=== PATIENT | male | born 1950 | race African-American/Black ===

== ENCOUNTER → 2016-11-17 | Outpatient (CLI) | payer MEDICARE, OTHER ==
[2016-11-17 11:25] VITALS: BP 105/68; PULSE 58; RESP 14; TEMP 98; BMI 25.0
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
== END | disposition home or self-care (01) ==
LOC: BARWHC3 11:08
PROVIDERS: ATTEND Surgery Plastic and Reconstructive Surgery
DX: Z48.815 Encounter for surgical aftercare following surgery on the digestive system (principal); E21.1 Secondary hyperparathyroidism, not elsewhere classified; E89.1 Postprocedural hypoinsulinemia; D50.8 Other iron deficiency anemias; E44.0 Moderate protein-calorie malnutrition; E55.9 Vitamin D deficiency, unspecified; K74.1 Hepatic sclerosis; N19 Unspecified kidney failure; K90.9 Intestinal malabsorption, unspecified; Z98.84 Bariatric surgery status
CPT/HCPCS: 99211

== ENCOUNTER → 2016-11-18 | Outpatient (CLI) | payer MEDICARE, OTHER ==
[2016-11-18 11:13] LABS: CH 28.7; CHCM 31.6; HCT 34.3 % (39.0-53.0); HDW 2.44; HGB 10.9 gm/dL (13.0-17.5); MCH 29.2 pg (25.0-35.0); MCHC 31.9 g/dL (31.0-37.0); MCV 91.4 fL (80.0-100.0); RBC 3.75 m/uL (4.30-5.90); RDW 14.5 % (11.5-15.5); WBC 4.2 k/uL (3.8-10.6)
[2016-11-18 11:15] LABS: Partial Thromboplastin Time 26.6 sec (22.0-30.0); Prothrombin Time 10.6 sec (9.0-12.0)
[2016-11-18 11:24] LABS: ALT 34 U/L (21-72); AST 27 U/L (17-59); Alkaline Phosphatase 114 U/L (38-126); Anion Gap 11 mmol/L; Blood Urea Nitrogen 29 mg/dL (9-20); Calcium 8.3 mg/dL (8.4-10.2); Carbon Dioxide 20 mmol/L (22-30); Chloride 113 mmol/L (98-107); Cholesterol 90 mg/dL (<200); Glucose 88 mg/dL (74-99); HDL Cholesterol 43 mg/dL (40-60); Iron 57 ug/dL (49-181); Magnesium 2.2 mg/dL (1.6-2.3); Non-African American GFR(MDRD) 29 (>60 ml/min/1.73 sqM); Phosphorous 4.9 mg/dL (2.5-4.5); Potassium 5.7 mmol/L (3.5-5.1); Sodium 144 mmol/L (137-145); Total Bilirubin 0.3 mg/dL (0.2-1.3); Total Protein 6.3 g/dL (6.3-8.2); Triglycerides 40 mg/dL (<150)
[2016-11-18 11:37] LABS: Prealbumin 18 mg/dL (18-36); Total Iron Binding Capacity 271 ug/dL (261-462)
[2016-11-18 12:33] LABS: Vitamin B12 496 pg/mL
[2016-11-18 14:09] LABS: Hemoglobin A1C 5.3 % (4.2-6.1)
[2016-11-23 14:09] LABS: Selenium 88 mcg/L (63-160)
== END | disposition home or self-care (01) ==
LOC: LABWHC1 10:41
PROVIDERS: ATTEND Surgery Plastic and Reconstructive Surgery
DX: E66.01 Morbid (severe) obesity due to excess calories (principal); E21.1 Secondary hyperparathyroidism, not elsewhere classified; D50.8 Other iron deficiency anemias; K90.89 Other intestinal malabsorption; E44.0 Moderate protein-calorie malnutrition; E55.9 Vitamin D deficiency, unspecified; K74.1 Hepatic sclerosis; N19 Unspecified kidney failure; K90.9 Intestinal malabsorption, unspecified
CPT/HCPCS: 36415; 80053; 80061; 82306; 82525; 82607; 82728; 82746; 83036; 83540; 83550; 83735; 83970; 84100; 84134; 84255; 84425; 84443; 84590; 84630; 85027; 85610; 85730

== ENCOUNTER → 2016-12-15 | Outpatient (CLI) | payer MEDICARE, OTHER ==
[2016-12-15 11:40] VITALS: BP 144/95; PULSE 75; RESP 20; TEMP 98.3; BMI 25.4
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
== END | disposition home or self-care (01) ==
LOC: BARWHC3 10:56
PROVIDERS: ATTEND Surgery Plastic and Reconstructive Surgery
DX: Z48.815 Encounter for surgical aftercare following surgery on the digestive system (principal); E66.01 Morbid (severe) obesity due to excess calories; Z68.41 Body mass index [BMI] 40.0-44.9, adult; Z98.84 Bariatric surgery status
CPT/HCPCS: 99211

== ENCOUNTER → 2016-12-20 | Outpatient (CLI) | payer MEDICARE, OTHER ==
--- NOTE | 2016-12-20 11:45 | US ---
EXAMINATION TYPE: US kidneys/renal and bladder DATE OF EXAM: 12/20/2016 10:22 AM COMPARISON: CT in PACS CLINICAL HISTORY: 66-year-old male N18.3 chronic kidney disease. Chronic Kidney Diease TECHNIQUE: Multiple sonographic images of the kidneys and bladder were obtained. FINDINGS: Right Kidney: 8.5 x 3.7 x 4.3 cm Left Kidney: 9.5 x 4.1 x 4.6 cm Right Kidney: Very difficult to evaluate due to overlying bowel gas, much of mid to lower pole is obs cured. No gross hydronephrosis. Left Kidney: No hydronephrosis. Bladder: Bladder wall thickening at 1.1 cm BilateraNoJets seen: No PRESSION: 1. No hydronephrosis seen. Much of the mid to lower pole of the right kidney is obscured and not eval uated. 2. Moderate circumferential bladder wall thickening. Correlate for cystitis or bladder wall hypertrop hy from chronic outlet obstruction.
== END | disposition home or self-care (01) ==
LOC: RADUSWWP 10:00
PROVIDERS: ATTEND Internal Medicine Nephrology
DX: N18.3 Chronic kidney disease, stage 3 (moderate) (principal)
CPT/HCPCS: 76770

== ENCOUNTER → 2017-02-02 | Outpatient (CLI) | payer MEDICARE, OTHER ==
[2017-02-02 14:27] VITALS: BP 138/83; PULSE 81; TEMP 97.8; BMI 25.6
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
== END | disposition home or self-care (01) ==
LOC: BARWHC3 11:03
PROVIDERS: ATTEND Surgery Plastic and Reconstructive Surgery
DX: Z48.815 Encounter for surgical aftercare following surgery on the digestive system (principal); M79.3 Panniculitis, unspecified; Z98.84 Bariatric surgery status; Z68.25 Body mass index [BMI] 25.0-25.9, adult
CPT/HCPCS: 99211

== ENCOUNTER → 2017-03-23 | Outpatient (CLI) | payer MEDICARE, OTHER ==
--- NOTE | 2017-03-23 10:37 | P.PN ---
Progress Note - Text To whom it may concern: Mr. Kevin Rankin is under my surgical care and has scheduled to undergo major surgery the week of May 01. He is under medical supervision in the interim. Regards, Valery Wills MD, FACS
[2017-03-23 10:39] VITALS: BP 149/91; PULSE 58; RESP 16; TEMP 98.4; BMI 25.5
== END | disposition home or self-care (01) ==
LOC: BARWHC3 10:20
PROVIDERS: ATTEND Surgery Plastic and Reconstructive Surgery
DX: Z48.815 Encounter for surgical aftercare following surgery on the digestive system (principal); Z98.84 Bariatric surgery status
CPT/HCPCS: 99211

== ENCOUNTER → 2017-04-20 | Outpatient (CLI) | payer MEDICARE, OTHER ==
[2017-04-20 11:57] LABS: CH 30.6; CHCM 31.3; HCT 39.1 % (39.0-53.0); HDW 2.32; HGB 12.4 gm/dL (13.0-17.5); MCH 31.2 pg (25.0-35.0); MCHC 31.7 g/dL (31.0-37.0); MCV 98.3 fL (80.0-100.0); Mean Platelet Volume 7.6; RBC 3.98 m/uL (4.30-5.90); RDW 13.6 % (11.5-15.5); WBC 4.3 k/uL (3.8-10.6)
[2017-04-20 12:05] LABS: Calcium 8.6 mg/dL (8.4-10.2); Potassium 5.1 mmol/L (3.5-5.1); Total Bilirubin 0.3 mg/dL (0.2-1.3); Total Protein 6.2 g/dL (6.3-8.2)
[2017-04-20 15:12] VITALS: BP 152/98; PULSE 56; RESP 15; TEMP 97.7; BMI 25.4
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
== END ==
LOC: BARWHC3 10:47
PROVIDERS: ATTEND Surgery Plastic and Reconstructive Surgery
DX: D50.9 Iron deficiency anemia, unspecified (principal); I13.10 Hypertensive heart and chronic kidney disease without heart failure, with stage 1 through stage 4 chronic kidney disease, or unspecified chronic kidney disease; I10 Essential (primary) hypertension; M17.0 Bilateral primary osteoarthritis of knee; N18.3 Chronic kidney disease, stage 3 (moderate); E66.01 Morbid (severe) obesity due to excess calories; Z68.25 Body mass index [BMI] 25.0-25.9, adult; Z87.39 Personal history of other diseases of the musculoskeletal system and connective tissue; Z98.84 Bariatric surgery status
CPT/HCPCS: 84134; 84425; 80053; 85027; 36415; G0463; 99211

== ENCOUNTER → 2017-06-14 | Outpatient (CLI) | payer MEDICARE, OTHER ==
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
== END | disposition home or self-care (01) ==
CPT/HCPCS: 99211

== ENCOUNTER → 2017-10-09 | Outpatient (CLI) | payer MEDICARE, OTHER ==
--- NOTE | 2017-10-09 08:48 | CT ---
EXAMINATION TYPE: CT chest wo con DATE OF EXAM: 10/09/2017 COMPARISON: 05/21/2017, 07/08/2016 HISTORY: Abnormal CT of Chest CT DLP: 491 mGycm. Automated Exposure Control for Dose Reduction was Utilized. TECHNIQUE: CT scan of the thorax is performed without IV contrast. FINDINGS: Exam limited by lack of contrast. LUNGS: The lungs are grossly clear, there is no concerning parenchymal mass or nodule identified. T here is no pleural effusion or pneumothorax seen. The tracheobronchial tree is patent. Linear areas of subsegmental consolidation noted bilaterally most typical scar or atelectasis. There is a 3 mm nod ule within the right middle lobe on axial image 34. Additional 3 mm nodule axial image 30. Additional nodule 3 mm left upper lobe axial image 27 and 2 mm nodule image 22 MEDIASTINUM: Lack of IV contrast is noted to limit evaluation for mediastinal and especially hilar ad enopathy. There are no definitive greater than 1 cm hilar or mediastinal lymph nodes. Mild cardiomega ly. There is mild aneurysmal dilation the aortic arch and descending aorta measuring 4.[address] dimension. OTHER: Degenerative and hypertrophic changes spine. Previous surgery involving the upper abdomen. IMPRESSION: 1. There are multiple less than 5 mm pulmonary nodules which are noncalcified and too small to charac terize. Some of the nodules are not present on the CT scan of the chest dated 07/08/2016. Recommend fo llow-up CT scan in 6 months. 2. Cardiomegaly with areas of subsegmental consolidation compatible scarring or atelectasis. 3. Mild aneurysmal dilation aortic arch measuring 4.[address] scan of 07/08/2016.
== END | disposition home or self-care (01) ==
LOC: RADCTMAIN 07:22
PROVIDERS: ATTEND Internal Medicine
DX: I51.7 Cardiomegaly (principal); I71.2 Thoracic aortic aneurysm, without rupture; R91.8 Other nonspecific abnormal finding of lung field
CPT/HCPCS: 71250

== ENCOUNTER → 2017-10-11 | Outpatient (CLI) | payer MEDICARE, OTHER ==
[2017-10-11 15:49] VITALS: BP 149/85; PULSE 82; TEMP 97.5; BMI 24.5
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
== END | disposition home or self-care (01) ==
LOC: BARWHC3 14:40
PROVIDERS: ATTEND Surgery Plastic and Reconstructive Surgery
DX: Z48.815 Encounter for surgical aftercare following surgery on the digestive system (principal); R63.4 Abnormal weight loss; D50.9 Iron deficiency anemia, unspecified; I13.10 Hypertensive heart and chronic kidney disease without heart failure, with stage 1 through stage 4 chronic kidney disease, or unspecified chronic kidney disease; N18.3 Chronic kidney disease, stage 3 (moderate); K40.20 Bilateral inguinal hernia, without obstruction or gangrene, not specified as recurrent; M17.0 Bilateral primary osteoarthritis of knee; K21.9 Gastro-esophageal reflux disease without esophagitis; G47.33 Obstructive sleep apnea (adult) (pediatric); Z87.891 Personal history of nicotine dependence; Z86.59 Personal history of other mental and behavioral disorders; Z79.891 Long term (current) use of opiate analgesic; Z79.899 Other long term (current) drug therapy; Z79.02 Long term (current) use of antithrombotics/antiplatelets; Z98.84 Bariatric surgery status; Z86.73 Personal history of transient ischemic attack (TIA), and cerebral infarction without residual deficits
CPT/HCPCS: 99211

== ENCOUNTER → 2017-10-13 | Outpatient (CLI) | payer MEDICARE, OTHER ==
--- NOTE | 2017-10-13 08:39 | US ---
EXAMINATION TYPE: US abdomen limited DATE OF EXAM: 10/13/2017 COMPARISON: NONE CLINICAL HISTORY: R10.11 RUQ PAIN. Abd pain, no nausea EXAM MEASUREMENTS: Liver Length: 14.6 cm Gallbladder Wall: 0.1 cm CBD: 0.6 cm Right Kidney: 8.0 x 4.2 x 4.0 cm Pancreas: not seen due to bowel gas Liver: wnl Gallbladder: 0.4cm echogenic foci that is non shadowing and non mobile on posterior wall, probable p olyp Evidence for sonographic Ryder's sign: no CBD: wnl Right Kidney: small in size IMPRESSION: 1. Probable 4 mm gallbladder polyp. Annual surveillance is recommended for polyps of this size. 2. No sonographic evidence of acute cholecystitis.
== END | disposition home or self-care (01) ==
LOC: RADUSWWP 07:10
PROVIDERS: ATTEND Surgery Plastic and Reconstructive Surgery
DX: R10.11 Right upper quadrant pain (principal)
CPT/HCPCS: 76705

== ENCOUNTER → 2017-10-18 | Outpatient (CLI) | payer MEDICARE, OTHER ==
[2017-10-18 16:09] LABS: Appearance,Urine Clear (Clear); Bilirubin,Urine Negative (Negative); Blood,Urine Negative (Negative); Color,Urine Yellow; Glucose,Urine (UA) Negative (Negative); Ketones,Urine Negative (Negative); Leukocyte Esterase,Urine Negative (Negative); Nitrite,Urine Negative (Negative); PH, Urine 5.5 (5.0-8.0); Protein,Urine Trace (Negative); Urobilinogen,Urine <2.0 mg/dL (<2.0)
[2017-10-18 16:27] LABS: Albumin 3.7 g/dL (3.5-5.0); Magnesium 2.2 mg/dL (1.6-2.3); Phosphorus 3.9 mg/dL (2.5-4.5); Potassium 5.5 mmol/L (3.5-5.1); Uric Acid 5.1 mg/dL (3.5-8.5)
[2017-10-18 16:51] LABS: Anisocytosis Slight; Basophils % (A) 0 %; Eosinophils # (A) 0.2 k/uL (0-0.7); Eosinophils % (A) 4 %; HCT 36.7 % (39.0-53.0); HGB 11.7 gm/dL (13.0-17.5); Lymphocytes # (A) 1.1 k/uL (1.0-4.8); Lymphocytes % (A) 23 %; MCH 27.8 pg (25.0-35.0); MCHC 31.9 g/dL (31.0-37.0); MCV 87.1 fL (80.0-100.0); Mean Platelet Volume 8.3; Monocytes # (A) 0.4 k/uL (0-1.0); Monocytes % (A) 8 %; Neutrophils # (A) 3.2 k/uL (1.3-7.7); Neutrophils % (A) 62 %; Platelet Count 149 k/uL (150-450); RBC 4.21 m/uL (4.30-5.90); RDW 16.3 % (11.5-15.5); WBC 5.1 k/uL (3.8-10.6)
[2017-10-19 01:34] LABS: Iron Saturation 41.5 (15.00-50.00)
[2017-10-19 02:23] LABS: Parathyroid Hormone Intact 135.8 pg/mL (14.0-72.0)
== END | disposition home or self-care (01) ==
LOC: LABWHC1 15:14
PROVIDERS: ATTEND Nurse Practitioner Family
DX: E55.9 Vitamin D deficiency, unspecified (principal); M10.9 Gout, unspecified; N39.0 Urinary tract infection, site not specified; E21.3 Hyperparathyroidism, unspecified; D63.1 Anemia in chronic kidney disease; N18.3 Chronic kidney disease, stage 3 (moderate)
CPT/HCPCS: 36415; 80048; 81003; 82040; 82306; 82728; 83540; 83550; 83735; 83970; 84100; 84550; 85025

== ENCOUNTER 2017-11-10 06:22 | Day surgery (SDC) | payer MEDICARE, OTHER ==
[2017-11-03 11:32] VITALS: BMI 24.7
[~2017-11-10 06:22] MED LIST: DEXAMETHASONE SOD PHOSPHATE 10 MG/ML 1 ML VIAL IV ONE; HEPARIN SODIUM,PORCINE 5,000 UNIT/ML 1 ML VIAL SQ ONE; MIDAZOLAM 2 MG/2 ML VIAL IV PRN; MORPHINE SULFATE 4 MG/ML SYRINGE IV PRN; ONDANSETRON 4 MG/2 ML VIAL IVP ONE; SCOPOLAMINE 1.5MG/72HR PATCH TRANSDERM ONE; ceFAZolin IN SWFI 2 GM/20 ML SYRINGE IVP ONE
[2017-11-10] MEDS ORDERED: ACETAMINOPHEN IV (For NPO) 1,000 MG in EMPTY BAG 1 BAG IVPB ONE (06:28)
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
[2017-11-10] MEDS: LACTATED RINGERS 1,000 ML IV SCH ×2 (07:29→07:40)
[2017-11-10] MEDS ORDERED: LIDOCAINE 1% 20 ML VIAL (10MG/ML) FOR IV START INTRADERMA ONE ×2 (07:30→07:31)
[2017-11-10] MEDS ORDERED: MIDAZOLAM 2 MG/2 ML VIAL ONE (07:44)
[2017-11-10] MEDS ORDERED: NEOSTIGMINE 1 MG/ML 10 ML VIAL ONE (07:44)
[2017-11-10] MEDS ORDERED: ePHEDrine SULFATE/0.9% NACL/PF 50 MG/5 ML SYRINGE IV ONE (07:44)
[2017-11-10] MEDS ORDERED: SUCCINYLCHOLINE CHLORIDE 100 MG/5 ML SYR IV ONE (07:44)
[2017-11-10] MEDS ORDERED: LIDOCAINE 1% INJ 10MG/ML (20 ML MDV) ONE (07:44)
[2017-11-10] MEDS ORDERED: PROPOFOL 10 MG/ML 20 ML VIAL IV ONE (07:44)
[2017-11-10] MEDS ORDERED: GLYCOPYRROLATE 0.2 MG/ML 2 ML VIAL ONE (07:44)
[2017-11-10] MEDS ORDERED: ROCURONIUM BROMIDE 10 MG/ML 10 ML VIAL IV ONE (07:44)
[2017-11-10] MEDS ORDERED: HYDROmorphone (PF) 1 MG/ML ONE (07:44)
[2017-11-10] MEDS ORDERED: fentaNYL (PF) 50 MCG/ML 2 ML AMP ONE (07:44)
[2017-11-10] MEDS ORDERED: BUPIVACAINE (PF) 0.25% 30 ML VIAL SQ ONE (08:23)
[2017-11-10] MEDS ORDERED: TAMSULOSIN 0.4 MG CAP.ER.24H PO STA (11:05)
[2017-11-10 11:07] VITALS: TEMP 97.6
--- NOTE | 2017-11-10 11:16 | P.PCN ---
Date of Procedure: 11/10/17 Preoperative Diagnosis: Bilateral inguinal hernia Postoperative Diagnosis: Same, Pantaloon hernia left incarcerated, direct and indirect hernia right incarcerated, bilateral incarcerated inguinal lipomas Procedure(s) Performed: Robotic assisted bilateral inguinal hernia repairs with mesh, removal of bilateral inguinal lipomas Implants: Ventralight ST 11.4 cm [place] LOT [id number], REF [id number] Anesthesia: GETA, local Surgeon: Valery Wills Lab Support Service Tech #1: Fabrizio Bauer Pathology: other (bilateral inguinal lipoma) Condition: stable Disposition: floor Operative Findings: Pantaloon hernia on the left with larger inguinal and spermatic cord lipoma also excised. Spermatic cord lipoma bilateral also excised. Obliterated inguinal floor along left groin.
[2017-11-10] MEDS ORDERED: HYDROmorphone 0.5 MG/0.5 ML SYRINGE IVP ONE (11:18)
[2017-11-10] MEDS ORDERED: hydrALAZINE HCL 20 MG/ML 1 ML VIAL IVP ONE (11:57)
[2017-11-10 13:00] VITALS: RESP 18
[2017-11-10] MEDS ORDERED: LABETALOL 5 MG/ML VIAL MDV IV ONE (13:29)
[2017-11-10] MEDS ORDERED: HYDROcodone/APAP 10-325MG 1 EACH TAB PO ONE (13:30)
[2017-11-10 13:46] VITALS: BP 159/90; PULSE 71
--- NOTE | 2017-11-26 21:32 | P.OP ---
Date of Procedure: 11/10/17 Description of Procedure: SURGEON: ALIDA CABRAL MD THERAPEUTIC PROGRAM WORKER: 1. DEXTER STOVALL PREOPERATIVE DIAGNOSES: 1. Bilateral inguinal hernia. 2. Hypertensive heart disease with cardiomyopathy. 3. History of cerebrovascular accident. 4. History of hepatitis. 5. Stage III renal disease due to hypertension. 6. Chronic anemia. 7. History of gastric bypass. 8. History of neuropathy. 9. Gastroesophageal reflux disease. 10. Chronic pain syndrome. POSTOPERATIVE DIAGNOSES: 1. Bilateral inguinal hernia. 2. Hypertensive heart disease with cardiomyopathy. 3. History of cerebrovascular accident. 4. History of hepatitis. 5. Stage III renal disease due to hypertension. 6. Chronic anemia. 7. History of gastric bypass. 8. History of neuropathy. 9. Gastroesophageal reflux disease. 10. Chronic pain syndrome. 11. Bilateral incarcerated inguinal lipomas. 12. Direct and indirect hernia right incarcerated 13. Pantaloon hernia left incarcerated OPERATION: 1. Robotic-assisted da Juliana Xi laparoscopic repair of bilateral incarcerated inguinal hernia with mesh 2. Robotic-assisted da Juliana Xi laparoscopic excision of incarcerated bilateral inguinal and spermatic cord lipoma. ANESTHESIA: General with local anesthetic ESTIMATED BLOOD LOSS: 5 mL. SPECIMENS REMOVED: other (bilateral inguinal lipoma) COMPLICATIONS: None. Implants: Ventralight ST 11.4 cm [place] LOT [id number], REF [id number] Condition: stable INDICATIONS: The patient is a 67-year-old gentleman who presents with history of left groin pain. Now presents for definitive surgical intervention. Laparoscopic versus open and robotic approaches were discussed. Benefits and risks including bleeding, infection, and injury to the vas deferens as well as sterility and chronic groin pain were reviewed. Placement of mesh was also described. Informed consent was obtained. DESCRIPTION: In the preoperative area, the patient was marked with indelible marker along the inguinal hernia. The patient was brought to the operating room and initially laid in supine position. The abdomen had been prepped and draped in standard sterile fashion. Ioban draping was also placed. Huerta catheter was placed. Prior to incision, a timeout protocol was confirmed with surgical team regarding patient's name including procedures to be performed and location along the bilateral groin. Initial positioning for the robotic assisted ports were selected whereby 20 cm superior to the target anatomy, 0 degree 5 mm laparoscopic trocar entry was performed at the left upper quadrant. The abdomen was insufflated to 15 mmHg which he had tolerated well. Diagnostic laparoscopy demonstrated severe intra- abdominal adhesions of the greater omentum to the abdominal wall involving the epigastrium including left lower quadrant and right lower quadrant. Additionally, 4 cm direct inguinal hernia along the right groin was found. Next, along the epigastrium, 8 mm robot trocar was placed. An 8-mm robotic trocar was placed under direct visualization at the right upper quadrant. The 5 mm port was exchanged for an 8 mm trocar. All trocars were positioned 8 to 10-cm apart from each other. The [employer] XI robot was primed, draped, prepared for docking along the left side of the patient. I then went to the [employer] Xi console. The seed analysis laboratory assistant was at bedside for exchange of the robot arms and equipment. Along the abdominal wall, extensive lysis of adhesions over 1 hour was performed using blunt dissection including vessel sealer. Previous mesh repair of the epigastrium was found and also similarly resected from adhesions. Adhesions were also identified along the left lower quadrant with adhesions also resected. At the right groin, a 4 cm direct inguinal hernia was identified lateral to the epigastric vessels. The hernia sac was evaginated whereby the peritoneum was scored using Endo scissors with cautery. Once completely reduced into the abdominal cavity, the peritoneal sac of the hernia was stripped and a lipoma of the right groin was reduced. The sac was resected and then passed off for further pathological analysis. The size of the hernia defect was 4 cm with intraoperative films obtained. Using a 2-0 Surgidac, the peritoneal defect of the right inguinal hernia site was closed using a pursestring suture of 2-0 Surgidac. The defect was found to be completely closed with complete reduction of the right inguinal hernia was confirmed. As an onlay, an 11.[address] mesh by [employer] was initially cut in half and entered into the abdominal cavity via the 8 mm trocar. The mesh was tacked to the pelvis using 2-0 VLOC x 9-inch length sutures. At the left groin, a 4 cm pantaloon hernia involving indirect and direct inguinal hernia was identified. The hernia sac was evaginated whereby the peritoneum was scored using Endo scissors with cautery. Using a 2-0 Surgidac, the peritoneal defect of the left inguinal hernia site was closed using a pursestring suture of 2-0 Surgidac. The defect was found to be completely closed with complete reduction of the left inguinal hernia was confirmed. As an onlay, an 11.[address] mesh by [employer] was initially cut in half and entered into the abdominal cavity via the 8 mm trocar. The mesh was tacked to the pelvis using 2-0 VLOC x 9-inch length suture The robot was undocked from the patient's bedside. I then rescrubbed into the case. The fascial defect was reapproximated using 0-Vicryl and a Remi Amarilis. Insufflation was released from the abdominal cavity and all instruments were removed from the abdominal cavity. The rest of incisions were reapproximated using 4-0 Monocryl in a running subcuticular fashion. Local anesthetic was placed along the incision including bilateral groin block. Incisions were cleansed using dilute hydrogen peroxide. Dermabond was applied to the skin. At the end of the procedure, the needle, sponge and instrument counts had been verified correct by the director medical surgical. The patient had tolerated the procedure well and was taken to the postanesthesia care unit in stable condition. FINDINGS: 1. Pantaloon hernia on the left with larger inguinal and spermatic cord lipoma also excised, Nyhus type III. 2. Spermatic cord lipoma bilateral also excised. 3. Obliterated inguinal floor along left groin, Nyhus type III Plan - Discharge Summary New Discharge Prescriptions: New Tamsulosin [Flomax] 0.4 mg PO DAILY #7 cap Continue Carvedilol [Coreg] 25 mg PO BID Gabapentin [Neurontin] 600 mg PO Q6HR HYDROcodone/APAP 10-325MG [[place] 10-325] 1 tab PO Q4HR PRN PRN Reason: Pain Multivitamin [Men's Multi-Vitamin] 1 each PO DAILY Calcium Carbonate [Calcium] 600 mg PO BID #60 tablet Vitamin A 8,000 unit PO DAILY #30 capsule Ascorbic Acid [Vitamin C] 1,000 mg PO DAILY Glucosamine/Chondr Lopez A Sod [[place] Bi-Flex Caplet] 1 each PO BID Zinc 1 tab PO DAILY DULoxetine HCL [Cymbalta] 60 mg PO QAM Ergocalciferol [Vitamin D2 (DRISDOL)] 50,000 unit PO WE Discontinued Tangent-3 Fatty Acids [Tangent-3] 1,000 mg PO BID Discharge Medication List Carvedilol [Coreg] 25 mg PO BID 10/23/14 [History] Gabapentin [Neurontin] 600 mg PO Q6HR 06/03/15 [History] HYDROcodone/APAP 10-325MG [[place] 10-325] 1 tab PO Q4HR PRN 09/28/15 [History] Calcium Carbonate [Calcium] 600 mg PO BID #60 tablet 10/14/15 [Rx] Multivitamin [Men's Multi-Vitamin] 1 each PO DAILY 10/14/15 [History] Vitamin A 8,000 unit PO DAILY #30 capsule 10/14/15 [Rx] Ascorbic Acid [Vitamin C] 1,000 mg PO DAILY 01/28/16 [History] Glucosamine/Chondr Lopez A Sod [Osteo Bi-Flex Caplet] 1 each PO BID 01/28/16 [ History] Zinc 1 tab PO DAILY 12/16/16 [History] DULoxetine HCL [Cymbalta] 60 mg PO QAM 06/14/17 [History] Ergocalciferol [Vitamin D2 (DRISDOL)] 50,000 unit PO WE 08/10/17 [History] Tamsulosin [Flomax] 0.4 mg PO DAILY #7 cap 11/10/17 [Rx] Follow up Appointment(s)/Referral(s): Alida Cabral MD [STAFF PHYSICIAN] - 11/14/17 5:00 pm ([facility] ) Patient Instructions/Handouts: *Surgery [facility] - (Anesthesia) Discharge Instructions Outpatient Surgery, Laparoscopic Herniorrhaphy (DC), Inguinal Hernia Repair (DC) Activity/Diet/Wound Care/Special Instructions: PLEASE TAKE PAIN MEDICATIONS PER YOUR PAIN SPECIALIST. No lifting over 4 pounds in 4 weeks. NO BIKE RIDING for 2 weeks. May shower. No bathtub soaks. PT WAS ST CATH 1430 IF UNABLE TO VOID 8 HR AND FEELS PRESSURE AND TAKING FLUIDS WELL NEED TO RETURN TO ER OR CALL Discharge Disposition: HOME SELF-CARE
== END 2017-11-10 14:44 | disposition home or self-care (01) ==
LOC: OR 06:22
PROVIDERS: ATTEND Surgery Plastic and Reconstructive Surgery
DX: K40.00 Bilateral inguinal hernia, with obstruction, without gangrene, not specified as recurrent (principal); D17.6 Benign lipomatous neoplasm of spermatic cord; I13.10 Hypertensive heart and chronic kidney disease without heart failure, with stage 1 through stage 4 chronic kidney disease, or unspecified chronic kidney disease; N18.3 Chronic kidney disease, stage 3 (moderate); I42.9 Cardiomyopathy, unspecified; Z86.73 Personal history of transient ischemic attack (TIA), and cerebral infarction without residual deficits; D64.9 Anemia, unspecified; Z98.84 Bariatric surgery status; G62.9 Polyneuropathy, unspecified; K21.9 Gastro-esophageal reflux disease without esophagitis; G89.4 Chronic pain syndrome; Z87.19 Personal history of other diseases of the digestive system; M19.90 Unspecified osteoarthritis, unspecified site; N42.9 Disorder of prostate, unspecified; G43.909 Migraine, unspecified, not intractable, without status migrainosus; Z80.0 Family history of malignant neoplasm of digestive organs; Z79.899 Other long term (current) drug therapy; Z87.891 Personal history of nicotine dependence
CPT/HCPCS: 88304; 88305; 49650; 55559; C1781; J2250; J2270; J0360; J1644; J1100; J2710; J2405; J2001; J3010; J1170 ×2; J0131; J0330; J2704; J0690

== ENCOUNTER → 2017-11-17 | Outpatient (CLI) | payer MEDICARE, OTHER ==
--- NOTE | 2017-11-17 12:15 | XR ---
EXAMINATION TYPE: XR foot complete LT DATE OF EXAM: 11/17/2017 COMPARISON: NONE HISTORY: Hallux valgus left foot TECHNIQUE: 3 views left foot FINDINGS: Hallux valgus deformity of the left first digit is present. Hammertoes are present. Calcane al plantar and Achilles tendon heel spurs are present. IMPRESSION: 1. Degenerative changes. No acute osseous abnormality is identified
== END | disposition home or self-care (01) ==
LOC: RADXRMAIN 11:17
PROVIDERS: ATTEND Surgery Plastic and Reconstructive Surgery
DX: M79.672 Pain in left foot (principal)

== ENCOUNTER → 2018-01-09 | Outpatient (CLI) | payer MEDICARE, OTHER ==
[2018-01-09 20:59] LABS: Appearance,Urine Clear (Clear); Basophils % (A) 0 %; Bilirubin,Urine Negative (Negative); Blood,Urine Negative (Negative); Color,Urine Yellow; Eosinophils # (A) 0.4 k/uL (0-0.7); Eosinophils % (A) 8 %; Glucose,Urine (UA) Negative (Negative); HCT 39.8 % (39.0-53.0); Ketones,Urine Negative (Negative); Leukocyte Esterase,Urine Negative (Negative); Lymphocytes # (A) 1.1 k/uL (1.0-4.8); Lymphocytes % (A) 22 %; MCH 28.9 pg (25.0-35.0); MCHC 32.6 g/dL (31.0-37.0); MCV 88.5 fL (80.0-100.0); Mean Platelet Volume 8.2; Monocytes # (A) 0.3 k/uL (0-1.0); Monocytes % (A) 6 %; Neutrophils # (A) 3.1 k/uL (1.3-7.7); Neutrophils % (A) 62 %; Nitrite,Urine Negative (Negative); PH, Urine 5.5 (5.0-8.0); Platelet Count 143 k/uL (150-450); Protein,Urine Trace (Negative); RDW 13.8 % (11.5-15.5); Specific Gravity,Urine 1.013 (1.001-1.035); Urobilinogen,Urine <2.0 mg/dL (<2.0)
[2018-01-09 21:26] LABS: Albumin 4.2 g/dL (3.5-5.0); Calcium 9.2 mg/dL (8.4-10.2); Phosphorus 4.7 mg/dL (2.5-4.5); Potassium 5.1 mmol/L (3.5-5.1); Uric Acid 6.1 mg/dL (3.5-8.5)
[2018-01-10 01:08] LABS: Vitamin D 25 Hydroxy 30.2 ng/mL (30.0-100.0)
[2018-01-10 01:18] LABS: Iron Saturation 16.84 (15.00-50.00); Parathyroid Hormone Intact 226.3 pg/mL (14.0-72.0)
== END | disposition home or self-care (01) ==
LOC: LABMAIN 20:25
PROVIDERS: ATTEND Internal Medicine Nephrology
DX: N18.3 Chronic kidney disease, stage 3 (moderate) (principal); D50.9 Iron deficiency anemia, unspecified; N25.81 Secondary hyperparathyroidism of renal origin; N39.0 Urinary tract infection, site not specified; M10.9 Gout, unspecified; E55.9 Vitamin D deficiency, unspecified
CPT/HCPCS: 36415; 80048; 81003; 82040; 82306; 82728; 83540; 83550; 83735; 83970; 84100; 84550; 85025

== ENCOUNTER 2018-02-15 13:10 | Emergency (ER) | payer MEDICARE, OTHER ==
[2018-02-15] MEDS ORDERED: cloNIDine HCL 0.2 MG TAB PO STA (13:26)
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
--- NOTE | 2018-02-15 14:08 | XR ---
EXAMINATION TYPE: XR knee 3V RT DATE OF EXAM: 02/15/2018 CLINICAL HISTORY: Fall with right knee pain TECHNIQUE: Three views of the right knee are obtained. COMPARISON: None. FINDINGS: There is no acute fracture/dislocation evident in right knee. There is extensive tricompar tmental arthrosis with overhanging large protuberant marginal osteophytes, tricompartmental joint spa ce narrowing, and tricompartmental subchondral sclerosis. A moderate suprapatellar joint effusion is identified. No fat fluid level is seen to suggest lipohemarthrosis. There is mild joint space narrowi ng and acetabular roof sclerosis of the right hip. IMPRESSION: 1. No acute fracture or dislocation in the right knee or femur. 2. Moderate suprapatellar joint effusion. 3. Extensive tricompartmental right knee arthrosis. Mild right femoral acetabular arthrosis.
[2018-02-15] MEDS ORDERED: MORPHINE SULFATE 4 MG/ML SYRINGE IM STA ×2 (14:36)
[2018-02-15 15:48] VITALS: BP 192/106; PULSE 64; RESP 20; TEMP 99.1
== END 2018-02-15 15:46 | disposition home or self-care (01) ==
LOC: EC 13:10
DX: S89.91XA Unspecified injury of right lower leg, initial encounter (principal); I12.9 Hypertensive chronic kidney disease with stage 1 through stage 4 chronic kidney disease, or unspecified chronic kidney disease; N18.9 Chronic kidney disease, unspecified; G62.9 Polyneuropathy, unspecified; D64.9 Anemia, unspecified; F32.9 Major depressive disorder, single episode, unspecified; F17.200 Nicotine dependence, unspecified, uncomplicated; Z86.73 Personal history of transient ischemic attack (TIA), and cerebral infarction without residual deficits; Z79.02 Long term (current) use of antithrombotics/antiplatelets; Z79.899 Other long term (current) drug therapy; V18.0XXA Pedal cycle driver injured in noncollision transport accident in nontraffic accident, initial encounter; Y92.009 Unspecified place in unspecified non-institutional (private) residence as the place of occurrence of the external cause
CPT/HCPCS: 99284; 96372; 73552; 73564; J2270

== ENCOUNTER → 2018-04-25 | Outpatient (CLI) | payer MEDICARE ==
[2018-04-25 16:56] LABS: Basophils % (A) 0 %; Eosinophils # (A) 0.3 k/uL (0-0.7); Eosinophils % (A) 3 %; HCT 40.5 % (39.0-53.0); HGB 13.1 gm/dL (13.0-17.5); Lymphocytes % (A) 11 %; MCH 29.4 pg (25.0-35.0); MCHC 32.2 g/dL (31.0-37.0); MCV 91.2 fL (80.0-100.0); Mean Platelet Volume 7.4; Monocytes # (A) 0.5 k/uL (0-1.0); Monocytes % (A) 6 %; Neutrophils # (A) 7.1 k/uL (1.3-7.7); Neutrophils % (A) 79 %; Platelet Count 206 k/uL (150-450); RBC 4.44 m/uL (4.30-5.90); RDW 15.2 % (11.5-15.5)
[2018-04-25 17:08] LABS: Calcium 8.4 mg/dL (8.4-10.2); Magnesium 2.2 mg/dL (1.6-2.3); Phosphorus 3.3 mg/dL (2.5-4.5); Uric Acid 4.3 mg/dL (3.5-8.5)
[2018-04-25 20:17] LABS: Appearance,Urine Cloudy (Clear); Bacteria,Urine Moderate /hpf; Bilirubin,Urine Negative (Negative); Blood,Urine Moderate (Negative); Color,Urine Yellow; Glucose,Urine (UA) Negative (Negative); Ketones,Urine Negative (Negative); Leukocyte Esterase,Urine Large (Negative); Mucus,Urine Rare /hpf; Nitrite,Urine Negative (Negative); PH, Urine 5.5 (5.0-8.0); Protein,Urine 1+ (Negative); RBC,Urine 45 /hpf (0-5); Specific Gravity,Urine 1.013 (1.001-1.035); Squamous Epithelial Cell,Urine <1 /hpf (0-4); Urobilinogen,Urine <2.0 mg/dL (<2.0); WBC,Urine >182 /hpf (0-5)
[2018-04-26 01:21] LABS: Iron Saturation 17.52 (15.00-50.00)
[2018-04-26 01:29] LABS: Vitamin D 25 Hydroxy 34.8 ng/mL (30.0-100.0)
== END | disposition home or self-care (01) ==
LOC: LABWHC1 16:07
PROVIDERS: ATTEND Internal Medicine Nephrology
DX: N39.0 Urinary tract infection, site not specified (principal); D50.9 Iron deficiency anemia, unspecified; E55.9 Vitamin D deficiency, unspecified; N18.3 Chronic kidney disease, stage 3 (moderate); M10.9 Gout, unspecified
CPT/HCPCS: 36415; 80048; 81001; 82306; 82728; 83540; 83550; 83735; 83970; 84100; 84550; 85025

== ENCOUNTER 2018-05-04 18:41 | Emergency (ER) | payer MEDICARE, OTHER ==
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
[2018-05-04 21:23] LABS: Basophils % (A) 0 %; Eosinophils # (A) 0.3 k/uL (0-0.7); Eosinophils % (A) 4 %; HCT 38.9 % (39.0-53.0); HGB 12.2 gm/dL (13.0-17.5); Lymphocytes % (A) 15 %; MCH 28.3 pg (25.0-35.0); MCHC 31.5 g/dL (31.0-37.0); Monocytes # (A) 0.3 k/uL (0-1.0); Monocytes % (A) 5 %; Neutrophils # (A) 4.6 k/uL (1.3-7.7); Neutrophils % (A) 73 %; Platelet Count 233 k/uL (150-450); RBC 4.32 m/uL (4.30-5.90); RDW 14.8 % (11.5-15.5); WBC 6.3 k/uL (3.8-10.6)
[2018-05-04 21:29] LABS: Appearance,Urine Clear (Clear); Bilirubin,Urine Negative (Negative); Blood,Urine Negative (Negative); Color,Urine Light Yellow; Glucose,Urine (UA) Negative (Negative); Ketones,Urine Negative (Negative); Leukocyte Esterase,Urine Negative (Negative); Nitrite,Urine Negative (Negative); Protein,Urine Negative (Negative); Specific Gravity,Urine 1.007 (1.001-1.035); Urobilinogen,Urine <2.0 mg/dL (<2.0)
[2018-05-04 21:45] LABS: Albumin 3.6 g/dL (3.5-5.0); Calcium 8.5 mg/dL (8.4-10.2); Potassium 5.5 mmol/L (3.5-5.1); Total Bilirubin 0.2 mg/dL (0.2-1.3); Total Protein 6.4 g/dL (6.3-8.2)
--- NOTE | 2018-05-04 21:56 | US ---
EXAMINATION TYPE: US scrotum with doppler. Grayscale and color Doppler Duplex imaging performed of michael blunt scrotum. DATE OF EXAM: 05/04/2018 COMPARISON: NONE CLINICAL HISTORY: Pain. left testicle discomfort EXAM MEASUREMENTS: TESTICLES: Right Testicle: 3.9 x 2.1 x 3.0 cm Left Testicle: 3.4 x 2.7 x 2.8 cm EPIDIDYMIS HEAD: Right Epididymis: 1.3 x 0.7 cm Left Epididymis: 1.0 x 0.7 cm Doppler performed to assess for testicular vascularity; good bilateral color flow and waveforms are s een. There is no evidence of testicular torsion. Presence of hydroceles: fluid surrounding both testicle, left greater than right Presence of varicoceles: none appreciated left testicle has increased vascularity as compared to right, there is also increased flow surroundin g the testicle, this probably represents the epididymis, consistent with orchitis and epididymitis. IMPRESSION: There is hyperemia of the left testicle that could relate to orchitis. No testicular tors ion or mass. Bilateral hydroceles. Left epididymis hyperemia consistent with epididymitis.
[2018-05-04] MEDS ORDERED: LEVOFLOXACIN 500 MG TAB PO STA (23:13)
[2018-05-04 23:49] VITALS: BP 170/90; PULSE 67; RESP 17; TEMP 98.6
[2018-05-05 14:35] LABS: C. trachomatis,PCR Negative (Neg,Equiv); Chlamydia trachomatis Source Urine; N. gonorrhoeae,PCR Negative (Neg,Equiv); Neisseria Source Urine
== END 2018-05-04 23:50 | disposition home or self-care (01) ==
LOC: EC 18:41
DX: N45.3 Epididymo-orchitis (principal); M19.90 Unspecified osteoarthritis, unspecified site; G62.9 Polyneuropathy, unspecified; F32.9 Major depressive disorder, single episode, unspecified; I12.9 Hypertensive chronic kidney disease with stage 1 through stage 4 chronic kidney disease, or unspecified chronic kidney disease; N18.9 Chronic kidney disease, unspecified; F17.200 Nicotine dependence, unspecified, uncomplicated; Z98.890 Other specified postprocedural states; Z86.73 Personal history of transient ischemic attack (TIA), and cerebral infarction without residual deficits; Z79.899 Other long term (current) drug therapy
CPT/HCPCS: 36415; 76870; 80053; 81003; 85025; 87086; 87491; 87591; 93975; 99284

== ENCOUNTER 2018-08-17 08:07 | Day surgery (SDC) | payer MEDICARE ==
[2018-08-16 13:15] VITALS: BMI 23.5
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
[~2018-08-17 08:07] MED LIST changes: -DEXAMETHASONE SOD PHOSPHATE 10 MG/ML 1 ML VIAL IV ONE; -HEPARIN SODIUM,PORCINE 5,000 UNIT/ML 1 ML VIAL SQ ONE; +LACTATED RINGERS 1,000 ML IV SCH; +LIDOCAINE 1% 20 ML VIAL (10MG/ML) FOR IV START INTRADERMA PRN; -MIDAZOLAM 2 MG/2 ML VIAL IV PRN; -MORPHINE SULFATE 4 MG/ML SYRINGE IV PRN; -ONDANSETRON 4 MG/2 ML VIAL IVP ONE; -SCOPOLAMINE 1.5MG/72HR PATCH TRANSDERM ONE; -ceFAZolin IN SWFI 2 GM/20 ML SYRINGE IVP ONE
[2018-08-17 08:49] VITALS: RESP 18; TEMP 97.6
[2018-08-17] MEDS ORDERED: LACTATED RINGERS 1,000 ML IV ONE (08:50)
[2018-08-17] MEDS ORDERED: PROPOFOL 10 MG/ML 20 ML VIAL IV ONE (09:04)
[2018-08-17] MEDS ORDERED: LIDOCAINE 1% INJ 10MG/ML (20 ML MDV) ONE (09:04)
--- NOTE | 2018-08-17 09:38 | P.PCN ---
Date of Procedure: 08/17/18 Description of Procedure: PREOPERATIVE DIAGNOSIS: Dysphagia. Epigastric abdominal pain Chronic tobacco abuse s/p Dorian-en-y gastric bypass POSTOPERATIVE DIAGNOSIS: Dysphagia. Epigastric abdominal pain Chronic tobacco abuse s/p Dorian-en-y gastric bypass Gastritis Gastrojejunal stricture with chronic ulcer without perforation Erosive esophagitis OPERATION: Esophagogastrojejunoscopy with balloon dilatation from 15 to 20 mm. Esophagogastrojejunoscopy with cold biopsy forceps SURGEON: Valery Wills MD ANESTHESIA: MAC. INDICATIONS: The patient is a 68-year-old male who presents with a history of dysphagia, gastric bypass including epigastric abdominal pain. Benefits and risks of the procedure were described. Informed consent was obtained. DESCRIPTION: The patient was brought into the endoscopy suite and laid in the left lateral decubitus position. After a timeout was confirmed, the procedure was initiated. An Olympus gastroscope was passed along the posterior oropharynx down to the distal esophagus where the squamocolumnar junction was unremarkable. The gastric pouch was entered. A gastrojejunal stricture of 15 mm was found as the adult gastroscope was 9.5 mm in size. A [employer] balloon dilator was placed through the scope. Final insufflation up to 20 mm was performed with a total of 2 minutes. The scope was advanced up to 60 cm from the incisors into the Dorian limb. The mucosa of the gastrojejunal anastomosis was intact. Inflammation of the gastrojejunal anastomosis was encountered. Cold biopsy forceps were taken of the gastric pouch. No full- thickness injury was encountered. The GI tract was desufflated. The patient tolerated the procedure well. FINDINGS: Stricture of approximately 15 mm encountered. LA grade B erosive esophagitis Successful balloon dilatation to 20 mm. Inflammation of the gastrojejunal anastomosis was encountered. Cold biopsy forceps were taken of the gastric pouch. RECOMMENDATIONS: Recommend 4 week treatment Zantac. Tobacco cessation and advised Plan - Discharge Summary New Discharge Prescriptions: New Ranitidine HCl [Zantac] 150 mg PO BID #60 tab No Action RX: Carvedilol [Coreg] 25 mg PO BID RX: Gabapentin [Neurontin] 600 mg PO Q6HR RX: HYDROcodone/APAP 10-325MG [[place] 10-325] 1 tab PO BID RX: Multivitamin [Men's Multi-Vitamin] 1 each PO DAILY RX: Calcium Carbonate [Calcium] 600 mg PO BID #60 tablet RX: Vitamin A 8,000 unit PO DAILY #30 capsule RX: Glucosamine/Chondr Lopez A Sod [Osteo Bi-Flex Caplet] 1 each PO BID RX: Zinc 1 tab PO DAILY RX: DULoxetine HCL [Cymbalta] 60 mg PO QAM RX: Ergocalciferol [Vitamin D2 (DRISDOL)] 50,000 unit PO WE RX: Allopurinol [Zyloprim] 100 mg PO DAILY RX: Ginseng 100 mg PO DAILY Ascorbic Acid [Vitamin C] 1,000 mg PO DAILY Thiamine [Vitamin B-1] 50 mg PO DAILY Cyanocobalamin (Vitamin B-12) [Vitamin B12] 2,500 mcg PO DAILY Discharge Medication List RX: Carvedilol [Coreg] 25 mg PO BID 10/23/14 [History] RX: Gabapentin [Neurontin] 600 mg PO Q6HR 06/03/15 [History] RX: HYDROcodone/APAP 10-325MG [[place] 10-325] 1 tab PO BID 09/28/15 [History] RX: Calcium Carbonate [Calcium] 600 mg PO BID #60 tablet 10/14/15 [Rx] RX: Multivitamin [Men's Multi-Vitamin] 1 each PO DAILY 10/14/15 [History] RX: Vitamin A 8,000 unit PO DAILY #30 capsule 10/14/15 [Rx] RX: Glucosamine/Chondr Lopez A Sod [Osteo Bi-Flex Caplet] 1 each PO BID 01/28/16 [ History] RX: Zinc 1 tab PO DAILY 12/16/16 [History] RX: DULoxetine HCL [Cymbalta] 60 mg PO QAM 06/14/17 [History] RX: Ergocalciferol [Vitamin D2 (DRISDOL)] 50,000 unit PO WE 08/10/17 [History] Ascorbic Acid [Vitamin C] 1,000 mg PO DAILY 06/06/18 [History] Cyanocobalamin (Vitamin B-12) [Vitamin B12] 2,500 mcg PO DAILY 06/06/18 [History ] RX: Allopurinol [Zyloprim] 100 mg PO DAILY 06/06/18 [History] RX: Ginseng 100 mg PO DAILY 06/06/18 [History] Thiamine [Vitamin B-1] 50 mg PO DAILY 06/06/18 [History] Ranitidine HCl [Zantac] 150 mg PO BID #60 tab 08/17/18 [Rx] Follow up Appointment(s)/Referral(s): [facility] [[facility]-STAFF] - 09/05/18 Patient Instructions/Handouts: Esophageal Dilation (IP) Activity/Diet/Wound Care/Special Instructions: May have soft food diet today Discharge Disposition: HOME SELF-CARE
[2018-08-17 09:43] VITALS: BP 174/95; PULSE 54
== END 2018-08-17 10:07 | disposition home or self-care (01) ==
LOC: ORWHC2ENDO 08:07
PROVIDERS: ATTEND Surgery Plastic and Reconstructive Surgery
DX: K29.50 Unspecified chronic gastritis without bleeding (principal); K31.89 Other diseases of stomach and duodenum; K22.10 Ulcer of esophagus without bleeding; K21.0 Gastro-esophageal reflux disease with esophagitis; Z98.84 Bariatric surgery status; Z98.0 Intestinal bypass and anastomosis status; I10 Essential (primary) hypertension; K76.9 Liver disease, unspecified; M19.90 Unspecified osteoarthritis, unspecified site; N42.9 Disorder of prostate, unspecified; N28.9 Disorder of kidney and ureter, unspecified; G43.909 Migraine, unspecified, not intractable, without status migrainosus; G62.9 Polyneuropathy, unspecified; D64.9 Anemia, unspecified; F32.9 Major depressive disorder, single episode, unspecified; F17.200 Nicotine dependence, unspecified, uncomplicated; Z80.0 Family history of malignant neoplasm of digestive organs; Z79.891 Long term (current) use of opiate analgesic; Z79.899 Other long term (current) drug therapy; Z96.652 Presence of left artificial knee joint; Z86.73 Personal history of transient ischemic attack (TIA), and cerebral infarction without residual deficits
CPT/HCPCS: 88305; 43239; 43245; J2001; J2704

== ENCOUNTER 2018-10-01 10:33 | Emergency (ER) | payer MEDICARE, OTHER ==
--- NOTE | 2018-10-01 11:05 | XR ---
EXAMINATION TYPE: XR chest 2V DATE OF EXAM: 10/01/2018 COMPARISON: 05/21/2015, CT chest 10/09/2017 INDICATION: Pain cough congestion for 2 days TECHNIQUE: Frontal and lateral views of the chest are obtained. FINDINGS: The heart size is normal. The pulmonary vasculature is normal. The lungs are clear. There appears to be some tortuosity of the aorta. There is some fullness of the right suprahilar region. This appears to be related to vascular structures on the CT examination Ryan mosley 2018. IMPRESSION: 1. No acute pulmonary process.
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
[2018-10-01 12:16] LABS: Appearance,Urine Clear (Clear); Basophils % (A) 0 %; Bilirubin,Urine Negative (Negative); Blood,Urine Negative (Negative); Color,Urine Yellow; Eosinophils # (A) 0.2 k/uL (0-0.7); Eosinophils % (A) 3 %; Glucose,Urine (UA) Negative (Negative); HCT 38.3 % (39.0-53.0); HGB 12.7 gm/dL (13.0-17.5); Ketones,Urine Negative (Negative); Leukocyte Esterase,Urine Negative (Negative); Lymphocytes # (A) 0.5 k/uL (1.0-4.8); Lymphocytes % (A) 10 %; MCH 31.8 pg (25.0-35.0); MCHC 33.2 g/dL (31.0-37.0); MCV 95.6 fL (80.0-100.0); Mean Platelet Volume 7.9; Monocytes # (A) 0.5 k/uL (0-1.0); Monocytes % (A) 10 %; Neutrophils # (A) 3.5 k/uL (1.3-7.7); Neutrophils % (A) 74 %; Nitrite,Urine Negative (Negative); PH, Urine 5.5 (5.0-8.0); Platelet Count 112 k/uL (150-450); Protein,Urine Trace (Negative); RDW 14.4 % (11.5-15.5); Urobilinogen,Urine <2.0 mg/dL (<2.0); WBC 4.8 k/uL (3.8-10.6)
[2018-10-01 12:33] LABS: Albumin 3.4 g/dL (3.5-5.0); Calcium 8.9 mg/dL (8.4-10.2); Potassium 5.2 mmol/L (3.5-5.1); Total Bilirubin 0.6 mg/dL (0.2-1.3); Total Protein 6.1 g/dL (6.3-8.2)
[2018-10-01 13:49] VITALS: BP 167/105; PULSE 64; RESP 18; TEMP 98.6
== END 2018-10-01 13:49 | disposition home or self-care (01) ==
LOC: EC 10:33
DX: J06.9 Acute upper respiratory infection, unspecified (principal); I10 Essential (primary) hypertension; M19.90 Unspecified osteoarthritis, unspecified site; G62.9 Polyneuropathy, unspecified; F32.9 Major depressive disorder, single episode, unspecified; F17.200 Nicotine dependence, unspecified, uncomplicated; Z86.73 Personal history of transient ischemic attack (TIA), and cerebral infarction without residual deficits; Z96.652 Presence of left artificial knee joint; Z79.891 Long term (current) use of opiate analgesic; Z79.899 Other long term (current) drug therapy
CPT/HCPCS: 36415; 71046; 80053; 81003; 85025; 87040; 87502; 99283

== ENCOUNTER 2018-12-12 18:03 | Emergency (ER) | payer MEDICARE, OTHER ==
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
--- NOTE | 2018-12-12 19:33 | XR ---
EXAMINATION TYPE: XR chest 2V DATE OF EXAM: 12/12/2018 COMPARISON: 10/01/2018 HISTORY: Cough and congestion TECHNIQUE: Frontal and lateral views of the chest are obtained. FINDINGS: There is no heart failure. Heart size is normal. There is a 2 cm area of airspace consolidation in the right middle lobe. There is increased density i n the medial right upper lobe unchanged compared to last exam. This could relate to tortuous great ve ssels. The left lung is clear. There is no heart failure. Heart is slightly enlarged. Thoracic aorta is atheromatous. IMPRESSION: Right upper lobe paramediastinal density unchanged and probably relates to tortuous or a neurysmal great vessels. This is also present on old chest x-ray of 05/21/2015 and appears not signifi cantly different. There is new right middle lobe airspace pneumonia compared to last exam.
[2018-12-12 19:42] LABS: Basophils % (A) 0 %; Eosinophils # (A) 0.1 k/uL (0-0.7); Eosinophils % (A) 1 %; HCT 33.4 % (39.0-53.0); HGB 10.4 gm/dL (13.0-17.5); Lymphocytes # (A) 0.8 k/uL (1.0-4.8); Lymphocytes % (A) 6 %; MCH 29.8 pg (25.0-35.0); MCHC 31.2 g/dL (31.0-37.0); MCV 95.3 fL (80.0-100.0); Mean Platelet Volume 7.9; Monocytes # (A) 0.7 k/uL (0-1.0); Monocytes % (A) 5 %; Neutrophils # (A) 11.5 k/uL (1.3-7.7); Neutrophils % (A) 87 %; Platelet Count 135 k/uL (150-450); RDW 13.5 % (11.5-15.5); WBC 13.3 k/uL (3.8-10.6)
[2018-12-12 19:55] LABS: Alcohol <10 mg/dL; Anion Gap 4 mmol/L; Blood Urea Nitrogen 31 mg/dL (9-20); Calcium 8.3 mg/dL (8.4-10.2); Carbon Dioxide 26 mmol/L (22-30); Chloride 107 mmol/L (98-107); Glucose 68 mg/dL (74-99); Potassium 4.4 mmol/L (3.5-5.1); Sodium 137 mmol/L (137-145)
[2018-12-12] MEDS ORDERED: AZITHROMYCIN 500 MG TAB PO STA (20:19)
[2018-12-12 21:03] VITALS: BP 138/83; PULSE 73; RESP 18; TEMP 98
== END 2018-12-12 21:27 | disposition home or self-care (01) ==
LOC: EC 18:03
DX: J18.9 Pneumonia, unspecified organism (principal); I10 Essential (primary) hypertension; M19.90 Unspecified osteoarthritis, unspecified site; G62.9 Polyneuropathy, unspecified; F32.9 Major depressive disorder, single episode, unspecified; F17.200 Nicotine dependence, unspecified, uncomplicated; Z86.73 Personal history of transient ischemic attack (TIA), and cerebral infarction without residual deficits; Z79.891 Long term (current) use of opiate analgesic; Z79.899 Other long term (current) drug therapy; Z96.652 Presence of left artificial knee joint
CPT/HCPCS: 36415; 80048; 85025; 71046; 99283; G0480; 80320

== ENCOUNTER 2018-12-19 11:25 | Emergency (ER) | payer MEDICARE, OTHER ==
[2018-12-19 11:33] VITALS: PULSE 65
--- NOTE | 2018-12-19 12:13 | XR ---
EXAMINATION TYPE: XR chest 2V DATE OF EXAM: 12/19/2018 COMPARISON: 12/12/2018 HISTORY: Shortness of breath TECHNIQUE: Frontal and lateral views of the chest are obtained. FINDINGS: Scattered senescent parenchymal changes noted. Hyperinflation compatible with COPD. Persistent but improving right middle lobe infiltrate. Continued follow-up until resolution is advise d. Heart size is stable. Mediastinal structures are stable and grossly unremarkable. No evidence for hilar prominence. Degenerative changes dorsal spine. IMPRESSION: 1. Persistent but improving right middle lobe infiltrate. Continued follow-up until resolution is adv ised.
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
[2018-12-19 12:55] VITALS: BP 134/95; RESP 20; TEMP 98.1
== END 2018-12-19 12:50 | disposition home or self-care (01) ==
LOC: EC 11:25
DX: J18.9 Pneumonia, unspecified organism (principal); K21.9 Gastro-esophageal reflux disease without esophagitis; I10 Essential (primary) hypertension; G62.9 Polyneuropathy, unspecified; F32.9 Major depressive disorder, single episode, unspecified; F17.200 Nicotine dependence, unspecified, uncomplicated; M19.90 Unspecified osteoarthritis, unspecified site; Z79.899 Other long term (current) drug therapy; Z96.652 Presence of left artificial knee joint; Z98.84 Bariatric surgery status; Z86.73 Personal history of transient ischemic attack (TIA), and cerebral infarction without residual deficits
CPT/HCPCS: 71046; 99283

== ENCOUNTER → 2019-01-11 | Outpatient (CLI) | payer MEDICARE, OTHER ==
--- NOTE | 2019-01-11 08:47 | CT ---
EXAMINATION TYPE: CT chest wo con DATE OF EXAM: 01/11/2019 COMPARISON: 10/09/2017 HISTORY: Thoracic aortic aneurysm without rupture CT DLP: 328 mGycm. Automated Exposure Control for Dose Reduction was Utilized. TECHNIQUE: CT scan of the thorax is performed without IV contrast. FINDINGS: LUNGS: There is a new 2.2 x 2.6 cm left basilar pulmonary nodule The best seen on series 5 image 40 b ut also seen on axial series 4 image 48. The previously seen 2 to 3 mm pulmonary nodules have resolved in the interim and may have been inflam matory or infectious. There is increasing right middle lobe confluence from an increasing groundglass opacity and linear pl eural parenchymal scarring. There is no pleural effusion or pneumothorax seen. The tracheobronchial tree is patent. MEDIASTINUM: Lack of IV contrast is noted to limit evaluation for mediastinal and especially hilar ad enopathy. There are no definitive greater than 1 cm hilar or mediastinal lymph nodes. Again there i s mild aneurysmal the aortic arch posteriorly as it measures up to 4.4 cm such as on coronal image 61 . The ascending thoracic aorta is also mildly aneurysmal measuring 4.3 cm such as on series 5 image 3 6. Descending thoracic aorta is tortuous but within normal limits in size. No pericardial effusion is seen. Heart is mildly enlarged. OTHER: Postsurgical changes seen at the gastroesophageal junction. Images of the upper abdomen are li mited without contrast. IMPRESSION: 1. The previously seen multiple 2 to 3 mm pulmonary nodules have resolved in the interim, however the re is a new suspicious left basilar pulmonary nodule measuring up to 2.6 cm for which PET CT is recom mended. 2. Increasing interstitial opacity in the right middle lobe with areas of scarring and other groundgl ass areas. Consider atypical pneumonitis or inflammatory etiology. 3. Redemonstration of stable mild aneurysmal dilatation of the ascending thoracic aorta and posterior aortic arch.
== END | disposition home or self-care (01) ==
LOC: RADCTMAIN 07:10
PROVIDERS: ATTEND Internal Medicine
DX: J84.10 Pulmonary fibrosis, unspecified (principal); R91.1 Solitary pulmonary nodule; I71.2 Thoracic aortic aneurysm, without rupture
CPT/HCPCS: 71250

== ENCOUNTER → 2019-01-21 | Outpatient (CLI) | payer MEDICARE, OTHER ==
[2019-01-21 13:14] LABS: Basophils % (A) 0 %; Eosinophils # (A) 0.3 k/uL (0-0.7); Eosinophils % (A) 7 %; HCT 34.6 % (39.0-53.0); Lymphocytes # (A) 0.9 k/uL (1.0-4.8); Lymphocytes % (A) 19 %; MCH 30.3 pg (25.0-35.0); MCHC 31.8 g/dL (31.0-37.0); MCV 95.4 fL (80.0-100.0); Mean Platelet Volume 8.5; Monocytes # (A) 0.3 k/uL (0-1.0); Monocytes % (A) 6 %; Neutrophils # (A) 3.1 k/uL (1.3-7.7); Neutrophils % (A) 66 %; Platelet Count 131 k/uL (150-450); RBC 3.62 m/uL (4.30-5.90); RDW 14.3 % (11.5-15.5); WBC 4.7 k/uL (3.8-10.6)
[2019-01-21 19:33] LABS: Iron Saturation 28.24 (15.00-50.00)
[2019-01-21 19:39] LABS: Anion Gap 4.2 mmol/L (4.00-12.00); Calcium 8.6 mg/dL (8.7-10.3); Carbon Dioxide 20.8 mmol/L (21.6-31.8); Magnesium 2.1 mg/dL (1.5-2.4); Phosphorus 4.8 mg/dL (2.4-5.1); Potassium 5.4 mmol/L (3.5-5.5); Uric Acid 4.5 mg/dL (3.7-8.7)
[2019-01-21 19:42] LABS: Vitamin D 25 Hydroxy 38.2 ng/mL (30.0-100.0)
[2019-01-21 22:29] LABS: Parathyroid Hormone Intact 172.9 pg/mL (14.0-72.0)
== END | disposition home or self-care (01) ==
LOC: LABWHC1 11:45
PROVIDERS: ATTEND Internal Medicine Nephrology
DX: D50.9 Iron deficiency anemia, unspecified (principal); E55.9 Vitamin D deficiency, unspecified; N18.3 Chronic kidney disease, stage 3 (moderate); N25.81 Secondary hyperparathyroidism of renal origin; M10.9 Gout, unspecified; N39.0 Urinary tract infection, site not specified
CPT/HCPCS: 36415; 80048; 82306; 82728; 83540; 83550; 83735; 83970; 84100; 84550; 85025

== ENCOUNTER → 2019-02-18 | Outpatient (CLI) | payer MEDICARE, OTHER ==
--- NOTE | 2019-02-18 08:47 | US ---
EXAMINATION TYPE: US kidneys/renal and bladder DATE OF EXAM: 02/18/2019 COMPARISON: US, CT CLINICAL HISTORY: N18.3 Chronic kidney disease, stage 3 (moderate). EXAM MEASUREMENTS: Right Kidney: 8.5 x 4.8 x 4.0 cm Left Kidney: 7.1 x 5.5 x 4.1 cm Post Void Residual Volume: 16.9 mL US exam is technically limited due to bowel gas and rib interference Right Kidney: No hydronephrosis or masses seen; small for size Left Kidney: No hydronephrosis or masses seen, small for size Bladder: Incompletely distended and therefore limited in assessment Bilateral Jets seen: not seen Normal Post Void Residual: yes IMPRESSION: Somewhat diminutive kidneys bilaterally with preservation of renal cortex and no evidence of hydronep hrosis or nephrolithiasis
== END | disposition home or self-care (01) ==
LOC: RADUSWWP 07:25
PROVIDERS: ATTEND Internal Medicine Nephrology
DX: N18.3 Chronic kidney disease, stage 3 (moderate) (principal)
CPT/HCPCS: 76770

== ENCOUNTER → 2019-02-23 | Outpatient (CLI) | payer MEDICARE, OTHER ==
--- NOTE | 2019-02-26 15:44 | PE ---
Nuclear medicine PET/CT HISTORY: Solitary pulmonary nodule, initial Patient received 8.8 mCi F-18 intravenously in delayed scanning was performed from the skull base to the mid thighs. Localization and attenuation correction CT scan was performed. Correlation CT chest 01/11/2019 Neck and chest: There is no cervical, supraclavicular, mediastinal, axillary, or hilar adenopathy. Th e heart is markedly enlarged. Ascending aorta is 4.4 cm, proximal descending aorta 4.3 cm, aneurysmal . Pulmonary artery is also dilated, correlate for pulmonary artery hypertension. There are coronary a rtery calcifications. The soft tissue density present at the posterior left heart seen on CT shows so me possible associated hypermetabolic uptake, SUV 3.9 this may be somewhat difficult to differentiate as it is immediately adjacent to the hypermetabolic heart activity. There is no pleural or pericardi al effusion. There are areas of scarring within the lungs. ABDOMEN: Surgical clips present in the gastroesophageal junction level. No retroperitoneal adenopathy . No evident lung mass. No suspicious hypermetabolic uptake. Osseous structures: Postop changes are noted to the left hemipelvis. Degenerative disc change present at the lower lumbar spine with bilateral spondylolysis at L5. No suspicious hypermetabolic uptake. IMPRESSION: Abnormal soft tissue density at the left lung base shows possible hypermetabolic uptake. Aortic aneurysm. Correlate for pulmonary artery hypertension. Postop changes. Follow-up recommended.
== END | disposition home or self-care (01) ==
LOC: RADPETMAIN 11:55
PROVIDERS: ATTEND Internal Medicine
DX: J98.4 Other disorders of lung (principal); I71.2 Thoracic aortic aneurysm, without rupture; Z98.890 Other specified postprocedural states
CPT/HCPCS: 78815; A9552

== ENCOUNTER 2019-03-27 09:15 | Day surgery (SDC) | payer MEDICARE, OTHER ==
[2019-03-26 13:49] VITALS: BMI 22.4
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
[2019-03-27 10:17] VITALS: RESP 16; TEMP 97.5
[2019-03-27] MEDS ORDERED: LACTATED RINGERS 1,000 ML IV ONE (10:23)
[2019-03-27] MEDS ORDERED: PROPOFOL 10 MG/ML 20 ML VIAL IV ONE (11:41)
[2019-03-27] MEDS ORDERED: LIDOCAINE 1% INJ 10MG/ML (20 ML MDV) ONE (11:41)
--- NOTE | 2019-03-27 12:00 | P.PCN ---
Date of Procedure: 03/27/19 Description of Procedure: PREOPERATIVE DIAGNOSES: 1. Epigastric abdominal pain. 2. Nausea and vomiting. 3. History of gastric bypass. 4. History of gastric ulcers. 5. Iron deficiency anemia POSTOPERATIVE DIAGNOSES: 1. Epigastric abdominal pain. 2. Nausea and vomiting. 3. History of gastric bypass. 4. History of gastric ulcers. 5. Iron deficiency anemia PROCEDURE PERFORMED: Esophagogastrojejunoscopy. SURGEON: Valery Wills MD ANESTHESIA: MAC. INDICATIONS: The patient is a 68-year-old male with prior history of Dorian-en-Y gastric bypass. He reports history of gastrointestinal bleed and anemia. With his history of Dorian-en-Y gastric bypass, upper endoscopy was offered for further evaluation and management. DESCRIPTION: Patient was brought to the endoscopy suite and laid in the left lateral decubitus position. After adequate IV sedation, a bite block was placed. An Olympus gastroscope was passed along the posterior oropharynx down to the distal esophagus where the squamocolumnar junction was found at approximately 40 cm from the incisors. The scope was advanced 60 cm from the incisors. No evidence of foreign body was found. No evidence of active gastrojejunal ulcerations were encountered. The GI tract was desufflated. The patient tolerated the procedure well. FINDINGS: 1. No acute gastrojejunal ulceration. 2. No foreign body found along the anastomosis. PLAN: 1. Recommend upper endoscopy as needed. Plan - Discharge Summary Discharge Rx Participant: Yes New Discharge Prescriptions: No Action Carvedilol [Coreg] 25 mg PO BID Calcium Carbonate [Calcium] 600 mg PO BID #60 tablet Vitamin A 8,000 unit PO DAILY #30 capsule Glucosamine/Chondr Lopez A Sod [Osteo Bi-Flex Caplet] 1 each PO BID Zinc 50 mg PO DAILY DULoxetine HCL [Cymbalta] 60 mg PO QAM Allopurinol [Zyloprim] 100 mg PO DAILY Ginseng 100 mg PO DAILY Ascorbic Acid [Vitamin C] 1,000 mg PO DAILY Thiamine [Vitamin B-1] 50 mg PO DAILY Cyanocobalamin (Vitamin B-12) [Vitamin B12] 2,500 mcg PO DAILY Gabapentin [Neurontin] 300 mg PO TID Magnesium Oxide 400 mg PO BID Ergocalciferol [Vitamin D2] 50,000 unit PO Q14D Discharge Medication List Carvedilol [Coreg] 25 mg PO BID 10/23/14 [History] Calcium Carbonate [Calcium] 600 mg PO BID #60 tablet 10/14/15 [Rx] Vitamin A 8,000 unit PO DAILY #30 capsule 10/14/15 [Rx] Glucosamine/Chondr Lopez A Sod [Osteo Bi-Flex Caplet] 1 each PO BID 01/28/16 [History] Zinc 50 mg PO DAILY 12/16/16 [History] DULoxetine HCL [Cymbalta] 60 mg PO QAM 06/14/17 [History] Allopurinol [Zyloprim] 100 mg PO DAILY 06/06/18 [History] Ascorbic Acid [Vitamin C] 1,000 mg PO DAILY 06/06/18 [History] Cyanocobalamin (Vitamin B-12) [Vitamin B12] 2,500 mcg PO DAILY 06/06/18 [History] Ginseng 100 mg PO DAILY 06/06/18 [History] Thiamine [Vitamin B-1] 50 mg PO DAILY 06/06/18 [History] Gabapentin [Neurontin] 300 mg PO TID 12/19/18 [History] Magnesium Oxide 400 mg PO BID 12/19/18 [History] Ergocalciferol [Vitamin D2] 50,000 unit PO Q14D 03/26/19 [History] Follow up Appointment(s)/Referral(s): Valery Wills MD [STAFF PHYSICIAN] - 04/16/19 Patient Instructions/Handouts: Upper Endoscopy (DC) Discharge Disposition: HOME SELF-CARE
[2019-03-27 12:16] VITALS: BP 156/93; PULSE 57
[2019-03-27 12:46] LABS: Basophils % (A) 0 %; Eosinophils # (A) 0.2 k/uL (0-0.7); Eosinophils % (A) 4 %; HCT 36.8 % (39.0-53.0); HGB 11.2 gm/dL (13.0-17.5); Lymphocytes # (A) 0.9 k/uL (1.0-4.8); Lymphocytes % (A) 17 %; MCH 28.6 pg (25.0-35.0); MCHC 30.6 g/dL (31.0-37.0); MCV 93.6 fL (80.0-100.0); Mean Platelet Volume 7.9; Monocytes # (A) 0.3 k/uL (0-1.0); Monocytes % (A) 5 %; Neutrophils # (A) 3.5 k/uL (1.3-7.7); Neutrophils % (A) 71 %; Platelet Count 168 k/uL (150-450); RBC 3.93 m/uL (4.30-5.90); RDW 14.6 % (11.5-15.5)
[2019-03-27 20:00] LABS: Iron Saturation 17.84 (15.00-50.00)
== END 2019-03-27 12:42 | disposition home or self-care (01) ==
LOC: ORWHC2ENDO 09:15
PROVIDERS: ATTEND Surgery Plastic and Reconstructive Surgery
DX: R10.13 Epigastric pain (principal); R11.2 Nausea with vomiting, unspecified; D50.9 Iron deficiency anemia, unspecified; Z98.84 Bariatric surgery status; Z87.11 Personal history of peptic ulcer disease; K21.9 Gastro-esophageal reflux disease without esophagitis; Z80.0 Family history of malignant neoplasm of digestive organs; I10 Essential (primary) hypertension; G40.909 Epilepsy, unspecified, not intractable, without status epilepticus; M19.90 Unspecified osteoarthritis, unspecified site; G43.909 Migraine, unspecified, not intractable, without status migrainosus; F32.9 Major depressive disorder, single episode, unspecified; G62.9 Polyneuropathy, unspecified; G47.33 Obstructive sleep apnea (adult) (pediatric); Z99.89 Dependence on other enabling machines and devices; Z86.73 Personal history of transient ischemic attack (TIA), and cerebral infarction without residual deficits; F17.210 Nicotine dependence, cigarettes, uncomplicated; Z79.899 Other long term (current) drug therapy; Z96.652 Presence of left artificial knee joint; Z97.2 Presence of dental prosthetic device (complete) (partial)
CPT/HCPCS: 43235; 82728; 83540; 83550; 85025; J2001; J2704

== ENCOUNTER 2019-04-24 16:37 | Inpatient (IN) | payer MEDICARE, OTHER ==
[2019-04-24] MEDS ORDERED: NITROGLYCERIN OINT 1 INCH/GM PACKET TOPICAL STA (17:00)
[2019-04-24 17:18] LABS: Basophils % (A) 0 %; Eosinophils # (A) 0.2 k/uL (0-0.7); Eosinophils % (A) 3 %; HCT 40.3 % (39.0-53.0); HGB 13.1 gm/dL (13.0-17.5); Lymphocytes # (A) 1.1 k/uL (1.0-4.8); Lymphocytes % (A) 15 %; MCH 29.1 pg (25.0-35.0); MCHC 32.4 g/dL (31.0-37.0); MCV 89.7 fL (80.0-100.0); Mean Platelet Volume 8.2; Monocytes # (A) 0.5 k/uL (0-1.0); Monocytes % (A) 7 %; Neutrophils # (A) 5.7 k/uL (1.3-7.7); Neutrophils % (A) 74 %; Platelet Count 197 k/uL (150-450); RDW 15.5 % (11.5-15.5); WBC 7.8 k/uL (3.8-10.6)
[2019-04-24 17:21] LABS: Prothrombin Time 10.9 sec (9.0-12.0)
[2019-04-24] MEDS ORDERED: ACETAMINOPHEN TAB 500 MG TAB PO STA (17:22)
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
[2019-04-24 17:32] LABS: Bilirubin,Unconjugated 0.5 mg/dL (0.0-1.1); Potassium 5.1 mmol/L (3.5-5.1); Total Bilirubin 0.5 mg/dL (0.2-1.3); Total Protein 6.9 g/dL (6.3-8.2)
--- NOTE | 2019-04-24 17:54 | XR ---
EXAMINATION TYPE: XR chest 2V DATE OF EXAM: 04/24/2019 COMPARISON: Prior chest x-ray 12/19/2018 HISTORY: Cough, congestion and fever TECHNIQUE: Frontal and lateral views of the chest are obtained. FINDINGS: There is no focal air space opacity, pleural effusion, or pneumothorax seen. The cardiac silhouette size is stable and enlarged The osseous structures are intact. The aorta is dense and tort uous, and aneurysmal. Prominent lung volumes suggest underlying COPD. IMPRESSION: No acute cardiopulmonary process. Cardiomegaly. Aortic aneurysm.
[2019-04-24] MEDS ORDERED: cloNIDine HCL 0.1 MG TAB PO STA (18:41)
--- NOTE | 2019-04-24 19:19 | CT ---
EXAMINATION TYPE: CT brain wo con DATE OF EXAM: 04/24/2019 COMPARISON: Prior CT brain dated 07/08/2016 HISTORY: weakness, chills CT DLP: 1182.2 mGycm Automated exposure control for dose reduction was used. Helical acquisition through the brain FINDINGS: Periventricular white matter shows patchy low attenuation as on prior exam. There is no evident hemor rhage or hydrocephalus. Calvarium is intact. Orbits show stable appearance. There is postop change to the inferior right orbital wall as on prior. Inflammatory change present within the maxillary sinuse s, there may be underlying polyp disease. IMPRESSION: NO ACUTE ABNORMALITY.
--- NOTE | 2019-04-24 19:44 | CT ---
EXAMINATION TYPE: CT ChestAbdPelvis wo con DATE OF EXAM: 04/24/2019 COMPARISON: Nuclear medicine PET/CT 02/23/2019 HISTORY: weakness, chills, hx of pneumonia CT DLP: 604.9 mGycm. Automated Exposure Control for Dose Reduction was Utilized. TECHNIQUE: CT scan of the thorax, abdomen and pelvis is performed without IV contrast. FINDINGS: Lack of intravenous contrast compromises the exam. LUNGS: The lungs show subpleural nodularity in the left which has progressed in the interval. There is no pleural effusion or pneumothorax seen. The tracheobronchial tree is patent. Some basilar scar ring or possibly atelectasis noted MEDIASTINUM: There are no greater than 1 cm hilar or mediastinal lymph nodes. No pericardial effusi on is seen. The heart is enlarged. Pulmonary artery is prominent. OTHER: Aortic aneurysm is present, proximal descending aorta measures 4.7 cm, ascending aorta 4.7 cm. LIVER/GB: No significant abnormality is appreciated. PANCREAS: No significant abnormality is seen. SPLEEN: No significant abnormality is seen. ADRENALS: No significant abnormality is seen. KIDNEYS: No significant abnormality is seen. BOWEL: There are some small bowel loops with wall thickening, consider enteritis. Postop changes are noted to the gastroesophageal junction level as on prior exam. There may be small hiatal hernia or di lated distal esophagus. GENITAL ORGANS: No gross abnormality seen. LYMPH NODES: No greater than 1cm abdominal or pelvic lymph nodes are appreciated. OSSEOUS STRUCTURES: Postop changes are noted to the left hip and pelvis. Bilateral spondylolysis at L 5, there are degenerative disc changes in the visualized spine OTHER: No significant additional abnormality is seen. IMPRESSION: Interval progression of pleural nodules may be due to metastatic disease. Aortic aneurysm . Cardiomegaly. Noncontrast exam. Postop changes. Correlate for possible enteritis.
[2019-04-24 21:29] LABS: Appearance,Urine Clear (Clear); Bilirubin,Urine Negative (Negative); Blood,Urine Negative (Negative); Color,Urine Yellow; Glucose,Urine (UA) Negative (Negative); Ketones,Urine Negative (Negative); Leukocyte Esterase,Urine Negative (Negative); Mucus,Urine Rare /hpf; Nitrite,Urine Negative (Negative); PH, Urine 5.5 (5.0-8.0); Protein,Urine 1+ (Negative); RBC,Urine 1 /hpf (0-5); Specific Gravity,Urine 1.015 (1.001-1.035); Urobilinogen,Urine <2.0 mg/dL (<2.0)
[2019-04-24 21:48] LABS: Amphetamine Screen,Urine Not Detected (NotDetected); Barbiturate Screen,Urine Not Detected (NotDetected); Benzodiazepines Screen,Urine Not Detected (NotDetected); Cocaine Screen,Urine Not Detected (NotDetected); Methadone Screen, Urine Not Detected (NotDetected); Opiate Screen,Urine Detected (NotDetected); Oxycodone Screen, Urine Not Detected (NotDetected); Phencyclidine Screen,Urine Not Detected (NotDetected); Tricyclic Antidepressant,Urine Not Detected (NotDetected); Urn Cannabinoid Scrn Not Detected (NotDetected)
[2019-04-24] MEDS ORDERED: NALOXONE 0.4 MG/ML 1 ML VIAL IV PRN (21:57)
[2019-04-24] MEDS ORDERED: ACETAMINOPHEN TAB 325 MG TAB PO PRN (21:57)
[2019-04-25] MEDS: GABAPENTIN 300 MG CAP PO SCH ×4 (00:51→20:46)
[2019-04-25] MEDS ORDERED: cloNIDine HCL 0.1 MG TAB PO PRN (01:04)
[2019-04-25] MEDS: HYDROcodone/APAP 10-325MG 1 EACH TAB PO SCH ×3 (05:53→20:46)
[2019-04-25 06:14] LABS: Basophils % (A) 0 %; Eosinophils # (A) 0.2 k/uL (0-0.7); Eosinophils % (A) 3 %; HCT 37.2 % (39.0-53.0); HGB 11.8 gm/dL (13.0-17.5); Lymphocytes # (A) 0.8 k/uL (1.0-4.8); Lymphocytes % (A) 13 %; MCHC 31.6 g/dL (31.0-37.0); MCV 91.8 fL (80.0-100.0); Mean Platelet Volume 7.8; Monocytes # (A) 0.4 k/uL (0-1.0); Monocytes % (A) 7 %; Neutrophils # (A) 4.4 k/uL (1.3-7.7); Neutrophils % (A) 74 %; Platelet Count 147 k/uL (150-450); RBC 4.05 m/uL (4.30-5.90); RDW 14.2 % (11.5-15.5); WBC 5.9 k/uL (3.8-10.6)
[2019-04-25 07:37] LABS: Calcium 8.2 mg/dL (8.4-10.2); Potassium 4.7 mmol/L (3.5-5.1)
[2019-04-25] MEDS ORDERED: NON-FORMULARY DRUG (Glucosamine/Chondr Su A Sod [Osteo Bi-Flex Caplet] 1 TAB) PO SCH (09:00)
[2019-04-25] MEDS ORDERED: CALCITRIOL 0.25 MCG CAP PO SCH (09:00)
[2019-04-25] MEDS ORDERED: GINSENG 100 MG PO SCH (09:00)
[2019-04-25] MEDS: ALLOPURINOL 100 MG TAB PO SCH (09:34)
[2019-04-25] MEDS: CARVEDILOL 12.5 MG TAB PO SCH ×2 (09:35→17:27)
[2019-04-25] MEDS: ASCORBIC ACID 500 MG TAB PO SCH (09:35)
[2019-04-25] MEDS: MAGNESIUM OXIDE 400 MG TAB PO SCH ×2 (09:35→20:47)
[2019-04-25] MEDS: DULoxetine HCL 60 MG CAPSULE.DR PO SCH (09:35)
--- NOTE | 2019-04-25 10:40 | CONS ---
CONSULTATION CHIEF COMPLAINT: Chest pain. Kevin is a 68-year-old gentleman with history of hypertension and chronic pain who presented to hospital complaining of cough, chills, some dizziness and he also complained of some chest tightness. Due to this, he was admitted to hospital and Cardiology has been consulted. The chest discomfort is precordial, mild intensity, nonradiating, without clear-cut relieving or exacerbating factors. When I first arrived on the floor he wanted to be fed and other than that his chest pain has resolved. EKG shows sinus rhythm with left bundle branch block. LABS: Show a hemoglobin of 11.8, potassium is 4.7, BUN and creatinine are elevated at 27 and 2.3. He has had elevated creatinine on previous admissions, too. His troponin was 0.03, 0.03 and 0.02 without definite pattern to it. Patient did not have any recent echo or stress test or anything like that. PAST MEDICAL HISTORY: Significant for hypertension and chronic pain. MEDICATIONS: Include Rocaltrol, Coreg, Catapres, Cymbalta, Neurontin, Waldo, vitamin B1. Allergies are as charted. FAMILY HISTORY: Negative for premature coronary artery disease. SOCIAL HISTORY: Denies current smoking, EtOH abuse, or drug abuse. REVIEW OF SYSTEMS: A 09/12 review of systems has been performed and pertinent are as documented. PHYSICAL EXAM: Patient is comfortable at rest. Afebrile. Heart rate is 77, blood pressure varies between 148 to 193/117, O2 sat is 94% on room air. There is no jugular venous distention. Carotid upstroke is diminished. There is no bruit. Chest exam reveals good air entry bilaterally. Heart exam reveals first and second heart sounds. Abdomen is soft. Exam of extremities did not reveal edema. Peripheral pulses are felt. LABS: As described above. EKG shows left bundle branch block. ASSESSMENT: 1. Precordial chest pain. 2. Chronic renal failure. 3. Fever, chills. PLAN: His chest discomfort is atypical, probably noncardiac. Rest of his issues are going to be addressed by the primary care physician. We can consider an outpatient stress test on him. I will obtain a 2D echo on this admission. MMODL / IJN: [id number] /
[2019-04-25] MEDS ORDERED: hydrALAZINE HCL 20 MG/ML 1 ML VIAL IVP PRN (12:07)
[2019-04-25] MEDS: ZINC SULFATE 220 MG CAP PO SCH (12:42)
[2019-04-25] MEDS: THIAMINE 100 MG TAB PO SCH (12:43)
[2019-04-25] MEDS: amLODIPine 5 MG TAB PO SCH (12:43)
[2019-04-25] MEDS: VITAMIN A 10,000 UNIT CAPSULE PO SCH (12:43)
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
[2019-04-26] MEDS: HYDROcodone/APAP 10-325MG 1 EACH TAB PO SCH ×4 (01:22→20:58)
[2019-04-26] MEDS: CARVEDILOL 12.5 MG TAB PO SCH ×2 (06:48→15:58)
[2019-04-26] MEDS: ENOXAPARIN 40 MG/0.4 ML SYRINGE SQ SCH (08:02)
[2019-04-26] MEDS: THIAMINE 100 MG TAB PO SCH (08:03)
[2019-04-26] MEDS: amLODIPine 5 MG TAB PO SCH (08:03)
[2019-04-26] MEDS: GABAPENTIN 300 MG CAP PO SCH ×3 (08:03→20:57)
[2019-04-26] MEDS: ALLOPURINOL 100 MG TAB PO SCH (08:03)
[2019-04-26] MEDS: ASCORBIC ACID 500 MG TAB PO SCH (08:03)
[2019-04-26] MEDS: DULoxetine HCL 60 MG CAPSULE.DR PO SCH (08:03)
[2019-04-26] MEDS: FAMOTIDINE 20 MG TAB PO SCH (08:03)
[2019-04-26] MEDS: ZINC SULFATE 220 MG CAP PO SCH (08:03)
[2019-04-26] MEDS: MAGNESIUM OXIDE 400 MG TAB PO SCH ×2 (08:03→20:57)
[2019-04-26] MEDS: VITAMIN A 10,000 UNIT CAPSULE PO SCH (08:04)
--- NOTE | 2019-04-26 10:39 | ECHOF ---
Referral Reason:chest pain MEASUREMENTS -------- HEIGHT: 185.4 cm WEIGHT: 80.7 kg BP: 157/98 IVSd: 1.7 cm (0.6 - 1.1) LVIDd: 4.0 cm (3.9 - 5.3) LVPWd: 2.3 cm (0.6 - 1.1) IVSs: 2.1 cm LVIDs: 3.5 cm LVPWs: 2.2 cm LAESV Index (A-L): 24.86 ml/m Ao Diam: 3.9 cm (2.0 - 3.7) AV Cusp: 2.5 cm (1.5 - 2.6) LA Diam: 3.9 cm (2.7 - 3.8) MV EXCURSION: 10.542 mm (> 18.000) MV EF SLOPE: 51 mm/s (70 - 150) EPSS: 5.4 cm AR PHT: 389 ms RAP: 5.00 mmHg RVSP: 25.87 mmHg FINDINGS -------- Sinus rhythm. This was a technically adequate study. The left ventricular size is normal. There is severe concentric left ventricular hypertrophy. The re is moderate global hypokinesis of LV . Overall left ventricular systolic function is severely im paired with, an EF between 25 - 30 %. Mitral Doppler inflow pattern suggests diastolic filling abno rmality {E/E'}. The right ventricle is normal in size. Normal LA size by volume 22+/-6 ml/m2. The right atrial size is normal. Interatrial and interventricular septum intact. There is mild aortic valve sclerosis. There is no evidence of aortic regurgitation. There is no e vidence of aortic stenosis. Mild mitral annular calcification present. There is trace mitral regurgitation. Mild tricuspid regurgitation present. Right ventricular systolic pressure is normal at < 35 mmHg. There is no evidence of pulmonary hypertension. The pulmonic valve was not well visualized. The aortic root size is normal. IVC Not well visulized. There is a trivial pericardial effusion present. CONCLUSIONS -------- 1. Sinus rhythm. 2. This was a technically adequate study. 3. The left ventricular size is normal. 4. There is severe concentric left ventricular hypertrophy. 5. There is moderate global hypokinesis of LV . 6. Overall left ventricular systolic function is severely impaired with, an EF between 25 - 30 %. 7. Mitral Doppler inflow pattern suggest diastolic filling abnormality {E/E'}. 8. The right ventricle is normal in size. 9. Normal LA size by volume 22+/-6 ml/m2. 10. The right atrial size is normal. 11. Interatrial and interventricular septum intact. 12. There is mild aortic valve sclerosis. 13. There is no evidence of aortic regurgitation. 14. There is no evidence of aortic stenosis. 15. Mild mitral annular calcification present. 16. There is trace mitral regurgitation. 17. Mild tricuspid regurgitation present. 18. Right ventricular systolic pressure is normal at < 35 mmHg. 19. There is no evidence of pulmonary hypertension. 20. The pulmonic valve was not well visualized. 21. The aortic root size is normal. 22. IVC Not well visulized. 23. There is a trivial pericardial effusion present. CONSULTING SENIOR PRACTICE DIRECTOR: Annemarie Montes De Oca RDCS
[2019-04-26] MEDS: PIPERACILLIN-TAZOBACTAM 3.375 GM in SODIUM CHLORIDE 0.9% 100 ML IVPB SCH ×2 (12:05→20:57)
--- NOTE | 2019-04-26 14:56 | P.PN ---
Subjective Progress Note Date: 04/26/19 This is a 68-year-old -[place] male patient of Dr. Gallegos with a past medical history of hypertension, migraine headaches, lower extremity neuropathy, TIA in 2008, obstructive sleep apnea resolved after bariatric surgery, gastroesophageal reflux disease, chronic kidney disease stage III, morbid obe sity status post Dorian-en-Y, tobacco use and dependence, remote history of drug use with cocaine, heroin and marijuana. Patient complains of chest pain as well as bilateral shoulder pain that been going on for 4-5 days. He does give history of having Route rotator cuff tears. He complains of chronic low back pain. He states his blood pressure at the office is usually between 120 and 130. Patient presented to [facility] emergency center for evaluation. Temperature 100.8, heart rate 88, blood pressure 178/128. Patient was given nitro bid ointment and Catapres. Blood pressure did drop to 62/42. CBC within normal range, sodium 134, potassium 5.1, chloride 103, CO2 23, BUN 27 creatinine 2.29. Baseline creatinine is in the twos. Blood sugar 129. Troponins of been 0.030, 0.037, 0.022. Urinalysis was negative. Urine drug screen positive for opiates. Chest x-ray shows no acute cardiopulmonary process. Cardiomegaly. Aortic aneurysm. CAT scan of the brain showed no acute abnormality. CT of the chest abdomen and pelvis reveals interval progression of pleural nodules may be due to metastatic disease. Aortic aneurysm. Cardiomegaly. Noncontrast exam. Postop changes. Correlate for possible enteritis. This morning blood pressure is 157/98, pulse ox 95% on room air, afebrile, heart rate 79. Patient has been seen by Dr. Crane and chest pain is noncardiac and has been cleared for discharge. They can do an outpatient stress test. Echo has been obtained and report is pending. 04/26: Patient ran temps up to 102.5 through the night and was started on cef triaxone. The patient states that he did take some pain medicine for back and abdominal pain. Patient is noted to have some left lower quadrant pain. He denies any recent intake of nuts or seeds. No diarrhea. He denies any headache. We will change antibiotics to Zosyn. Blood pressure today is 146/90 which is improved. Cardiology has signed off. Patient will be transferred to [facility] floor without telemetry. Anticipate possible discharge home tomorrow. Echocardiogram reveals EF of 25-30%, mild aortic valve sclerosis, no aortic stenosis, trace mitral regurgitation, mild tricuspid regurgitation, no pulmonary hypertension, trivial pericardial effusion. Patient last followed up with Dr. Rowan in October 2015. At that time, he had a known ejection fraction of 45%. Objective - Vital Signs Vital signs: Vital Signs Temp 102.5 F H 04/26/19 07:54 Pulse 83 04/26/19 07:54 Resp 18 04/26/19 08:00 BP 146/90 04/26/19 07:54 Pulse Ox 94 L 04/26/19 07:54 Intake & Output 04/25/19 04/26/19 04/26/19 18:59 06:59 18:59 Intake Total 448 80 Balance 448 80 Weight 82.6 kg Intake: Oral 448 80 Other: # Voids 1 2 - Exam Review of Systems Constitutional: Denies chills, Denies fatigue, Denies fever, Denies poor appetite, Denies weakness, Denies weight gain, Denies weight loss Ears, nose, mouth and throat: Denies dental pain, Denies dysphagia, Denies nasal congestion, Denies nasal discharge, Denies vertigo Cardiovascular: Reports chest pain, Denies decreased exercise tolerance, Denies dyspnea on exertion, Denies edema, Denies leg edema, Denies lightheadedness, Denies shortness of breath, Denies syncope Respiratory: Denies cough, Denies cough with sputum, Denies dyspnea, Denies excessive sputum, Denies hemoptysis, Denies home oxygen, Denies wheezing Gastrointestinal: Reports abdominal pain, Denies diarrhea, Denies loss of appetite, Denies nausea, Denies vomiting Genitourinary: Denies urinary frequency, Denies urinary retention Musculoskeletal: Denies frequent falls, Denies gait dysfunction, Denies muscle weakness, Denies myalgias Musculoskeletal: bilateral: shoulder pain Integumentary: Denies pruritus, Denies rash, Denies wounds Neurological: Denies aphasia, Denies change in mentation, Denies change in speech, Denies numbness, Denies weakness Psychiatric: Denies anxiety, Denies depression Endocrine: Denies fatigue, Denies weight change Gen: This is a 68-year-old -[place] male. He is in bed and appears to be comfortable and in no acute distress. HEENT: Head is atraumatic, normocephalic. Pupils equal, round. Sclerae is anicteric. NECK: Supple. No JVD. No lymphadenopathy. No thyromegaly. LUNGS: Clear to auscultation. No wheezes or rhonchi. No intercostal retractions. HEART: Regular rate and rhythm. No murmur. ABDOMEN: Soft. Bowel sounds are present. No masses. Left lower quadrant te nderness. EXTREMITIES: No pedal edema. No calf tenderness. Dorsalis pedis +2 bilaterally. NEUROLOGICAL: Patient is awake, alert and oriented x3. Cranial nerves 2 through 12 are grossly intact. - Labs CBC & Chem 7: 04/25/19 05:47 04/25/19 05:47 Assessment and Plan Plan: 1. Chest pain, most likely musculoskeletal or related to bilateral rotator cuff injuries. Cardiology consult appreciated. Echocardiogram as above. 2. Hypertensive emergency. Patient will be continued on Coreg 25 mg twice daily and we will add an amlodipine 5 mg daily, hydralazine 20 mg IV push for systolic greater than 160 or diastolic greater than 100. 3. Acute enteritis. Patient started on Zosyn. 4. Severe cardiomyopathy with EF of 25-30%. Patient previously seen by Dr. Rowan with no follow-up since 2016. At that time known EF of 45. 5. History of TIA, stable. 6. Gastroesophageal reflux disease. 7. Neuropathy bilateral lower extremities. Continue gabapentin 3 mg 3 times daily 8. Morbid obesity status post Dorian-en-Y with resolution of sleep apnea with weight loss. 9. Tobacco use and dependence. Nicotine patch. 10. Chronic back pain, continue Marceline as needed. 11. GI prophylaxis. Pepcid. 12. DVT prophylaxis. Lovenox. Discharge plan: Home on Monday Impression and plan of care have been directed as dictated by the signing physician. Gladys Loyd nurse practitioner acting as scribe for signing physician.
[2019-04-26] MEDS ORDERED: LORazepam 2 MG/ML INJ IV PRN ×2 (22:50)
[2019-04-26] MEDS: LORazepam 2 MG/ML INJ IV PRN (23:30)
[2019-04-27] MEDS: PIPERACILLIN-TAZOBACTAM 3.375 GM in SODIUM CHLORIDE 0.9% 100 ML IVPB SCH ×3 (03:25→21:09)
[2019-04-27] MEDS: MAGNESIUM OXIDE 400 MG TAB PO SCH ×2 (08:38→21:10)
[2019-04-27] MEDS: CARVEDILOL 12.5 MG TAB PO SCH ×2 (08:39→16:13)
[2019-04-27] MEDS: ASCORBIC ACID 500 MG TAB PO SCH (08:39)
[2019-04-27] MEDS: amLODIPine 5 MG TAB PO SCH (08:39)
[2019-04-27] MEDS: DULoxetine HCL 60 MG CAPSULE.DR PO SCH (08:39)
[2019-04-27] MEDS: FAMOTIDINE 20 MG TAB PO SCH (08:39)
[2019-04-27] MEDS: ENOXAPARIN 40 MG/0.4 ML SYRINGE SQ SCH (08:39)
[2019-04-27] MEDS: ALLOPURINOL 100 MG TAB PO SCH (08:39)
[2019-04-27] MEDS: THIAMINE 100 MG TAB PO SCH (08:39)
[2019-04-27] MEDS: ZINC SULFATE 220 MG CAP PO SCH (09:05)
[2019-04-27] MEDS: VITAMIN A 10,000 UNIT CAPSULE PO SCH (09:05)
[2019-04-27] MEDS: GABAPENTIN 300 MG CAP PO SCH ×3 (09:05→21:09)
[2019-04-27] MEDS: HYDROcodone/APAP 10-325MG 1 EACH TAB PO SCH ×3 (09:09→21:09)
[2019-04-27 11:45] LABS: Calcium 8.8 mg/dL (8.4-10.2)
--- NOTE | 2019-04-27 12:24 | P.PN ---
Subjective Progress Note Date: 04/27/19 This is a 68-year-old gentleman with history of hypertension, chronic pain who presented to the hospital with cough chills dizziness and some chest tightness. Patient was seen in consultation yesterday by Dr. Hester who felt that his pain was very atypical in nature. We had signed off the patient yesterday however his repeat echo showed an ejection fraction of 25-30% which was a reduction from his prior echo and for this reason we are asked to re-visit the patient today. Overall he is stable. We would recommend that once he is discharged from the hospital he follow-up with Dr. Rowan on in the office. We will continue the Coreg, add hydralazine and nitrates to his medication regime, we will not initiate an WAYNE inhibitor because of the renal function. Objective - Vital Signs Vital signs: Vital Signs Temp 99 F 04/27/19 04:30 Pulse 88 04/27/19 04:30 Resp 20 04/27/19 04:30 BP 148/97 04/27/19 04:30 Pulse Ox 95 04/27/19 04:30 Intake & Output 04/26/19 04/27/19 04/27/19 18:59 06:59 18:59 Intake Total 80 100 Output Total 50 200 Balance 80 50 -200 Weight 82.6 kg Intake: Oral 80 100 Output: Urine 50 200 Other: Voiding Method Toilet # Voids 4 - Exam Gen: This is a 68-year-old -[place] male. He is in bed and appears to be comfortable and in no acute distress. HEENT: Head is atraumatic, normocephalic. Pupils equal, round. Sclerae is anicteric. NECK: Supple. No JVD. No lymphadenopathy. No thyromegaly. LUNGS: Clear to auscultation. No wheezes or rhonchi. No intercostal retractions. HEART: Regular rate and rhythm. No murmur. ABDOMEN: Soft. Bowel sounds are present. No masses. Left lower quadrant t enderness. EXTREMITIES: No pedal edema. No calf tenderness. Dorsalis pedis +2 bilaterally. NEUROLOGICAL: Patient is awake, alert and oriented x3. Cranial nerves 2 through 12 are grossly intact. - Labs CBC & Chem 7: 04/25/19 05:47 04/27/19 11:00 Labs: Abnormal Lab Results - Last 24 Hours (Table) 04/27/19 Range/Units 11:00 BUN 56 H (9-20) mg/dL Creatinine 3.39 H (0.66-1.25) mg/dL Microbiology - Last 24 Hours (Table) 04/25/19 18:38 Blood Culture - Preliminary Blood No Growth after 24 hours 04/25/19 17:50 Blood Culture - Preliminary Blood No Growth after 24 hours Assessment and Plan Plan: Assessment and Plan: 1. Chest pain, atypical in nature, most likely musculoskeletal or related to bilateral rotator cuff injuries. 2. Hypertensive emergency. 3. Acute enteritis. 4. Severe cardiomyopathy , nonischemic with EF of 25-30%. 5. History of TIA, stable. 6. Gastroesophageal reflux disease. 7. Neuropathy bilateral lower extremities. 8. Morbid obesity status post Dorian-en-Y with resolution of sleep apnea with weight loss. 9. Tobacco use and dependence. 10. Chronic back pain Plan From cardiology's perspective, we will add some hydralazine and nitrates to the patient's medication regime. A follow-up appointment with Dr. Rowan post discharge. DNP note has been reviewed, I agree with a documented findings and plan of care. Patient was seen and examined.
[2019-04-27] MEDS: hydrALAZINE HCL 25 MG TAB PO SCH ×2 (12:39→21:10)
[2019-04-27] MEDS: ISOSORBIDE MONONITRATE ER 30 MG TAB.ER.24H PO SCH (13:08)
[2019-04-27 17:03] LABS: Appearance,Urine Clear (Clear); Bilirubin,Urine Negative (Negative); Blood,Urine Negative (Negative); Color,Urine Yellow; Glucose,Urine (UA) Negative (Negative); Ketones,Urine Negative (Negative); Leukocyte Esterase,Urine Negative (Negative); Nitrite,Urine Negative (Negative); PH, Urine 5.5 (5.0-8.0); Protein,Urine Trace (Negative); Specific Gravity,Urine 1.015 (1.001-1.035); Urobilinogen,Urine <2.0 mg/dL (<2.0)
[2019-04-27] MEDS: LORazepam 2 MG/ML INJ IV PRN (21:08)
--- NOTE | 2019-04-27 21:56 | P.PN ---
Subjective Progress Note Date: 04/27/19 This is a 68-year-old -[place] male patient of Dr. Gallegos with a past medical history of hypertension, migraine headaches, lower extremity neuropathy, TIA in 2008, obstructive sleep apnea resolved after bariatric surgery, gastroesophageal reflux disease, chronic kidney disease stage III, morbid ob esity status post Dorian-en-Y, tobacco use and dependence, remote history of drug use with cocaine, heroin and marijuana. Patient complains of chest pain as well as bilateral shoulder pain that been going on for 4-5 days. He does give history of having Route rotator cuff tears. He complains of chronic low back pain. He states his blood pressure at the office is usually between 120 and 130. Patient presented to [facility] emergency center for evaluation. Temperature 100.8, heart rate 88, blood pressure 178/128. Patient was given nitro bid ointment and Catapres. Blood pressure did drop to 62/42. CBC within normal range, sodium 134, potassium 5.1, chloride 103, CO2 23, BUN 27 creatinine 2.29. Baseline creatinine is in the twos. Blood sugar 129. Troponins of been 0.030, 0.037, 0.022. Urinalysis was negative. Urine drug screen positive for opiates. Chest x-ray shows no acute cardiopulmonary process. Cardiomegaly. Aortic aneurysm. CAT scan of the brain showed no acute abnormality. CT of the chest abdomen and pelvis reveals interval progression of pleural nodules may be due to metastatic disease. Aortic aneurysm. Cardiomegaly. Noncontrast exam. Postop changes. Correlate for possible enteritis. This morning blood pressure is 157/98, pulse ox 95% on room air, afebrile, heart rate 79. Patient has been seen by Dr. Crane and chest pain is noncardiac and has been cleared for discharge. They can do an outpatient stress test. Echo has been obtained and report is pending. 04/26: Patient ran temps up to 102.5 through the night and was started on ce ftriaxone. The patient states that he did take some pain medicine for back and abdominal pain. Patient is noted to have some left lower quadrant pain. He denies any recent intake of nuts or seeds. No diarrhea. He denies any headache. We will change antibiotics to Zosyn. Blood pressure today is 146/90 which is improved. Cardiology has signed off. Patient will be transferred to [facility] floor without telemetry. Anticipate possible discharge home tomorrow. Echocardiogram reveals EF of 25-30%, mild aortic valve sclerosis, no aortic stenosis, trace mitral regurgitation, mild tricuspid regurgitation, no pulmonary hypertension, trivial pericardial effusion. Patient last followed up with Dr. Rowan in October 2015. At that time, he had a known ejection fraction of 45%. 04/27: Patient's discharge was held today, secondary to his confusion, and fidgetiness, patient's symptom be alert and oriented to situation, per family he lives in a usp house, last alcohol intake was November 23, denies any other social drug uses, Imitrex and posterior on opiates for which he is on hydrocodo ne, creatinine is elevated currently at 3.39, from a previous number of 2.23, creatinine 56, patient had urinary retention of 700 mL, cath was inserted, thereafter he is fidgetiness and last night was improved, ciwa protocol was initiated, nursing staff has noticed him to be weaker with balance issues, no tremors noted, patient can move all 4 extremities, on examination, no dysarthria noted, no facial droop, no aspirate the events blood pressure of 122/78, heart rate of 57, patient has a temp of 99.8 from a previous PA CAT scan was reviewed, there is interval progression of pleural nodules, may be due to metastatic disease, aortic aneurysm, cardiomegaly, noncontrast exam, postop changes primitivo elate for possible enteritis patient does not have any diarrhea, CT of the brain shows no hydrocephalus, orbits are stable, inflammatory changes within the maxillary sinuses, IV antibiotics started, consults were made with Dr. Alexander secondary to recurrent fevers, no primary source identified, might need LP, with viral cultureshsv Review of Systems Constitutional: Denies chills, Denies fatigue, has documented fever, Denies poor appetite, Denies weakness, Denies weight gain, Denies weight loss Ears, nose, mouth and throat: Denies dental pain, Denies dysphagia, Denies nasal congestion, Denies nasal discharge, Denies vertigo Cardiovascular: Reports chest pain, Denies decreased exercise tolerance, Denies dyspnea on exertion, Denies edema, Denies leg edema, Denies lightheadedness, Denies shortness of breath, Denies syncope Respiratory: Denies cough, Denies cough with sputum, Denies dyspnea, Denies excessive sputum, Denies hemoptysis, Denies home oxygen, Denies wheezing Gastrointestinal: Reports abdominal pain, Denies diarrhea, Denies loss of appetite, Denies nausea, Denies vomiting Genitourinary: Denies urinary frequency, Denies urinary retention Musculoskeletal: Denies frequent falls, Denies gait dysfunction, Denies muscle weakness, Denies myalgias Musculoskeletal: bilateral: shoulder pain Integumentary: Denies pruritus, Denies rash, Denies wounds Neurological: Denies aphasia, Denies change in mentation, Denies change in speech, Denies numbness, Denies weakness Psychiatric: Denies anxiety, Denies depression Endocrine: Denies fatigue, Denies weight change Objective - Vital Signs Vital signs: Vital Signs Temp 99.8 F H 04/27/19 21:24 Pulse 72 04/27/19 21:24 Resp 20 04/27/19 21:24 BP 122/78 04/27/19 21:24 Pulse Ox 98 04/27/19 21:24 Intake & Output 04/27/19 04/27/19 04/28/19 06:59 18:59 06:59 Intake Total 100 Output Total 50 1497 Balance 50 -1497 Intake: Oral 100 Output: Urine 50 950 Straight 450 Post Void Residual 547 Stool 0 Other: Voiding Method Toilet # Voids 4 1 - Constitutional General appearance: Present: average body habitus, no acute distress - EENT Eyes: Present: anicteric sclerae, dentition normal, normal appearance ENT: Present: NA/AT, normal oropharynx - Neck Neck: Present: normal ROM - Respiratory Respiratory: bilateral: CTA, negative: diminished, dullness, rales - Cardiovascular Rhythm: regular Heart sounds: normal: S1, S2 Abnormal Heart Sounds: Absent: systolic murmur, diastolic murmur, rub, S3 Gallop, S4 Gallop, click, other - Gastrointestinal General gastrointestinal: Present: normal bowel sounds - Integumentary Integumentary: Present: decreased turgor, normal - Neurologic Neurologic: Present: CNII-XII intact - Musculoskeletal Musculoskeletal: Present: strength equal bilaterally - Psychiatric Psychiatric: Present: A&O x's 3 - Labs CBC & Chem 7: 04/25/19 05:47 04/27/19 11:00 Labs: Abnormal Lab Results - Last 24 Hours (Table) 04/27/19 04/27/19 Range/Units 11:00 16:35 BUN 56 H (9-20) mg/dL Creatinine 3.39 H (0.66-1.25) mg/dL Urine Protein Trace H (Negative) Microbiology - Last 24 Hours (Table) 04/25/19 18:38 Blood Culture - Preliminary Blood No Growth after 48 hours 04/25/19 17:50 Blood Culture - Preliminary Blood No Growth after 48 hours Assessment and Plan Plan: 1. Delirium with fever,, increasing pleural nodules possibly malignancy noted on CAT scan, trace pericardial effusion, cardiology has seen the patient, and was cleared of any pericarditis, other sources could be spinal fluid, patient might need an LP, consult Dr. Alexander secondary to persistence of fever despite Zosyn, obtain Legionella antigen urine continue Zosyn, urinalysis negative, 2. Chest pain, most likely musculoskeletal or related to bilateral rotator cuff injuries. Cardiology consult appreciated. Echocardiogram as above. 3 Hypertensive emergency. Patient will be continued on Coreg 25 mg twice daily and we will add an amlodipine 5 mg daily, hydralazine 20 mg IV push for systolic greater than 160 or diastolic greater than 100. 4. Possible Acute enteritis however patient does not have any diarrhea, thick ening of the bowel is possibly physiologic. Patient started on Zosyn. 5 Severe cardiomyopathy with EF of 25-30%. Patient previously seen by Dr. Rowan with no follow-up since 2016. At that time known EF of 45. 6 History of TIA, stable. 7. Gastroesophageal reflux disease. 8 Neuropathy bilateral lower extremities. Continue gabapentin 3 mg 3 times daily 9 Morbid obesity status post Dorian-en-Y with resolution of sleep apnea with weight loss. Urinary retention requiring straight cath, Postobstructive uropathy with renal sufficiency, no hydronephrosis on CT, start Flomax check for PSA 0 Tobacco use and dependence. Nicotine patch. 11 Chronic back pain, continue [place] as needed. 12 GI prophylaxis. Pepcid. 13 DVT prophylaxis. Lovenox.
[2019-04-27] MEDS: MELATONIN 3 MG TABLET PO SCH (23:46)
[2019-04-28] MEDS: LORazepam 2 MG/ML INJ IV PRN ×4 (01:37→19:34)
[2019-04-28] MEDS: PIPERACILLIN-TAZOBACTAM 3.375 GM in SODIUM CHLORIDE 0.9% 100 ML IVPB SCH ×3 (04:04→20:00)
[2019-04-28] MEDS: FAMOTIDINE 20 MG TAB PO SCH (07:41)
[2019-04-28] MEDS: THIAMINE 100 MG TAB PO SCH (07:41)
[2019-04-28] MEDS: amLODIPine 5 MG TAB PO SCH (07:41)
[2019-04-28] MEDS: DULoxetine HCL 60 MG CAPSULE.DR PO SCH (07:41)
[2019-04-28] MEDS: ISOSORBIDE MONONITRATE ER 30 MG TAB.ER.24H PO SCH (07:41)
[2019-04-28] MEDS: hydrALAZINE HCL 25 MG TAB PO SCH ×3 (07:41→19:49)
[2019-04-28] MEDS: TAMSULOSIN 0.4 MG CAP.ER.24H PO SCH (07:41)
[2019-04-28] MEDS: ASCORBIC ACID 500 MG TAB PO SCH (07:42)
[2019-04-28] MEDS: ALLOPURINOL 100 MG TAB PO SCH (07:42)
[2019-04-28] MEDS: MAGNESIUM OXIDE 400 MG TAB PO SCH ×2 (07:42→19:34)
[2019-04-28] MEDS: CARVEDILOL 12.5 MG TAB PO SCH ×2 (07:42→15:10)
[2019-04-28] MEDS: GABAPENTIN 300 MG CAP PO SCH ×3 (07:42→21:15)
[2019-04-28] MEDS: ZINC SULFATE 220 MG CAP PO SCH (07:43)
[2019-04-28] MEDS: HYDROcodone/APAP 10-325MG 1 EACH TAB PO SCH ×3 (07:43→21:15)
[2019-04-28] MEDS: VITAMIN A 10,000 UNIT CAPSULE PO SCH (07:43)
[2019-04-28] MEDS ORDERED: ENOXAPARIN 30 MG/0.3 ML SYRINGE SQ SCH (09:00)
[2019-04-28 12:28] LABS: Albumin 3.8 g/dL (3.5-5.0); Calcium 8.9 mg/dL (8.4-10.2); Magnesium 2.8 mg/dL (1.6-2.3); Potassium 5.2 mmol/L (3.5-5.1); Total Bilirubin 0.7 mg/dL (0.2-1.3); Total Protein 6.6 g/dL (6.3-8.2)
[2019-04-28 12:30] LABS: C Reactive Protein <5.0 mg/L (<10.0); LDH 518 U/L (313-618)
[2019-04-28 12:36] LABS: Basophils % (A) 0 %; Eosinophils # (A) 0.1 k/uL (0-0.7); Eosinophils % (A) 2 %; HGB 11.9 gm/dL (13.0-17.5); Lymphocytes # (A) 0.7 k/uL (1.0-4.8); Lymphocytes % (A) 11 %; MCH 28.4 pg (25.0-35.0); MCHC 31.4 g/dL (31.0-37.0); MCV 90.4 fL (80.0-100.0); Mean Platelet Volume 7.9; Monocytes # (A) 0.5 k/uL (0-1.0); Monocytes % (A) 7 %; Neutrophils # (A) 5.5 k/uL (1.3-7.7); Neutrophils % (A) 79 %; Platelet Count 146 k/uL (150-450); RBC 4.21 m/uL (4.30-5.90)
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
--- NOTE | 2019-04-28 18:21 | P.PN ---
Subjective Progress Note Date: 04/28/19 This is a 68-year-old -[place] male patient of Dr. Gallegos with a past medical history of hypertension, migraine headaches, lower extremity neuropathy, TIA in 2008, obstructive sleep apnea resolved after bariatric surgery, gastroesophageal reflux disease, chronic kidney disease stage III, morbid ob esity status post Dorian-en-Y, tobacco use and dependence, remote history of drug use with cocaine, heroin and marijuana. Patient complains of chest pain as well as bilateral shoulder pain that been going on for 4-5 days. He does give history of having Route rotator cuff tears. He complains of chronic low back pain. He states his blood pressure at the office is usually between 120 and 130. Patient presented to [facility] emergency center for evaluation. Temperature 100.8, heart rate 88, blood pressure 178/128. Patient was given nitro bid ointment and Catapres. Blood pressure did drop to 62/42. CBC within normal range, sodium 134, potassium 5.1, chloride 103, CO2 23, BUN 27 creatinine 2.29. Baseline creatinine is in the twos. Blood sugar 129. Troponins of been 0.030, 0.037, 0.022. Urinalysis was negative. Urine drug screen positive for opiates. Chest x-ray shows no acute cardiopulmonary process. Cardiomegaly. Aortic aneurysm. CAT scan of the brain showed no acute abnormality. CT of the chest abdomen and pelvis reveals interval progression of pleural nodules may be due to metastatic disease. Aortic aneurysm. Cardiomegaly. Noncontrast exam. Postop changes. Correlate for possible enteritis. This morning blood pressure is 157/98, pulse ox 95% on room air, afebrile, heart rate 79. Patient has been seen by Dr. Crane and chest pain is noncardiac and has been cleared for discharge. They can do an outpatient stress test. Echo has been obtained and report is pending. 04/26: Patient ran temps up to 102.5 through the night and was started on ce ftriaxone. The patient states that he did take some pain medicine for back and abdominal pain. Patient is noted to have some left lower quadrant pain. He denies any recent intake of nuts or seeds. No diarrhea. He denies any headache. We will change antibiotics to Zosyn. Blood pressure today is 146/90 which is improved. Cardiology has signed off. Patient will be transferred to [facility] floor without telemetry. Anticipate possible discharge home tomorrow. Echocardiogram reveals EF of 25-30%, mild aortic valve sclerosis, no aortic stenosis, trace mitral regurgitation, mild tricuspid regurgitation, no pulmonary hypertension, trivial pericardial effusion. Patient last followed up with Dr. Rowan in October 2015. At that time, he had a known ejection fraction of 45%. 04/27: Patient's discharge was held today, secondary to his confusion, and fidgetiness, patient's symptom be alert and oriented to situation, per family he lives [place] a [place] house, last alcohol intake was November 23, denies any other social drug uses, Imitrex and posterior on opiates for which he is on hydrocodo ne, creatinine is elevated currently at 3.39, from a previous number of 2.23, creatinine 56, patient had urinary retention of 700 mL, cath was inserted, thereafter he is fidgetiness and last night was improved, ciwa protocol was initiated, nursing staff has noticed him to be weaker with balance issues, no tremors noted, patient can move all 4 extremities, on examination, no dysarthria noted, no facial droop, no aspirate the events blood pressure of 122/78, heart rate of 57, patient has a temp of 99.8 from a previous PA CAT scan was reviewed, there is interval progression of pleural nodules, may be due to metastatic disease, aortic aneurysm, cardiomegaly, noncontrast exam, postop changes primitivo elate for possible enteritis patient does not have any diarrhea, CT of the brain shows no hydrocephalus, orbits are stable, inflammatory changes within the maxillary sinuses, IV antibiotics started, consults were made with Dr. Alexander secondary to recurrent fevers, no primary source identified, might need LP, with viral cultureshsv 04/28, patient remains in the room without any safety sees , he seems to be more alert today however he requires Ativan for impulsiveness and agitation, he seems to be oriented to time and place and person, however he gets crepitation off his behaviors from aggressive to being sleepy, nursing staff has held the gabapentin, we will decrease [place] to 7.53-5. LP is planned for the morning, to evaluate encephalitis no change in antibiotic from Dr. Alexander patient has been seen by oncology, and an panel ordered, pulmonary also was consulted, no plans for bronchoscopy as it is not amenable or accessible, no immediate need for CT guided biopsy, as per their recommendation based on a PET/CT done outpatient January 2019 with the posterior left heart border SUV off 3.9 that was difficult to differentiate as it is immediately adjacent to the hyper metabolic cardiac mus unique Review of Systems Constitutional: Denies chills, Denies fatigue, has documented fever, Denies poor appetite, Denies weakness, Denies weight gain, Denies weight loss Ears, nose, mouth and throat: Denies dental pain, Denies dysphagia, Denies nasal congestion, Denies nasal discharge, Denies vertigo Cardiovascular: Reports chest pain, Denies decreased exercise tolerance, Denies dyspnea on exertion, Denies edema, Denies leg edema, Denies lightheadedness, Denies shortness of breath, Denies syncope Respiratory: Denies cough, Denies cough with sputum, Denies dyspnea, Denies excessive sputum, Denies hemoptysis, Denies home oxygen, Denies wheezing Gastrointestinal: Reports abdominal pain, Denies diarrhea, Denies loss of appetite, Denies nausea, Denies vomiting Genitourinary: Denies urinary frequency, Denies urinary retention Musculoskeletal: Denies frequent falls, Denies gait dysfunction, Denies muscle weakness, Denies myalgias Musculoskeletal: bilateral: shoulder pain Integumentary: Denies pruritus, Denies rash, Denies wounds Neurological: Denies aphasia, Denies change in mentation, Denies change in speech, Denies numbness, Denies weakness Psychiatric: Denies anxiety, Denies depression Endocrine: Denies fatigue, Denies weight change Objective - Vital Signs Vital signs: Vital Signs Temp 97.0 F L 04/28/19 13:36 Pulse 85 04/28/19 13:36 Resp 16 04/28/19 13:36 BP 94/55 04/28/19 13:36 Pulse Ox 92 L 04/28/19 13:36 Intake & Output 04/27/19 04/28/19 04/28/19 18:59 06:59 18:59 Intake Total 250 Output Total 1497 400 750 Balance -9547 150 -750 Intake: Oral 250 Output: Urine 950 400 750 Straight 450 Post Void Residual 547 Stool 0 Other: Voiding Method Toilet Toilet Incontinent # Voids 1 4 1 # Bowel Movements 0 - Constitutional General appearance: Present: cooperative, no acute distress - EENT Eyes: Present: anicteric sclerae, EOMI, PERRLA, dentition normal ENT: Present: NA/AT, normal oropharynx - Neck Neck: Present: normal ROM - Respiratory Respiratory: bilateral: CTA, negative: diminished, dullness - Cardiovascular Rhythm: regular Heart sounds: normal: S1, S2 Abnormal Heart Sounds: Absent: systolic murmur, diastolic murmur, rub, S3 Gallop, S4 Gallop, click, other - Gastrointestinal General gastrointestinal: Present: normal bowel sounds - Integumentary Integumentary: Present: decreased turgor, normal - Neurologic Neurologic: Present: CNII-XII intact - Musculoskeletal Musculoskeletal: Present: gait normal, strength equal bilaterally - Psychiatric Psychiatric: Present: A&O x's 3, appropriate affect - Labs CBC & Chem 7: 04/28/19 12:01 04/28/19 12:01 Labs: Abnormal Lab Results - Last 24 Hours (Table) 04/28/19 04/28/19 Range/Units 12:01 12:01 RBC 4.21 L (4.30-5.90) m/uL Hgb 11.9 L (13.0-17.5) gm/dL Hct 38.0 L (39.0-53.0) % Plt Count 146 L (150-450) k/uL Lymphocytes # 0.7 L (1.0-4.8) k/uL Potassium 5.2 H (3.5-5.1) mmol/L BUN 57 H (9-20) mg/dL Creatinine 3.33 H (0.66-1.25) mg/dL Glucose 126 H (74-99) mg/dL Magnesium 2.8 H (1.6-2.3) mg/dL ALT 13 L (21-72) U/L Microbiology - Last 24 Hours (Table) 04/27/19 16:35 Urine Culture - Preliminary Urine,Catheterized 04/25/19 18:38 Blood Culture - Preliminary Blood No Growth after 48 hours 04/25/19 17:50 Blood Culture - Preliminary Blood No Growth after 48 hours Assessment and Plan Plan: 1. Delirium with fever,, increasing pleural nodules possibly malignancy noted on CAT scan, trace pericardial effusion, cardiology has seen the patient, and was cleared of any pericarditis, other sources could be spinal fluid, patient might need an LP, consult Dr. Alexander secondary to persistence of fever despite Zosyn, obtain Legionella antigen urine continue Zosyn, urinalysis negative, 2. Chest pain, most likely musculoskeletal or related to bilateral rotator cuff injuries. Cardiology consult appreciated. Echocardiogram as above. [place] recommendations from both oncology and pulmonary 2. Abnormal imaging studies in CT, increasing pleural nodules, possible hypermetabolic lesion posterior to the cardiac border, pulmonary and oncology follow him closely 3 Hypertensive emergency. Patient will be continued on Coreg 25 mg twice daily and we will add an amlodipine 5 mg daily, hydralazine 20 mg IV push for systolic greater than 160 or diastolic greater than 100. 4. Possible Acute enteritis however patient does not have any diarrhea, thickening of the bowel is possibly physiologic. Patient started on Zosyn. 5 Severe cardiomyopathy with EF of 25-30%. Patient previously seen by Dr. Rowan with no follow-up since 2016. At that time known EF of 45. 6 History of TIA, stable. 7. Gastroesophageal reflux disease. 8 Neuropathy bilateral lower extremities. Continue gabapentin 3 mg 3 times daily 9 Morbid obesity status post Dorian-en-Y with resolution of sleep apnea with weight loss. Urinary retention requiring straight cath, Postobstructive uropathy with renal sufficiency, no hydronephrosis on CT, start Flomax check for PSA 0 Tobacco use and dependence. Nicotine patch. 11 Chronic back pain, continue [place] as needed. 12 GI prophylaxis. Pepcid. 13 DVT prophylaxis. Lovenox.
[2019-04-28] MEDS: MELATONIN 3 MG TABLET PO SCH (19:34)
--- NOTE | 2019-04-28 22:47 | CONS ---
CONSULTATION DATE OF SERVICE: April 28, 2019. REASON FOR CONSULTATION: Fever. HISTORY OF PRESENT ILLNESS: The patient is a 68-year-old male who was brought in to the [facility] ER on 04/24/2019 with chief complaints of cough, chills, dizziness and chest pain apparently started on Monday before he presented to hospital with a previous history of pneumonia. The patient on presentation to the hospital did have a fever of 100.8, though the patient white count was normal at 7.8. The patient did have a chest x-ray done in the ER that was negative for any acute pulmonary process, cardiomegaly and aortic aneurysm. The patient UA was negative. Urine drug screen was positive for opiates. The patient subsequently did have a CT of the chest, abdomen and pelvis completed which shows interval progression of pleural nodules may be due to metastatic disease, aortic aneurysm, cardiomegaly and possible enteritis. This patient has been running a fever on a daily basis with 102 on 04/25, same of 102.5 on April 26 and 100.8 yesterday with persistent fever. I was asked to see the patient for further evaluation. The patient has been empirically treated with Zosyn. The patient is currently encephalopathic. He did open his eyes and answer some simple questions, but he was not aware of his surroundings. Denied any headache though. No nausea, vomiting or diarrhea reported by the nursing staff. So most of the questions has been obtained from review of the chart as the patient unable to provide any reliable history. REVIEW OF SYSTEMS: Could not be obtained because of underlying mental status. PAST MEDICAL HISTORY: Of recurrent CVA TIA, hypertension, osteoarthritis, pneumonia, seizure disorder, sleep apnea, migraine headache. PAST SURGICAL HISTORY: Bariatric surgery, hernia repair, jaw replacement. SOCIAL HISTORY: Positive for cocaine and heroin use and marijuana. FAMILY HISTORY: Father with history of hypertension. Mother history of colon cancer. ALLERGIES: No known drug allergies. MEDICATION: Include the patient is currently on Norvasc, vitamin C, , Coreg, Cymbalta, Lovenox, Pepcid, Neurontin, hydralazine, Imdur, Ativan, Mag-Oxide, Melatonin, Narcan and Zosyn. PHYSICAL EXAMINATION: Blood pressure is 165/80 with pulse 64, temperature 98.6, T-max is 100.8. General description is an elderly male lying in bed in no distress. No tachypnea or accessory muscles of respiration use. HEENT: Shows slight pallor. No scleral icterus. Oral mucosa membranes are dry. No pharyngeal erythema or thrush. Neck trachea central. No thyromegaly. Lungs unlabored breathing. Decreased breath sounds in the bases. No wheeze or crackles. Heart S1, S2. Regular rate and rhythm. ABDOMEN: Soft, no tenderness. No guarding or rigidity. EXTREMITIES: No edema of the feet. Skin examination: No rash or mass palpable. Neurological: The patient is sleepy, lethargic though arousable, confused. No neck rigidity. LABS: Hemoglobin 11.9, white count 7.7, 13, BUN of 57, creatinine 3.23, potassium 5.2. UA x2 has been negative. Urine drug screen positive for opiates. CT chest, abdominal, pelvis report as mentioned above. DIAGNOSTIC IMPRESSION AND PLAN: Patient with low-grade fever in this patient who was admitted to the hospital with cough. The patient did not have any elevated white count. Chest x-ray was negative. CT of chest, abdomen, pelvis shows some pulmonary nodules, but no evidence of any consolidation or any intraabdominal pathology with persistent mental status changes and : encephalitis needs to be ruled out. Clinically doubt bacterial meningitis. The patient not responding well to the IV Zosyn patient is already on and no clinical suspicion for underlying bacterial infection. PLAN: 1. We will consult anesthesia for obtaining an LP with fluid sent for cell count, differential, glucose, protein, HSV, and PCR. 2. Zosyn at this point. 3. We will follow up on clinical condition and these investigations to further adjust medication if needed. Thank you for this consultation. Will follow this patient along with you. MMODL / IJN: [id number] /
[2019-04-29] MEDS: PIPERACILLIN-TAZOBACTAM 3.375 GM in SODIUM CHLORIDE 0.9% 100 ML IVPB SCH ×3 (03:23→19:20)
[2019-04-29] MEDS: LORazepam 2 MG/ML INJ IV PRN ×2 (04:22→19:15)
[2019-04-29] MEDS: ISOSORBIDE MONONITRATE ER 30 MG TAB.ER.24H PO SCH (08:12)
[2019-04-29] MEDS: MAGNESIUM OXIDE 400 MG TAB PO SCH ×2 (08:12→19:14)
[2019-04-29] MEDS: CARVEDILOL 12.5 MG TAB PO SCH ×2 (08:13→17:15)
[2019-04-29] MEDS: ASCORBIC ACID 500 MG TAB PO SCH (08:13)
[2019-04-29] MEDS: hydrALAZINE HCL 25 MG TAB PO SCH (08:13)
[2019-04-29] MEDS: amLODIPine 5 MG TAB PO SCH (08:13)
[2019-04-29] MEDS: FAMOTIDINE 20 MG TAB PO SCH (08:14)
[2019-04-29] MEDS: VITAMIN A 10,000 UNIT CAPSULE PO SCH (08:15)
[2019-04-29] MEDS: ALLOPURINOL 100 MG TAB PO SCH (08:15)
[2019-04-29] MEDS: ZINC SULFATE 220 MG CAP PO SCH (08:15)
[2019-04-29] MEDS: DULoxetine HCL 60 MG CAPSULE.DR PO SCH (08:16)
[2019-04-29] MEDS: TAMSULOSIN 0.4 MG CAP.ER.24H PO SCH (08:16)
[2019-04-29] MEDS: GABAPENTIN 300 MG CAP PO SCH (08:19)
[2019-04-29] MEDS: HYDROcodone/APAP 10-325MG 1 EACH TAB PO SCH ×3 (08:19→21:28)
[2019-04-29] MEDS: THIAMINE 100 MG TAB PO SCH (08:23)
[2019-04-29 09:31] LABS: Immunoglobulin M 46.5 mg/dL (40.0-280.0)
[2019-04-29 10:00] LABS: Basophils % (A) 0 %; Eosinophils # (A) 0.2 k/uL (0-0.7); Eosinophils % (A) 2 %; HCT 35.9 % (39.0-53.0); HGB 11.6 gm/dL (13.0-17.5); Lymphocytes # (A) 0.6 k/uL (1.0-4.8); Lymphocytes % (A) 10 %; MCH 29.1 pg (25.0-35.0); MCHC 32.2 g/dL (31.0-37.0); MCV 90.6 fL (80.0-100.0); Monocytes # (A) 0.4 k/uL (0-1.0); Monocytes % (A) 6 %; Neutrophils # (A) 4.9 k/uL (1.3-7.7); Neutrophils % (A) 79 %; Platelet Count 128 k/uL (150-450); RBC 3.97 m/uL (4.30-5.90); RDW 13.9 % (11.5-15.5); WBC 6.2 k/uL (3.8-10.6)
[2019-04-29 10:15] LABS: Albumin 3.6 g/dL (3.5-5.0); Calcium 8.9 mg/dL (8.4-10.2); Potassium 4.7 mmol/L (3.5-5.1); Total Bilirubin 0.6 mg/dL (0.2-1.3); Total Protein 6.3 g/dL (6.3-8.2)
--- NOTE | 2019-04-29 12:14 | P.PN ---
Subjective Progress Note Date: 04/29/19 Principal diagnosis: Pulm Nodules Resting comfortably family at bedside Objective - Vital Signs Vital signs: Vital Signs Temp 97.2 F L 04/29/19 06:10 Pulse 68 04/29/19 06:10 Resp 14 04/29/19 08:00 BP 106/68 04/29/19 06:10 Pulse Ox 99 04/29/19 06:10 Intake & Output 04/28/19 04/29/19 04/29/19 18:59 06:59 18:59 Output Total 750 300 Balance -750 -300 Output: Urine 750 300 Other: Voiding Method Incontinent Incontinent Incontinent # Voids 1 0 # Bowel Movements 0 - Exam General: Alert , No Acute Distress Head: Normocytic, Atraumatic Neck: Supple Mouth: No Lesions, No Thrush Eyes: Non-sclerotic No Palpable cervical, supraclavicular, axillary adenopathy Heart: Regular Rate, Regular Rhythm Lungs: increased respiratory effort noted Abdomen: Soft, Non-Distended, Non-Tended, BSx4 - Labs CBC & Chem 7: 04/29/19 09:31 04/29/19 09:31 Labs: Abnormal Lab Results - Last 24 Hours (Table) 04/28/19 04/28/19 04/28/19 Range/Units 12:01 12:01 12:01 RBC 4.21 L (4.30-5.90) m/uL Hgb 11.9 L (13.0-17.5) gm/dL Hct 38.0 L (39.0-53.0) % Plt Count 146 L (150-450) k/uL Lymphocytes # 0.7 L (1.0-4.8) k/uL Potassium 5.2 H (3.5-5.1) mmol/L BUN 57 H (9-20) mg/dL Creatinine 3.33 H (0.66-1.25) mg/dL Glucose 126 H (74-99) mg/dL Magnesium 2.8 H (1.6-2.3) mg/dL ALT 13 L (21-72) U/L Free [place] LC, Quant 13.20 H (0.33-1.94) mg/dL Free [place] LC, Quant 6.57 H (0.57-2.63) mg/dL 04/29/19 04/29/19 Range/Units 09:31 09:31 RBC 3.97 L (4.30-5.90) m/uL Hgb 11.6 L (13.0-17.5) gm/dL Hct 35.9 L (39.0-53.0) % Plt Count 128 L (150-450) k/uL Lymphocytes # 0.6 L (1.0-4.8) k/uL Potassium (3.5-5.1) mmol/L BUN 61 H (9-20) mg/dL Creatinine 3.84 H (0.66-1.25) mg/dL Glucose 117 H (74-99) mg/dL Magnesium (1.6-2.3) mg/dL ALT 17 L (21-72) U/L Free [place] LC, Quant (0.33-1.94) mg/dL Free Lambda LC, Quant (0.57-2.63) mg/dL Microbiology - Last 24 Hours (Table) 04/27/19 16:35 Urine Culture - Final Urine,Catheterized 04/25/19 18:38 Blood Culture - Preliminary Blood No Growth after 72 hours 04/25/19 17:50 Blood Culture - Preliminary Blood No Growth after 72 hours Assessment and Plan Plan: Assessment and Recommendations: Fever of Unknown Origin: - Max Cultures negative - ID Following - Abx onboard Pulmonary Nodules - COncern for malignancy - Consult placed for pulmonary - If concern Malignanct nature will need tissue biopsy, defer Bronch versus IR to pulm Acute renal Insuffi/Chronic Kidney Disease stage 3 - Renal Function Worseing - Nephrology Consult - Recheck labs today - Take into consideration prior diagnosis MGUS for potential MM. - Recheck Myeloma panel and anemia panel Await pulm evaluation and fullo myeloma panel.
[2019-04-29 13:29] LABS: Albumin 3.55 g/dL (3.80-4.90); Gamma Globulin 0.83 g/dL (0.70-1.50)
--- NOTE | 2019-04-29 14:22 | P.PN ---
Subjective Progress Note Date: 04/29/19 Principal diagnosis: Subpleural density along the left base, with no activity on the PET scan 68-year-old -[place] male patient, was hospitalized because of shortness of breath and chest pain. Currently confused and unable to provide any history. Reviewed the records. My consultation is mainly to comment on the pulmonary nodules that were seen in the CAT scan of the chest. I reviewed the records. The patient has previous history of MGUS. He also has multiple medical problems and comorbidities. He has had previous history of CVA, hypertension, migraine, peripheral neuropathy, TIA, obstructive sleep apnea that improved following her bariatric surgery, chronic stage III kidney disease and the patient has undergone previous one Y gastric bypass surgery for morbid obesity. He also has previous history of smoking in addition to previous history of substance abuse including cocaine and heroin and marijuana. During this current admission, injection was positive for opiates. Chest x-ray was negative. There was cardiomegaly. CAT scan of the brain showed no acute abnormalities. CAT scan of the chest abdomen and pelvis showed only nodules along the pleural surface that has progressed in size and for that reason a pulmonary consultation was requested. Noted the patient also has cardiomyopathy with an ejection fraction of 25-30%. Currently he is delirious. 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 The lung show subpleural nodularity in the left which has progressed and interval. No pleural effusion. There is no other lesion along the left cardiac border that was seen on the previous PET scan. In fact, a PET scan was done regarding the pulmonary nodules back in 02/23/2019 and this was ordered by his primary care physician, Dr. Brian Gallegos, and the PET scan showed a soft tissue density present in the posterior left heart border associated with a SUV of 3.9 and this was somewhat difficult to differentiate as its immediately adjacent to the hypermetabolic hearts. The pleural lesion did not show any activity. On 04/29/2019 patient seen in follow-up on medical surgical floor. He is sedated, he had received some Ativan apparently earlier this morning he was agitated, delirious, attempting to get up out of bed unassisted. He is suspected to be actively withdrawing from alcohol, and he is on CIWA protocol. Remainder pulse ox is 98%, patient is afebrile, hemodynamically patient is stable, blood and urine cultures have shown no growth, today's labs have been reviewed, showing white blood cell count of 6.2, hemoglobin of 11.6, electrolytes were within normal limits, BUN of 61 creatinine is 3.84. Urinalysis was negative, ID service is following, and patient is on Zosyn for there can antibiotic coverage. In view of his delirious state, and altered mentation anesthesia was consulted for lumbar puncture, which is supposed to take place sometime today. Afebrile, safety trainer is at the bedside, hemodynamically patient is stable. Hematology is following. No difficulty breathing, maintain aspiration precautions. Lung sounds reveal some scattered rhonchi Objective - Vital Signs Vital signs: Vital Signs Temp 97.3 F L 04/29/19 13:46 Pulse 66 04/29/19 13:46 Resp 15 04/29/19 13:46 BP 90/55 04/29/19 13:46 Pulse Ox 98 04/29/19 13:46 Intake & Output 04/28/19 04/29/19 04/29/19 18:59 06:59 18:59 Output Total 750 300 Balance -750 -300 Output: Urine 750 300 Other: Voiding Method Incontinent Incontinent Incontinent # Voids 1 0 # Bowel Movements 0 - Exam GENERAL EXAM: Sedated, comfortable, 68-year-old -[place] male on room air in no apparent distress. HEAD: Normocephalic/atraumatic. EYES: Normal reaction of pupils, equal size. Conjunctiva pink, sclera white. NOSE: Clear with pink turbinates. THROAT: No erythema or exudates. NECK: No masses, no JVD, no thyroid enlargement, no adenopathy. CHEST: No chest wall deformity. Symmetrical expansion. LUNGS: Equal air entry with some scattered rhonchi, no significant wheezes or rales CVS: Regular rate and rhythm, normal S1 and S2, no gallops, no murmurs, no rubs ABDOMEN: Soft, nontender. No hepatosplenomegaly, normal bowel sounds, no guarding or rigidity. EXTREMITIES: No clubbing, no edema, no cyanosis, 2+ pulses and upper and lower extremities. MUSCULOSKELETAL: Muscle strength and tone normal. SPINE: No scoliosis or deformity SKIN: No rashes CENTRAL NERVOUS SYSTEM: Sedated. No focal deficits, tone is normal in all 4 extremities. - Labs CBC & Chem 7: 04/29/19 09:31 04/29/19 09:31 Labs: Abnormal Lab Results - Last 24 Hours (Table) 04/28/19 04/29/19 04/29/19 Range/Units 12:01 09:31 09:31 RBC 3.97 L (4.30-5.90) m/uL Hgb 11.6 L (13.0-17.5) gm/dL Hct 35.9 L (39.0-53.0) % Plt Count 128 L (150-450) k/uL Lymphocytes # 0.6 L (1.0-4.8) k/uL BUN 61 H (9-20) mg/dL Creatinine 3.84 H (0.66-1.25) mg/dL Glucose 117 H (74-99) mg/dL ALT 17 L (21-72) U/L Total Protein (PEP) 6.0 L (6.2-8.2) g/dL Albumin (PEP) 3.55 L (3.80-4.90) g/dL Free [place] LC, Quant 13.20 H (0.33-1.94) mg/dL Free [place]ambda LC, Quant 6.57 H (0.57-2.63) mg/dL Microbiology - Last 24 Hours (Table) 04/27/19 16:35 Urine Culture - Final Urine,Catheterized 04/25/19 18:38 Blood Culture - Preliminary Blood No Growth after 72 hours 04/25/19 17:50 Blood Culture - Preliminary Blood No Growth after 72 hours Assessment and Plan Plan: Assessment: 1 abnormal CAT scan of the chest findings with a subpleural density along the left in addition to another tiny lesion along the left cardiac border. Noted the patient a PET scan back in January 2019. This subpleural lesion has not shown any metabolic activity. There was questionable activity in the lesion lung the cardiac border with an SUV of 3.9 however this was hard to characterize as the lesion is very close to the hypermetabolic cardiac border. The significance of this lesions are not clear. Could potentially represent malignancy 2 altered mentation currently under investigation. 3 chest pain, skeletal in nature 4 severe cardiomyopathy with an ejection fraction of 25-30% 5 history of TIA 6 peripheral neuropathy 7 morbidly obesity with a previous Dorian-en-Y gastric bypass surgery 8 obstructive sleep apnea improved with weight loss 9 history of urinary retention requiring straight cathed 10 chronic back pain 11 history of MGUS 12 history of chronic migraine headaches 13 history of stage III chronic kidney disease 14 history of substance abuse including cocaine and heroin and marijuana 15 history of tobacco smoking 16 history of rotator cuff tear Plan: Patient continues to be confused and delirious, awaiting LP today, will await CSF cultures. Hemodynamically stable, maintaining stable oxygenation on room air, maintain aspiration precautions. We'll wait on proceeding with biopsies as the patient has multiple other active issues. Patient will need a CT scan guide d needle aspirate biopsy of this subpleural lesion on the left eye interventional radiology. I performed a history & physical examination of the patient and discussed their management with my nurse practitioner, Lissy Alvarado. I reviewed the nurse practitioner's note and agree with the documented findings and plan of care. Lung sounds are positive for a few scattered rhonchi. The findings and the impression was discussed with the patient. I attest to the documentation by the nurse practitioner. Time with Patient: Less than 30
--- NOTE | 2019-04-29 14:51 | P.PN ---
Subjective Progress Note Date: 04/29/19 This is a 68-year-old -[place] male patient of Dr. Gallegos with a past medical history of hypertension, migraine headaches, lower extremity neuropathy, TIA in 2008, obstructive sleep apnea resolved after bariatric surgery, gastroesophageal reflux disease, chronic kidney disease stage III, morbid obe sity status post Dorian-en-Y, tobacco use and dependence, remote history of drug use with cocaine, heroin and marijuana. Patient complains of chest pain as well as bilateral shoulder pain that been going on for 4-5 days. He does give history of having Route rotator cuff tears. He complains of chronic low back pain. He states his blood pressure at the office is usually between 120 and 130. Patient presented to [facility] emergency center for evaluation. Temperature 100.8, heart rate 88, blood pressure 178/128. Patient was given nitro bid ointment and Catapres. Blood pressure did drop to 62/42. CBC within normal range, sodium 134, potassium 5.1, chloride 103, CO2 23, BUN 27 creatinine 2.29. Baseline creatinine is in the twos. Blood sugar 129. Troponins of been 0.030, 0.037, 0.022. Urinalysis was negative. Urine drug screen positive for opiates. Chest x-ray shows no acute cardiopulmonary process. Cardiomegaly. Aortic aneurysm. CAT scan of the brain showed no acute abnormality. CT of the chest abdomen and pelvis reveals interval progression of pleural nodules may be due to metastatic disease. Aortic aneurysm. Cardiomegaly. Noncontrast exam. Postop changes. Correlate for possible enteritis. This morning blood pressure is 157/98, pulse ox 95% on room air, afebrile, heart rate 79. Patient has been seen by Dr. Crane and chest pain is noncardiac and has been cleared for discharge. They can do an outpatient stress test. Echo has been obtained and report is pending. 04/26: Patient ran temps up to 102.5 through the night and was started on cef triaxone. The patient states that he did take some pain medicine for back and abdominal pain. Patient is noted to have some left lower quadrant pain. He denies any recent intake of nuts or seeds. No diarrhea. He denies any headache. We will change antibiotics to Zosyn. Blood pressure today is 146/90 which is improved. Cardiology has signed off. Patient will be transferred to [facility] floor without telemetry. Anticipate possible discharge home tomorrow. Echocardiogram reveals EF of 25-30%, mild aortic valve sclerosis, no aortic stenosis, trace mitral regurgitation, mild tricuspid regurgitation, no pulmonary hypertension, trivial pericardial effusion. Patient last followed up with Dr. Rowan in October 2015. At that time, he had a known ejection fraction of 45%. 04/27: Patient's discharge was held today, secondary to his confusion, and fidgetiness, patient's symptom be alert and oriented to situation, per family he lives in a senior living house, last alcohol intake was November 23, denies any other social drug uses, Imitrex and posterior on opiates for which he is on hydrocodone, creatinine is elevated currently at 3.39, from a previous number of 2.23, creatinine 56, patient had urinary retention of 700 mL, cath was inserted, thereafter he is fidgetiness and last night was improved, ciwa protocol was initiated, nursing staff has noticed him to be weaker with balance issues, no tremors noted, patient can move all 4 extremities, on examination, no dysarthria noted, no facial droop, no aspirate the events blood pressure of 122/78, heart rate of 57, patient has a temp of 99.8 from a previous PA CAT scan was reviewed, there is interval progression of pleural nodules, may be due to metastatic disease, aortic aneurysm, cardiomegaly, noncontrast exam, postop changes correl ate for possible enteritis patient does not have any diarrhea, CT of the brain shows no hydrocephalus, orbits are stable, inflammatory changes within the maxillary sinuses, IV antibiotics started, consults were made with Dr. Alexander secondary to recurrent fevers, no primary source identified, might need LP, with viral cultureshsv 04/28, patient remains in the room without any safety sees , he seems to be more alert today however he requires Ativan for impulsiveness and agitation, he seems to be oriented to time and place and person, however he gets crepitation off his behaviors from aggressive to being sleepy, nursing staff has held the gabapentin, we will decrease Lyon to 7.53-5. LP is planned for the morning, to evaluate encephalitis no change in antibiotic from Dr. Alexander patient has been seen by oncology, and an panel ordered, pulmonary also was consulted, no plans for bronchoscopy as it is not amenable or accessible, no immediate need for CT guided biopsy, as per their recommendation based on a PET/CT done outpatient January 2019 with the posterior left heart border SUV off 3.9 that was difficult to differentiate as it is immediately adjacent to the hyper metabolic cardiac muscl e 04/29: Patient continues to have mental status changes and has a sitter at the bedside. Patient was very confused and trying to get out of bed this morning. He does complain of some headache. Patient is refusing to eat today. Blood pressure is on the lower side for which hydralazine will be discontinued. He is scheduled for LP today. Patient has been followed by Dr. Alexander, pulmonary medicine and oncology. Pulmonary medicine is planning for CT guided needle aspirate biopsy of the subpleural lesion on the left by interventional radiology once patient's mental status has been cleared. I'll repeat lab work reveals white count of 6.2, hemoglobin 11.6, platelet count 128. BUN 61 creatinine 3.84, blood sugar 117. Liver function tests and electrolytes unremarkable. Objective - Vital Signs Vital signs: Vital Signs Temp 97.2 F L 04/29/19 06:10 Pulse 68 04/29/19 06:10 Resp 14 04/29/19 06:10 BP 106/68 04/29/19 06:10 Pulse Ox 99 04/29/19 06:10 Intake & Output 04/28/19 04/29/19 04/29/19 18:59 06:59 18:59 Output Total 750 300 Balance -750 -300 Output: Urine 750 300 Other: Voiding Method Incontinent Incontinent # Voids 1 0 # Bowel Movements 0 - Exam Review of Systems--unable to obtain due to patient's mental status. e - Constitutional General appearance: Present: In bed, no acute distress, sitter at bedside - EENT Eyes: Present: anicteric sclerae, EOMI, PERRLA, dentition normal ENT: Present: NA/AT, normal oropharynx - Neck Neck: Present: normal ROM - Respiratory Respiratory: bilateral: CTA, negative: diminished, dullness - Cardiovascular Rhythm: regular Heart sounds: normal: S1, S2 Abnormal Heart Sounds: Absent: systolic murmur, diastolic murmur, rub, S3 Gallop, S4 Gallop, click, other - Gastrointestinal General gastrointestinal: Present: normal bowel sounds - Integumentary Integumentary: Present: decreased turgor, normal - Neurologic Neurologic: Present: CNII-XII intact - Musculoskeletal Musculoskeletal: Present: strength equal bilaterally - Psychiatric Psychiatric: Present: A&O x's 1, confused, no focal neuro deficits, no nuchal rigidity - Labs CBC & Chem 7: 04/29/19 09:31 04/29/19 09:31 Labs: Abnormal Lab Results - Last 24 Hours (Table) 04/28/19 04/28/19 04/28/19 Range/Units 12:01 12:01 12:01 RBC 4.21 L (4.30-5.90) m/uL Hgb 11.9 L (13.0-17.5) gm/dL Hct 38.0 L (39.0-53.0) % Plt Count 146 L (150-450) k/uL Lymphocytes # 0.7 L (1.0-4.8) k/uL Potassium 5.2 H (3.5-5.1) mmol/L BUN 57 H (9-20) mg/dL Creatinine 3.33 H (0.66-1.25) mg/dL Glucose 126 H (74-99) mg/dL Magnesium 2.8 H (1.6-2.3) mg/dL ALT 13 L (21-72) U/L Free [place] LC, Quant 13.20 H (0.33-1.94) mg/dL Free [place] LC, Quant 6.57 H (0.57-2.63) mg/dL Microbiology - Last 24 Hours (Table) 04/27/19 16:35 Urine Culture - Final Urine,Catheterized 04/25/19 18:38 Blood Culture - Preliminary Blood No Growth after 72 hours 04/25/19 17:50 Blood Culture - Preliminary Blood No Growth after 72 hours Assessment and Plan Plan: 1. Chest pain, most likely musculoskeletal or related to bilateral rotator cuff injuries. Cardiology consult appreciated. Echocardiogram as above. 2. Hypertensive emergency. Patient on Coreg 25 mg twice daily, amlodipine 5 mg daily, hydralazine. Patient is now hypotensive and hydralazine will be discontinued. 3. Acute enteritis. Patient started on Zosyn. 4. Delirium with fever, increasing pleural nodules possibly malignancy noted on CAT scan, trace pericardial effusion, cardiology has seen the patient, and was cleared of any pericarditis, other sources could be spinal fluid, patient might need an LP, consult Dr. Alexander secondary to persistence of fever despite Zosyn, obtain Legionella antigen urine continue Zosyn, urinalysis negative. Continue sitter. 5. Abnormal imaging studies in CT, increasing pleural nodules, possible hypermetabolic lesion posterior to the cardiac border, pulmonary and oncology follow him closely. Pulmonary medicine is planning for CAT scan guided biopsy once mental status is clear. 6. Severe cardiomyopathy with EF of 25-30%. Patient previously seen by Dr. Rowan with no follow-up since 2016. At that time known EF of 45. 7. Urinary retention requiring straight cath, 8. Acute kidney injury. Consult with Dr. Burgos added. 9. Postobstructive uropathy with renal failure, no hydronephrosis on CT. Patient has been started on Flomax, check PSA 10. History of TIA, stable. 11. Gastroesophageal reflux disease. 12. Neuropathy bilateral lower extremities. Decrease gabapentin to 100 mg 3 t imes daily. 13. History of morbid obesity status post Dorian-en-Y with resolution of sleep apnea with weight loss. 14. Tobacco use and dependence. Nicotine patch. 15. Chronic back pain, continue Lyon as needed. 16. GI prophylaxis. Pepcid. 17. DVT prophylaxis. Lovenox on hold for LP. Discharge plan: To be determined. PT and OT on Impression and plan of care have been directed as dictated by the signing physician. Gladys Loyd nurse practitioner acting as scribe for signing physic
[2019-04-29] MEDS: GABAPENTIN 100 MG CAP PO SCH ×2 (17:17→21:28)
[2019-04-29] MEDS: MELATONIN 3 MG TABLET PO SCH (19:14)
--- NOTE | 2019-04-29 19:18 | PN ---
PROGRESS NOTE DATE OF SERVICE: 04/29/2019. REASON FOR FOLLOWUP: Fever and a question of encephalitis. INTERVAL HISTORY: The patient is currently afebrile. Patient remains to be pleasantly confused. Encephalopathic. No agitation has been noted. No nausea, vomiting or any diarrhea reported by the nursing staff. On examination, blood pressure is 106/68, with a pulse of 68. Temperature 97.2. He is 99% on room air. General description is an elderly male lying in bed in no distress. Respiratory system: Unlabored breathing with decreased breath sounds at the bases. No wheeze. Heart S1, S2. Regular rate and rhythm. Abdomen soft. No tenderness. LABS: Hemoglobin 11.7, white count 6.2, BUN of 61, creatinine 3.84. DIAGNOSTIC IMPRESSION AND PLAN: Patient with fever with encephalopathy, with a question of possible encephalitis. Awaiting the lumbar puncture to be completed. Continue with empiric dose of the same. Monitor clinical course closely. Continue supportive care. MMODL / IJN: [id number] /
[2019-04-30] MEDS: LORazepam 2 MG/ML INJ IV PRN ×3 (00:22→11:49)
[2019-04-30] MEDS: PIPERACILLIN-TAZOBACTAM 3.375 GM in SODIUM CHLORIDE 0.9% 100 ML IVPB SCH ×2 (03:04→11:49)
[2019-04-30] MEDS: ENOXAPARIN 30 MG/0.3 ML SYRINGE SQ SCH (07:27)
[2019-04-30] MEDS: CARVEDILOL 12.5 MG TAB PO SCH ×2 (08:19→17:19)
[2019-04-30] MEDS: ISOSORBIDE MONONITRATE ER 30 MG TAB.ER.24H PO SCH (08:19)
[2019-04-30] MEDS: amLODIPine 5 MG TAB PO SCH (08:19)
[2019-04-30] MEDS: GABAPENTIN 100 MG CAP PO SCH ×2 (08:19→17:20)
[2019-04-30] MEDS: HYDROcodone/APAP 10-325MG 1 EACH TAB PO SCH (08:20)
[2019-04-30] MEDS ORDERED: IV FLUID CONTINUATION 400 ML IV ONE (09:13)
--- NOTE | 2019-04-30 10:22 | P.PCN ---
Date of Procedure: 04/30/19 Preoperative Diagnosis: Mental status changes, rule out encephalitis Postoperative Diagnosis: Same as above Procedure(s) Performed: Attempted lumbar puncture, the procedure was aborted due to the patient's movement Anesthesia: local Surgeon: Manda Chester Pathology: none sent Condition: stable Disposition: floor Description of Procedure: The patient was seen preoperatively. The patient cannot give consent and the consent for the procedure was obtained over the phone from his sister. The patient was brought into the procedure room and placed in the sitting position. Skin was prepped with ChloraPrep and draped in a sterile manner. Lidocaine 1% was used to numb the skin up at the L4 5 level midline approach. I used 22- gauge 3-1/2 inch Quincke needle to go through the numb area however patient was moving around, he could not follow orders. The procedure was aborted because it was deemed not safe to be completed with the current patient condition.
[2019-04-30] MEDS: THIAMINE 100 MG TAB PO SCH (11:50)
[2019-04-30] MEDS: FAMOTIDINE 20 MG TAB PO SCH (11:50)
[2019-04-30] MEDS: TAMSULOSIN 0.4 MG CAP.ER.24H PO SCH (11:51)
[2019-04-30] MEDS: ASCORBIC ACID 500 MG TAB PO SCH (11:51)
[2019-04-30] MEDS: MAGNESIUM OXIDE 400 MG TAB PO SCH (11:51)
[2019-04-30] MEDS: ALLOPURINOL 100 MG TAB PO SCH (11:51)
[2019-04-30] MEDS: DULoxetine HCL 60 MG CAPSULE.DR PO SCH (11:51)
[2019-04-30] MEDS: ZINC SULFATE 220 MG CAP PO SCH (12:00)
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
[2019-04-30] MEDS: VITAMIN A 10,000 UNIT CAPSULE PO SCH (12:01)
[2019-04-30] MEDS: SODIUM CHLORIDE 0.9% 1,000 ML IV SCH (12:13)
[2019-04-30] MEDS ORDERED: LORazepam 2 MG/ML INJ IV PRN (13:03)
[2019-04-30 13:20] LABS: HCT 35.5 % (39.0-53.0); HGB 11.2 gm/dL (13.0-17.5); MCH 29.9 pg (25.0-35.0); MCHC 31.4 g/dL (31.0-37.0); Mean Platelet Volume 8.8; Platelet Count 120 k/uL (150-450); RBC 3.74 m/uL (4.30-5.90); RDW 14.6 % (11.5-15.5); WBC 4.6 k/uL (3.8-10.6)
[2019-04-30 13:22] LABS: Albumin 3.4 g/dL (3.5-5.0); Calcium 8.4 mg/dL (8.4-10.2); Potassium 4.6 mmol/L (3.5-5.1); Total Bilirubin 0.5 mg/dL (0.2-1.3); Total Protein 6.1 g/dL (6.3-8.2)
[2019-04-30 13:39] LABS: ABG Base Excess -3.1 mmol/L; ABG HCO3 23 mmol/L (21-25); ABG PCO2 48 mmHg (35-45); ABG PO2 70 mmHg (83-108); ABG TCO2 25 mmol/L (19-24); Allen Test Performed? Yes
--- NOTE | 2019-04-30 14:48 | CT ---
EXAMINATION TYPE: CT brain wo con DATE OF EXAM: 04/30/2019 COMPARISON: Prior CT brain 04/24/2019 HISTORY: mental status change CT DLP: [id number] mGycm Automated exposure control for dose reduction was used. Helical imaging through the brain. FINDINGS: Periventricular white matter shows patchy low attenuation, cortical atrophy is again noted. There is no hemorrhage or hydrocephalus. Calvarium is intact. Paranasal sinuses and mastoid air cells are well aerated. IMPRESSION: AGE-RELATED CHANGES OF ATROPHY AND CHRONIC SMALL VESSEL ISCHEMIA, STABLE EXAM.
--- NOTE | 2019-04-30 15:03 | P.PN ---
Subjective Progress Note Date: 04/30/19 This is a 68-year-old -[place] male patient of Dr. Gallegos with a past medical history of hypertension, migraine headaches, lower extremity neuropathy, TIA in 2008, obstructive sleep apnea resolved after bariatric surgery, gastroesophageal reflux disease, chronic kidney disease stage III, morbid obe sity status post Dorian-en-Y, tobacco use and dependence, remote history of drug use with cocaine, heroin and marijuana. Patient complains of chest pain as well as bilateral shoulder pain that been going on for 4-5 days. He does give history of having Route rotator cuff tears. He complains of chronic low back pain. He states his blood pressure at the office is usually between 120 and 130. Patient presented to [facility] emergency center for evaluation. Temperature 100.8, heart rate 88, blood pressure 178/128. Patient was given nitro bid ointment and Catapres. Blood pressure did drop to 62/42. CBC within normal range, sodium 134, potassium 5.1, chloride 103, CO2 23, BUN 27 creatinine 2.29. Baseline creatinine is in the twos. Blood sugar 129. Troponins of been 0.030, 0.037, 0.022. Urinalysis was negative. Urine drug screen positive for opiates. Chest x-ray shows no acute cardiopulmonary process. Cardiomegaly. Aortic aneurysm. CAT scan of the brain showed no acute abnormality. CT of the chest abdomen and pelvis reveals interval progression of pleural nodules may be due to metastatic disease. Aortic aneurysm. Cardiomegaly. Noncontrast exam. Postop changes. Correlate for possible enteritis. This morning blood pressure is 157/98, pulse ox 95% on room air, afebrile, heart rate 79. Patient has been seen by Dr. Crane and chest pain is noncardiac and has been cleared for discharge. They can do an outpatient stress test. Echo has been obtained and report is pending. 04/26: Patient ran temps up to 102.5 through the night and was started on cef triaxone. The patient states that he did take some pain medicine for back and abdominal pain. Patient is noted to have some left lower quadrant pain. He denies any recent intake of nuts or seeds. No diarrhea. He denies any headache. We will change antibiotics to Zosyn. Blood pressure today is 146/90 which is improved. Cardiology has signed off. [facility] floor without telemetry. Anticipate possible discharge home tomorrow. Echocardiogram reveals EF of 25-30%, mild aortic valve sclerosis, no aortic stenosis, trace mitral regurgitation, mild tricuspid regurgitation, no pulmonary hypertension, trivial pericardial effusion. Patient last followed up with Dr. Rowan in October 2015. At that time, he had a known ejection fraction of 45%. 04/27: Patient's discharge was held today, secondary to his confusion, and fidgetiness, patient's symptom be alert and oriented to situation, per family he lives in a usp house, last alcohol intake was November 23, denies any other social drug uses, Imitrex and posterior on opiates for which he is on hydrocodone, creatinine is elevated currently at 3.39, from a previous number of 2.23, creatinine 56, patient had urinary retention of 700 mL, cath was inserted, thereafter he is fidgetiness and last night was improved, ciwa protocol was initiated, nursing staff has noticed him to be weaker with balance issues, no tremors noted, patient can move all 4 extremities, on examination, no dysarthria noted, no facial droop, no aspirate the events blood pressure of 122/78, heart rate of 57, patient has a temp of 99.8 from a previous PA CAT scan was reviewed, there is interval progression of pleural nodules, may be due to metastatic disease, aortic aneurysm, cardiomegaly, noncontrast exam, postop changes correl ate for possible enteritis patient does not have any diarrhea, CT of the brain shows no hydrocephalus, orbits are stable, inflammatory changes within the maxillary sinuses, IV antibiotics started, consults were made with Dr. Alexander secondary to recurrent fevers, no primary source identified, might need LP, with viral cultureshsv 04/28, patient remains in the room without any safety sees , he seems to be more alert today however he requires Ativan for impulsiveness and agitation, he seems to be oriented to time and place and person, however he gets crepitation off his behaviors from aggressive to being sleepy, nursing staff has held the gabapentin, we will decrease [place] to 7.53-5. LP is planned for the morning, to evaluate encephalitis no change in antibiotic from Dr. Alexander patient has been seen by oncology, and an panel ordered, pulmonary also was consulted, no plans for bronchoscopy as it is not amenable or accessible, no immediate need for CT guided biopsy, as per their recommendation based on a PET/CT done outpatient January 2019 with the posterior left heart border SUV off 3.9 that was difficult to differentiate as it is immediately adjacent to the hyper metabolic cardiac muscl e 04/29: Patient continues to have mental status changes and has a sitter at the bedside. Patient was very confused and trying to get out of bed this morning. He does complain of some headache. Patient is refusing to eat today. Blood pressure is on the lower side for which hydralazine will be discontinued. He is scheduled for LP today. Patient has been followed by Dr. Alexander, pulmonary medicine and oncology. Pulmonary medicine is planning for CT guided needle aspirate biopsy of the subpleural lesion on the left by interventional radiology once patient's mental status has been cleared. I'll repeat lab work reveals white count of 6.2, hemoglobin 11.6, platelet count 128. BUN 61 creatinine 3.84, blood sugar 117. Liver function tests and electrolytes unremarkable. 04/30: Patient has been hypothermic during the night with a rectal temperature of 93.6. Currently heart rate is 57, blood pressure 103/61, pulse ox 98% on room air. TSH 0.871. IgG a IgG IgM within normal limits, SUJATA screen negative. Free [place] 13.2, free lambda 6.57 are both elevated. Albumin PEEP is low at 3.55. Alpha-1 globulins and alpha-2 globulins within normal limits, beta globulins within normal limits, gamma globulins normal limits. No monoclonal paraprotein identified. Patient continues to have significant confusion and LP was attempted this morning but unsuccessful due to patient being uncooperative. We have ordered a CAT scan of the brain that showed a related changes of atrophy and chronic small vessel ischemia. Due to worsening renal function, consult added for nephrology for acute kidney injury. He has started the patient on normal saline at 75 mL per hour. Due to patient's blood pressure being low. We have discontinued amlodipine and when necessary hydralazine and [place] has also been discontinued. A cortisol level ordered for 4 PM. CIWA protocol changed to Ativan half milligram every 4 hours as needed for anxiety/agitation. Objective - Vital Signs Vital signs: Vital Signs Temp 97.7 F 04/30/19 09:03 Pulse 57 L 07/30/19 09:03 Resp 20 04/30/19 09:03 BP 103/61 04/30/19 09:03 Pulse Ox 98 04/30/19 09:03 Intake & Output 04/29/19 04/30/19 04/30/19 18:59 06:59 18:59 Intake Total 100 50 Output Total 645 Balance -545 50 Intake: IV 50 Oral 100 Output: Urine 500 Straight 500 Post Void Residual 145 Other: Voiding Method Incontinent Incontinent # Voids 0 - Exam Review of Systems--unable to obtain due to patient's mental status. - Constitutional General appearance: Present: In bed, no acute distress - EENT Eyes: Present: anicteric sclerae, EOMI, PERRLA, dentition normal ENT: Present: NA/AT, normal oropharynx - Neck Neck: Present: normal ROM - Respiratory Respiratory: bilateral: CTA, negative: diminished, dullness - Cardiovascular Rhythm: regular Heart sounds: normal: S1, S2 Abnormal Heart Sounds: Absent: systolic murmur, diastolic murmur, rub, S3 Gallop, S4 Gallop, click, other - Gastrointestinal General gastrointestinal: Present: normal bowel sounds - Integumentary Integumentary: Present: decreased turgor, normal - Neurologic Neurologic: Present: CNII-XII intact - Musculoskeletal Musculoskeletal: Present: strength equal bilaterally - Psychiatric Psychiatric: Present: A&O x's 1, confused, no focal neuro deficits, no nuchal rigidity him a unable to follow directions. - Labs CBC & Chem 7: 04/30/19 10:58 04/30/19 10:58 Labs: Abnormal Lab Results - Last 24 Hours (Table) 04/28/19 Range/Units 12:01 Total Protein (PEP) 6.0 L (6.2-8.2) g/dL Albumin (PEP) 3.55 L (3.80-4.90) g/dL Microbiology - Last 24 Hours (Table) 04/25/19 18:38 Blood Culture - Preliminary Blood No Growth after 96 hours 04/25/19 17:50 Blood Culture - Preliminary Blood No Growth after 96 hours Assessment and Plan Plan: 1. Chest pain, most likely musculoskeletal or related to bilateral rotator cuff injuries. Cardiology consult appreciated. Echocardiogram as above. 2. Hypertensive emergency. Patient on Coreg 25 mg twice daily. Patient is now hypotensive and hydralazine oral, amlodipine and IV hydralazine as needed discontinued. 3. Acute enteritis. Patient started on Zosyn. 4. Acute metabolic encephalopathy with fever, increasing pleural nodules possibly malignancy noted on CAT scan, trace pericardial effusion, cardiology has seen the patient, and was cleared of any pericarditis, other sources could be spinal fluid, LP unsuccessful, consult Dr. Alexander appreciated. Continue Zosyn, obtain Legionella antigen urine, urinalysis negative. [place] discontinued and CIWA protocol changed to Ativan 0.5 mg every 4 hours as needed for agitation/anxiety. 4 PM cortisol level ordered. Consult with neurology added. 5. Abnormal imaging studies in CT, increasing pleural nodules, possible hypermetabolic lesion posterior to the cardiac border, pulmonary and oncology follow him closely. Pulmonary medicine is planning for CAT scan guided biopsy once mental status is clear. 6. Severe cardiomyopathy with EF of 25-30%. Patient previously seen by Dr. Rowan with no follow-up since 2016. At that time known EF of 45. 7. Urinary retention requiring straight cath, 8. Acute kidney injury. Consult with Dr. Burgos added. He has initiated IV fluids 0.9 normal saline at 75 mL per hour 9. Postobstructive uropathy with renal failure, no hydronephrosis on CT. Patient has been started on Flomax, check PSA 10. History of TIA, stable. 11. Gastroesophageal reflux disease. 12. Neuropathy bilateral lower extremities. Decrease gabapentin to 100 mg 3 times daily. 13. History of morbid obesity status post Dorian-en-Y with resolution of sleep apnea with weight loss. 14. Tobacco use and dependence. Nicotine patch. 15. Chronic back pain, continue [place] as needed. 16. GI prophylaxis. Pepcid. 17. DVT prophylaxis. Lovenox. Discharge plan: To be determined. PT and OT on Impression and plan of care have been directed as dictated by the signing physician. Gladys Loyd nurse practitioner acting as scribe for signing physician.
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
[2019-04-30] MEDS: ACYCLOVIR SODIUM 1,000 MG in SODIUM CHLORIDE 0.9% 250 ML IVPB SCH (18:37)
[2019-04-30] MEDS ORDERED: SODIUM BICARB 8.4% 50 ML SYR (1 MEQ/ML) ONE (21:20)
[2019-04-30 21:35] LABS: Glucose,Whole Blood 98 mg/dL (75-99)
[2019-04-30 21:56] LABS: Creatine Kinase 38 U/L (55-170)
[2019-04-30 21:57] LABS: Calcium 8.1 mg/dL (8.4-10.2); Magnesium 3.1 mg/dL (1.6-2.3); Potassium 4.4 mmol/L (3.5-5.1); Total Bilirubin 0.6 mg/dL (0.2-1.3); Total Protein 5.6 g/dL (6.3-8.2)
[2019-04-30 22:00] LABS: D-Dimer 1.3 mg/L FEU (<0.60); Prothrombin Time 10.5 sec (9.0-12.0)
[2019-04-30 22:01] LABS: Partial Thromboplastin Time 22.3 sec (22.0-30.0)
[2019-04-30 22:05] LABS: Basophils % (A) 0 %; Eosinophils # (A) 0.1 k/uL (0-0.7); Eosinophils % (A) 2 %; HGB 11.4 gm/dL (13.0-17.5); Lymphocytes # (A) 0.3 k/uL (1.0-4.8); Lymphocytes % (A) 6 %; MCH 29.6 pg (25.0-35.0); MCHC 30.7 g/dL (31.0-37.0); MCV 96.2 fL (80.0-100.0); Mean Platelet Volume 9.1; Monocytes # (A) 0.2 k/uL (0-1.0); Monocytes % (A) 4 %; Neutrophils # (A) 3.4 k/uL (1.3-7.7); Neutrophils % (A) 86 %; Platelet Count 107 k/uL (150-450); RBC 3.84 m/uL (4.30-5.90); RDW 14.5 % (11.5-15.5)
[2019-04-30 22:08] LABS: Creatine Kinase MB 0.8 ng/mL (0.0-2.4); Troponin I <0.012 ng/mL (0.000-0.034)
[2019-04-30 22:12] LABS: Glucose,Whole Blood 107 mg/dL (75-99)
--- NOTE | 2019-04-30 22:23 | XR ---
EXAM: XR Chest, 1 View CLINICAL HISTORY: Intubation TECHNIQUE: Frontal view of the chest. COMPARISON: Chest x-ray dated 04/24/2019 FINDINGS: Lungs: Diffuse airspace opacities throughout the right lung which may be inflammatory or infectious. Pleural space: Unremarkable. No pneumothorax. Heart: Unremarkable. No cardiomegaly. Mediastinum: Tortuous of the thoracic aorta. Bones/joints: Unremarkable. Tubes, lines and devices: Enteric tube with tip terminating 3.5 cm above the albert. Enteric tube with tip in the gastric body. IMPRESSION: Diffuse airspace opacities throughout the right lung which may be inflammatory or infectious.
[2019-04-30 22:42] LABS: ABG Base Excess -4.1 mmol/L; ABG HCO3 23 mmol/L (21-25); ABG Oxygen Saturation 97.9 % (94-97); ABG PCO2 50 mmHg (35-45); ABG PH 7.27 (7.35-7.45); ABG PO2 158 mmHg (83-108); ABG TCO2 24 mmol/L (19-24); Allen Test Performed? Yes
--- NOTE | 2019-04-30 22:59 | PN ---
PROGRESS NOTE DATE OF SERVICE: 04/30/2019 Time of re-evaluation was 5 p.m. REASON FOR FOLLOWUP: Encephalopathy and question of viral encephalitis. INTERVAL HISTORY: The patient has been afebrile. The patient could not undergo LP because he would not stay still, per the RN. The patient remains encephalopathic, confused, unable to provide any history, though no agitation was noticed. No nausea, vomiting or any diarrhea reported by the nursing staff. PHYSICAL EXAMINATION: Blood pressure 99/61 with a pulse of 53, temperature 95.8. He is 99% on room air. General description is an elderly male lying in bed in no distress. RESPIRATORY SYSTEM: Unlabored breathing with decreased breath sounds at the base. HEART: S1, S2. Regular rate and rhythm. ABDOMEN: Soft. No tenderness. EXTREMITIES: No edema of the feet. LABS: Hemoglobin is 11.4, white count 4.0 with a BUN of 67, creatinine 3.53. DIAGNOSTIC IMPRESSION AND PLAN: Patient with low-grade fever with mental status changes, encephalopathy with a question of possible encephalitis. Unfortunately LP could not be completed to confirm diagnosis. HSV serologies have been ordered. Acyclovir will be added empirically at 1 gram daily. Dose has been adjusted to the kidney function and confirmed with the pharmacist. Overall prognosis remains guarded. May benefit from neurology evaluation as well or transfer to tertiary care neurology service available. MMODL / IJN: [id number] /
[2019-04-30] MEDS ORDERED: HYDROCORTISONE SUCCINATE 100 MG/2 ML VIAL IV STA (23:08)
[2019-04-30] MEDS: NOREPINEPHRINE 4 MG in SODIUM CHLORIDE 0.9% 250 ML IV SCH (23:40)
[2019-05-01] MEDS: PIPERACILLIN-TAZOBACTAM 3.375 GM in SODIUM CHLORIDE 0.9% 100 ML IVPB SCH ×3 (00:49→15:47)
[2019-05-01] MEDS: PROPOFOL 1,000 MG in EMPTY BAG 1 BAG IV SCH ×3 (02:36→17:46)
[2019-05-01] MEDS: MELATONIN 3 MG TABLET PO SCH ×2 (02:40→22:58)
[2019-05-01] MEDS: MAGNESIUM OXIDE 400 MG TAB PO SCH ×2 (02:44→08:43)
[2019-05-01] MEDS: GABAPENTIN 100 MG CAP PO SCH ×4 (02:44→21:58)
[2019-05-01] MEDS: CHLORHEXIDINE GLUCONATE 15 ML CUP MUCOUS MEM SCH ×3 (02:45→21:58)
[2019-05-01 03:40] LABS: Appearance,Urine Cloudy (Clear); Bilirubin,Urine Negative (Negative); Blood,Urine Large (Negative); Budding Yeast,Urine Rare /hpf; Color,Urine Yellow; Glucose,Urine (UA) Negative (Negative); Ketones,Urine Negative (Negative); Leukocyte Esterase,Urine Large (Negative); Nitrite,Urine Negative (Negative); Protein,Urine 1+ (Negative); RBC,Urine >182 /hpf (0-5); Specific Gravity,Urine 1.017 (1.001-1.035); Squamous Epithelial Cell,Urine <1 /hpf (0-4); Urobilinogen,Urine <2.0 mg/dL (<2.0)
[2019-05-01] MEDS: SODIUM CHLORIDE 0.9% 1,000 ML IV SCH ×3 (05:14→15:48)
[2019-05-01 05:29] LABS: HGB 11.9 gm/dL (13.0-17.5); MCH 30.2 pg (25.0-35.0); MCHC 32.2 g/dL (31.0-37.0); MCV 93.9 fL (80.0-100.0); Mean Platelet Volume 9.5; Platelet Count 136 k/uL (150-450); RBC 3.94 m/uL (4.30-5.90); RDW 15.3 % (11.5-15.5); WBC 5.8 k/uL (3.8-10.6)
[2019-05-01 05:37] LABS: Calcium 8.2 mg/dL (8.4-10.2); Phosphorus 6.8 mg/dL (2.5-4.5); Potassium 4.4 mmol/L (3.5-5.1); Total Bilirubin 0.4 mg/dL (0.2-1.3); Total Protein 5.6 g/dL (6.3-8.2)
[2019-05-01 05:51] LABS: Anisocytosis (M) Present; Band Neutrophils % 16 %; Lymphocytes # (M) 0.35 k/uL (1.0-4.8); Monocytes # (M) 0.35 k/uL (0-1.0); Neutrophils % (M) 72 %; Nucleated Red Blood Cells 0 /100 WBC (0-0); Total Cells Counted 100
[2019-05-01 05:52] LABS: Hypochromasia (M) Present
[2019-05-01 07:30] LABS: ABG Base Excess -6.2 mmol/L; ABG HCO3 20 mmol/L (21-25); ABG Oxygen Saturation 96.1 % (94-97); ABG PCO2 40 mmHg (35-45); ABG PH 7.31 (7.35-7.45); ABG PO2 92 mmHg (83-108); ABG TCO2 21 mmol/L (19-24); Allen Test Performed? Yes
[2019-05-01] MEDS: NOREPINEPHRINE 4 MG in SODIUM CHLORIDE 0.9% 250 ML IV SCH ×3 (07:37→19:52)
[2019-05-01] MEDS: ISOSORBIDE MONONITRATE ER 30 MG TAB.ER.24H PO SCH (08:02)
[2019-05-01] MEDS: CARVEDILOL 12.5 MG TAB PO SCH ×2 (08:02→15:36)
--- NOTE | 2019-05-01 08:12 | XR ---
EXAMINATION TYPE: XR chest 1V DATE OF EXAM: 05/01/2019 COMPARISON: 04/30/[address] 04/24/2019 HISTORY: 68-year-old male intubated TECHNIQUE: Single frontal view of the chest is obtained. FINDINGS: ET tube is satisfactory. NG tube courses below the diaphragm. Curvature at the thoracolumbar junction may be positional or due to scoliosis. There is some patient rotation in addition accentuating the t ortuous/ectatic thoracic aorta. Heart mildly enlarged. Patchy airspace opacity throughout the right l earline slightly increased. IMPRESSION: 1. Some patient rotation and curvature accentuating the known aneurysm of the thoracic aorta. Measuri ng 4.5 cm for both ascending and upper descending aorta as measured on the 04/24/2019 exam. 2. Increasing patchy airspace disease throughout the right lung.
[2019-05-01] MEDS: TAMSULOSIN 0.4 MG CAP.ER.24H PO SCH (08:36)
[2019-05-01] MEDS: ALLOPURINOL 100 MG TAB PO SCH (08:37)
[2019-05-01] MEDS: ACYCLOVIR SODIUM 1,000 MG in SODIUM CHLORIDE 0.9% 250 ML IVPB SCH (08:37)
[2019-05-01] MEDS: ASCORBIC ACID 500 MG TAB PO SCH (08:37)
[2019-05-01] MEDS: DULoxetine HCL 60 MG CAPSULE.DR PO SCH (08:37)
[2019-05-01] MEDS: ENOXAPARIN 30 MG/0.3 ML SYRINGE SQ SCH (08:41)
[2019-05-01] MEDS: THIAMINE 100 MG TAB PO SCH (08:43)
[2019-05-01] MEDS: ZINC SULFATE 220 MG CAP PO SCH (08:45)
[2019-05-01] MEDS: VITAMIN A 10,000 UNIT CAPSULE PO SCH (08:45)
[2019-05-01] MEDS ORDERED: FAMOTIDINE 20 MG/2 ML VIAL IV SCH (09:00)
--- NOTE | 2019-05-01 09:33 | PN ---
PROGRESS NOTE This is a 68-year-old gentleman who was initially admitted to hospital with chest pain that was sharp, atypical, possibly musculoskeletal. An echocardiogram showed worsening LV function and the plan was to investigate him as outpatient after he was discharged home. Yesterday while on the floor, patient developed respiratory arrest and had been admitted to hospital. Patient has had bouts of confusion and mental status changes and also had low-grade fever. He had been evaluated by ID and Neurology. They could not perform an LP on him. The patient also had bouts of hypotension. Currently he is intubated on vent and is requiring Levophed to keep up his blood pressure. He is on large doses of Levophed. We have been asked to see him in the ICU. Patient had a chest x-ray yesterday that revealed diffuse airspace disease. He had a CT scan of the brain that showed age-related changes and was stable. His labs showed a hemoglobin of 11.9, potassium is 4.4. His creatinine is elevated, but it was high to start with at 2.2 and had gone up to 3.6 on this admission. Nephrology is on the case. On exam today he is afebrile. Heart rate is 70 beats per minute. Blood pressure is 101/50, respiratory rate is 18. Chest exam reveals diminished air entry at the bases. Heart exam reveals first and second heart sounds. No gallop. Abdomen is soft. Exam of the extremities reveals trace edema. Peripheral pulses are felt. The patient had an echocardiogram on this admission that showed an ejection fraction EF of 25%-30% with normal RV systolic pressure. ASSESSMENT: 1. Atypical chest pain. 2. Respiratory failure. The exact etiology is unclear. 3. Confusional state. 4. Cardiomyopathy. 5. Altered mental status. 6. History of obstructive sleep apnea. 7. History of monoclonal gammopathy. 8. Chronic renal insufficiency. 9. History of substance abuse. 10.Hypotension. PLAN: Continue with the supportive care. Hold the beta blockers at this time given the hypotension. I do not believe the respiratory failure that the patient developed is cardiac in origin. No further cardiac workup at this time. Thank you for allowing us to participate in this gentleman. MMODL / IJN: [id number] /
--- NOTE | 2019-05-01 10:39 | P.PN ---
Subjective Progress Note Date: 05/01/19 Principal diagnosis: AMS Coded d/t respiratory arrest. Now intubated and sedated in ICU. Etiology unclear. Patient non-communicative. Objective - Vital Signs Vital signs: Vital Signs Temp 98.9 F 05/01/19 08:00 Pulse 68 05/01/19 10:00 Resp 18 05/01/19 10:00 BP 97/61 05/01/19 10:00 Pulse Ox 94 L 05/01/19 10:00 Intake & Output 04/30/19 05/01/19 05/01/19 18:59 06:59 18:59 Intake Total 50 2393.241 933.751 Output Total 550 335 175 Balance -500 2058.241 758.751 Intake: IV 50 2130 550 Acyclovir Sodium 1,000 mg 250 In Sodium Chloride 0.9% 250 ml @ 270 mls/hr IVPB Q24HR [facility] Rx#:[id number] Piperacillin-Tazobactam 3 50 .375 gm In Sodium Chloride 0.9% 100 ml @ 25 mls/hr IVPB Q8H [facility] Rx#: [id number] Sodium Chloride 0.9% 1, 2130 250 000 ml @ 125 mls/hr IV . Q8H [facility] Rx#:[id number] Intake, IV Titration 263.241 263.751 Amount Norepinephrine 4 mg In 156.303 176.237 Sodium Chloride 0.9% 250 ml @ 0.05 MCG/KG/MIN 15. 735 mls/hr IV .Q16H9M [facility] Rx#:[id number] Piperacillin-Tazobactam 3 100 .375 gm In Sodium Chloride 0.9% 100 ml @ 25 mls/hr IVPB Q8H [facility] Rx#: [id number] Propofol 1,000 mg In 6.938 87.514 Empty Bag 1 bag @ Titrate IV .Q0M [facility] Rx#: [id number] Other 120 Output: Urine 550 335 175 Other: Voiding Method Incontinent Indwelling Catheter # Voids 0 # Bowel Movements 0 ABP, PAP, CO, CI - Last Documented Arterial Blood Pressure 86/50 - Exam Gen NAD Intubated and sedated on Propofol MS GCS 3 CN PERRL -Doll's +Corneal's +Grimace +Cough Motor Normal bulk/tone No tremors or other adventitious movements No spontaneous motor movements Sens No response to nailbed stim x4 Coord Unable to test DTRs 1+/4 sym throughout Toes mute bilaterally no ankle clonus Gait Cannot test due to intubation/sedation - Labs CBC & Chem 7: 05/01/19 05:06 05/01/19 05:06 Labs: Abnormal Lab Results - Last 24 Hours (Table) 04/29/19 04/29/19 04/30/19 Range/Units 22:53 22:53 10:58 RBC (4.30-5.90) m/uL Hgb (13.0-17.5) gm/dL Hct (39.0-53.0) % MCHC (31.0-37.0) g/dL Plt Count (150-450) k/uL Lymphocytes # (1.0-4.8) k/uL Lymphocytes # (Manual) (1.0-4.8) k/uL D-Dimer (<0.60) mg/L FEU ABG pH (7.35-7.45) ABG pCO2 (35-45) mmHg ABG pO2 (83-108) mmHg ABG HCO3 (21-25) mmol/L ABG Total CO2 (19-24) mmol/L ABG O2 Saturation (94-97) % Sodium (137-145) mmol/L Chloride 110 H (98-107) mmol/L Carbon Dioxide 20 L (22-30) mmol/L BUN 63 H (9-20) mg/dL Creatinine 3.42 H (0.66-1.25) mg/dL Glucose 107 H (74-99) mg/dL POC Glucose (mg/dL) (75-99) mg/dL Calcium (8.4-10.2) mg/dL Phosphorus (2.5-4.5) mg/dL Magnesium (1.6-2.3) mg/dL ALT 17 L (21-72) U/L Creatine Kinase 51 L (55-170) U/L Total Creatine Kinase (55-170) U/L Total Protein 6.1 L (6.3-8.2) g/dL Albumin 3.4 L (3.5-5.0) g/dL Procalcitonin 0.29 H (0.02-0.09) ng/mL Urine Protein (Negative) Urine Blood (Negative) Ur Leukocyte Esterase (Negative) Urine RBC (0-5) /hpf Urine WBC (0-5) /hpf Urine WBC Clumps (None) /hpf Urine Yeast (Budding) (None) /hpf HSV I IgG Interpret POSITIVE H (NEGATIVE) 04/30/19 04/30/19 04/30/19 Range/Units 10:58 13:36 21:34 RBC 3.74 L 3.84 L (4.30-5.90) m/uL Hgb 11.2 L 11.4 L (13.0-17.5) gm/dL Hct 35.5 L 37.0 L (39.0-53.0) % MCHC 30.7 L (31.0-37.0) g/dL Plt Count 120 L 107 L (150-450) k/uL Lymphocytes # 0.3 L (1.0-4.8) k/uL Lymphocytes # (Manual) (1.0-4.8) k/uL D-Dimer (<0.60) mg/L FEU ABG pH 7.30 L (7.35-7.45) ABG pCO2 48 H (35-45) mmHg ABG pO2 70 L (83-108) mmHg ABG HCO3 (21-25) mmol/L ABG Total CO2 25 H (19-24) mmol/L ABG O2 Saturation 92.0 L (94-97) % Sodium (137-145) mmol/L Chloride (98-107) mmol/L Carbon Dioxide (22-30) mmol/L BUN (9-20) mg/dL Creatinine (0.66-1.25) mg/dL Glucose (74-99) mg/dL POC Glucose (mg/dL) (75-99) mg/dL Calcium (8.4-10.2) mg/dL Phosphorus (2.5-4.5) mg/dL Magnesium (1.6-2.3) mg/dL ALT (21-72) U/L Creatine Kinase (55-170) U/L Total Creatine Kinase (55-170) U/L Total Protein (6.3-8.2) g/dL Albumin (3.5-5.0) g/dL Procalcitonin (0.02-0.09) ng/mL Urine Protein (Negative) Urine Blood (Negative) Ur Leukocyte Esterase (Negative) Urine RBC (0-5) /hpf Urine WBC (0-5) /hpf Urine WBC Clumps (None) /hpf Urine Yeast (Budding) (None) /hpf HSV I IgG Interpret (NEGATIVE) 04/30/19 04/30/19 04/30/19 Range/Units 21:34 21:34 21:34 RBC (4.30-5.90) m/uL Hgb (13.0-17.5) gm/dL Hct (39.0-53.0) % MCHC (31.0-37.0) g/dL Plt Count (150-450) k/uL Lymphocytes # (1.0-4.8) k/uL Lymphocytes # (Manual) (1.0-4.8) k/uL D-Dimer 1.30 H (<0.60) mg/L FEU ABG pH (7.35-7.45) ABG pCO2 (35-45) mmHg ABG pO2 (83-108) mmHg ABG HCO3 (21-25) mmol/L ABG Total CO2 (19-24) mmol/L ABG O2 Saturation (94-97) % Sodium 146 H (137-145) mmol/L Chloride 112 H (98-107) mmol/L Carbon Dioxide (22-30) mmol/L BUN 67 H (9-20) mg/dL Creatinine 3.53 H (0.66-1.25) mg/dL Glucose (74-99) mg/dL POC Glucose (mg/dL) (75-99) mg/dL Calcium 8.1 L (8.4-10.2) mg/dL Phosphorus 6.0 H (2.5-4.5) mg/dL Magnesium 3.1 H (1.6-2.3) mg/dL ALT 15 L (21-72) U/L Creatine Kinase (55-170) U/L Total Creatine Kinase 38 L (55-170) U/L Total Protein 5.6 L (6.3-8.2) g/dL Albumin 3.0 L (3.5-5.0) g/dL Procalcitonin (0.02-0.09) ng/mL Urine Protein (Negative) Urine Blood (Negative) Ur Leukocyte Esterase (Negative) Urine RBC (0-5) /hpf Urine WBC (0-5) /hpf Urine WBC Clumps (None) /hpf Urine Yeast (Budding) (None) /hpf HSV I IgG Interpret (NEGATIVE) 04/30/19 04/30/19 05/01/19 Range/Units 22:01 22:37 03:15 RBC (4.30-5.90) m/uL Hgb (13.0-17.5) gm/dL Hct (39.0-53.0) % MCHC (31.0-37.0) g/dL Plt Count (150-450) k/uL Lymphocytes # (1.0-4.8) k/uL Lymphocytes # (Manual) (1.0-4.8) k/uL D-Dimer (<0.60) mg/L FEU ABG pH 7.27 L (7.35-7.45) ABG pCO2 50 H (35-45) mmHg ABG pO2 158 H (83-108) mmHg ABG HCO3 (21-25) mmol/L ABG Total CO2 (19-24) mmol/L ABG O2 Saturation 97.9 H (94-97) % Sodium (137-145) mmol/L Chloride (98-107) mmol/L Carbon Dioxide (22-30) mmol/L BUN (9-20) mg/dL Creatinine (0.66-1.25) mg/dL Glucose (74-99) mg/dL POC Glucose (mg/dL) 107 H (75-99) mg/dL Calcium (8.4-10.2) mg/dL Phosphorus (2.5-4.5) mg/dL Magnesium (1.6-2.3) mg/dL ALT (21-72) U/L Creatine Kinase (55-170) U/L Total Creatine Kinase (55-170) U/L Total Protein (6.3-8.2) g/dL Albumin (3.5-5.0) g/dL Procalcitonin (0.02-0.09) ng/mL Urine Protein 1+ H (Negative) Urine Blood Large H (Negative) Ur Leukocyte Esterase Large H (Negative) Urine RBC >182 H (0-5) /hpf Urine WBC 52 H (0-5) /hpf Urine WBC Clumps Moderate H (None) /hpf Urine Yeast (Budding) Rare H (None) /hpf HSV I IgG Interpret (NEGATIVE) 05/01/19 05/01/1919 Range/Units 05:06 05:06 07:22 RBC 3.94 L (4.30-5.90) m/uL Hgb 11.9 L (13.0-17.5) gm/dL Hct 37.0 L (39.0-53.0) % MCHC (31.0-37.0) g/dL Plt Count 136 L (150-450) k/uL Lymphocytes # (1.0-4.8) k/uL Lymphocytes # (Manual) 0.35 L (1.0-4.8) k/uL D-Dimer (<0.60) mg/L FEU ABG pH 7.31 L (7.35-7.45) ABG pCO2 (35-45) mmHg ABG pO2 (83-108) mmHg ABG HCO3 20 L (21-25) mmol/L ABG Total CO2 (19-24) mmol/L ABG O2 Saturation (94-97) % Sodium (137-145) mmol/L Chloride 114 H (98-107) mmol/L Carbon Dioxide 19 L (22-30) mmol/L BUN 64 H (9-20) mg/dL Creatinine 3.64 H (0.66-1.25) mg/dL Glucose (74-99) mg/dL POC Glucose (mg/dL) (75-99) mg/dL Calcium 8.2 L (8.4-10.2) mg/dL Phosphorus 6.8 H (2.5-4.5) mg/dL Magnesium 3.0 H (1.6-2.3) mg/dL ALT 20 L (21-72) U/L Creatine Kinase (55-170) U/L Total Creatine Kinase (55-170) U/L Total Protein 5.6 L (6.3-8.2) g/dL Albumin 3.0 L (3.5-5.0) g/dL Procalcitonin (0.02-0.09) ng/mL Urine Protein (Negative) Urine Blood (Negative) Ur Leukocyte Esterase (Negative) Urine RBC (0-5) /hpf Urine WBC (0-5) /hpf Urine WBC Clumps (None) /hpf Urine Yeast (Budding) (None) /hpf HSV I IgG Interpret (NEGATIVE) Microbiology - Last 24 Hours (Table) 04/30/19 23:13 Gram Stain - Preliminary Sputum Sputum Culture - Preliminary 04/25/19 18:38 Blood Culture - Preliminary Blood No Growth after 120 hours 04/25/19 17:50 Blood Culture - Preliminary Blood No Growth after 120 hours Assessment and Plan Assessment: Altered mental status, likely multifactorial. Cannot r/o watershed ischemic infarcts due to hypotensive episodes or encephalitis. Plan: -EEG this pm -RISK MANAGEMENT MANAGER to get in touch with fluoro and hope to be able to obtain CSF now that he is sedated -On acyclovir and ABX per ID who is following -To r/o watershed infarcts given his h/o hypotension, would need MRI Brain, which we should consider if CSF and EEG unrevealing -Also concerns about metastatic disease. Pulmonology following. -Acute on chronic renal failure. Nephrology following. -Will follow up. -d/w ICU staff. All questions answered. Thank you again for this consultation. Please call with ?. Time with Patient: Greater than 30 (Time spent in direct patient care and coordination of care: 35 minutes)
--- NOTE | 2019-05-01 10:46 | P.PN ---
Subjective Patient is seen in follow-up for acute kidney injury on chronic kidney disease. Patient has chronic kidney disease stage III with baseline creatinine in the range of 2-2.3 secondary to nephrosclerosis. Creatinine peaked at 3.84 this admission and is 3.64 today. Yesterday the patient was noted to be unresponsive. He was subsequently intubated and transferred to the intensive care unit. He is currently on 10 mics of Levophed. He is nonoliguric. Currently intubated and sedated. Vital signs are stable. General: The patient appeared well nourished and normally developed. HEENT: Head exam is unremarkable. Neck is without jugular venous distension. Intubated. LUNGS: Lungs are clear to auscultation and percussion. Breath sounds decreased. HEART: Rate and Rhythm are regular. First and second heart sounds normal. No murmurs, rubs or gallops. ABDOMEN: Abdominal exam reveals normal bowel sounds. Non-tender and non- distended. EXTREMITITES: No clubbing, cyanosis, or edema. Objective - Vital Signs Vital signs: Vital Signs Temp 98.9 F 05/01/19 08:00 Pulse 68 05/01/19 10:00 Resp 18 05/01/19 10:00 BP 97/61 05/01/19 10:00 Pulse Ox 94 L 05/01/19 10:00 Intake & Output 04/30/19 05/01/19 05/01/19 18:59 06:59 18:59 Intake Total 50 2393.241 933.751 Output Total 550 335 175 Balance -500 2058.241 758.751 Intake: IV 50 2130 550 Acyclovir Sodium 1,000 mg 250 In Sodium Chloride 0.9% 250 ml @ 270 mls/hr IVPB Q24HR [facility] Rx#:[id number] Piperacillin-Tazobactam 3 50 .375 gm In Sodium Chloride 0.9% 100 ml @ 25 mls/hr IVPB Q8H [facility] Rx#: [id number] Sodium Chloride 0.9% 1, 2130 250 000 ml @ 125 mls/hr IV . Q8H [facility] Rx#:[id number] Intake, IV Titration 263.241 263.751 Amount Norepinephrine 4 mg In 156.303 176.237 Sodium Chloride 0.9% 250 ml @ 0.05 MCG/KG/MIN 15. 735 mls/hr IV .Q16H9M [facility] Rx#:[id number] Piperacillin-Tazobactam 3 100 .375 gm In Sodium Chloride 0.9% 100 ml @ 25 mls/hr IVPB Q8H [facility] Rx#: [id number] Propofol 1,000 mg In 6.938 87.514 Empty Bag 1 bag @ Titrate IV .Q0M [facility] Rx#: [id number] Other 120 Output: Urine 550 335 175 Other: Voiding Method Incontinent Indwelling Catheter # Voids 0 # Bowel Movements 0 ABP, PAP, CO, CI - Last Documented Arterial Blood Pressure 86/50 - Labs CBC & Chem 7: 05/01/19 05:06 05/01/19 05:06 Labs: Abnormal Lab Results - Last 24 Hours (Table) 04/29/19 04/29/19 04/30/19 Range/Units 22:53 22:53 10:58 RBC (4.30-5.90) m/uL Hgb (13.0-17.5) gm/dL Hct (39.0-53.0) % MCHC (31.0-37.0) g/dL Plt Count (150-450) k/uL Lymphocytes # (1.0-4.8) k/uL Lymphocytes # (Manual) (1.0-4.8) k/uL D-Dimer (<0.60) mg/L FEU ABG pH (7.35-7.45) ABG pCO2 (35-45) mmHg ABG pO2 (83-108) mmHg ABG HCO3 (21-25) mmol/L ABG Total CO2 (19-24) mmol/L ABG O2 Saturation (94-97) % Sodium (137-145) mmol/L Chloride 110 H (98-107) mmol/L Carbon Dioxide 20 L (22-30) mmol/L BUN 63 H (9-20) mg/dL Creatinine 3.42 H (0.66-1.25) mg/dL Glucose 107 H (74-99) mg/dL POC Glucose (mg/dL) (75-99) mg/dL Calcium (8.4-10.2) mg/dL Phosphorus (2.5-4.5) mg/dL Magnesium (1.6-2.3) mg/dL ALT 17 L (21-72) U/L Creatine Kinase 51 L (55-170) U/L Total Creatine Kinase (55-170) U/L Total Protein 6.1 L (6.3-8.2) g/dL Albumin 3.4 L (3.5-5.0) g/dL Procalcitonin 0.29 H (0.02-0.09) ng/mL Urine Protein (Negative) Urine Blood (Negative) Ur Leukocyte Esterase (Negative) Urine RBC (0-5) /hpf Urine WBC (0-5) /hpf Urine WBC Clumps (None) /hpf Urine Yeast (Budding) (None) /hpf HSV I IgG Interpret POSITIVE H (NEGATIVE) 04/30/19 04/30/19 04/30/19 Range/Units 10:58 13:36 21:34 RBC 3.74 L 3.84 L (4.30-5.90) m/uL Hgb 11.2 L 11.4 L (13.0-17.5) gm/dL Hct 35.5 L 37.0 L (39.0-53.0) % MCHC 30.7 L (31.0-37.0) g/dL Plt Count 120 L 107 L (150-450) k/uL Lymphocytes # 0.3 L (1.0-4.8) k/uL Lymphocytes # (Manual) (1.0-4.8) k/uL D-Dimer (<0.60) mg/L FEU ABG pH 7.30 L (7.35-7.45) ABG pCO2 48 H (35-45) mmHg ABG pO2 70 L (83-108) mmHg ABG HCO3 (21-25) mmol/L ABG Total CO2 25 H (19-24) mmol/L ABG O2 Saturation 92.0 L (94-97) % Sodium (137-145) mmol/L Chloride (98-107) mmol/L Carbon Dioxide (22-30) mmol/L BUN (9-20) mg/dL Creatinine (0.66-1.25) mg/dL Glucose (74-99) mg/dL POC Glucose (mg/dL) (75-99) mg/dL Calcium (8.4-10.2) mg/dL Phosphorus (2.5-4.5) mg/dL Magnesium (1.6-2.3) mg/dL ALT (21-72) U/L Creatine Kinase (55-170) U/L Total Creatine Kinase (55-170) U/L Total Protein (6.3-8.2) g/dL Albumin (3.5-5.0) g/dL Procalcitonin (0.02-0.09) ng/mL Urine Protein (Negative) Urine Blood (Negative) Ur Leukocyte Esterase (Negative) Urine RBC (0-5) /hpf Urine WBC (0-5) /hpf Urine WBC Clumps (None) /hpf Urine Yeast (Budding) (None) /hpf HSV I IgG Interpret (NEGATIVE) 04/30/19 04/30/19 04/30/19 Range/Units 21:34 21:34 21:34 RBC (4.30-5.90) m/uL Hgb (13.0-17.5) gm/dL Hct (39.0-53.0) % MCHC (31.0-37.0) g/dL Plt Count (150-450) k/uL Lymphocytes # (1.0-4.8) k/uL Lymphocytes # (Manual) (1.0-4.8) k/uL D-Dimer 1.30 H (<0.60) mg/L FEU ABG pH (7.35-7.45) ABG pCO2 (35-45) mmHg ABG pO2 (83-108) mmHg ABG HCO3 (21-25) mmol/L ABG Total CO2 (19-24) mmol/L ABG O2 Saturation (94-97) % Sodium 146 H (137-145) mmol/L Chloride 112 H (98-107) mmol/L Carbon Dioxide (22-30) mmol/L BUN 67 H (9-20) mg/dL Creatinine 3.53 H (0.66-1.25) mg/dL Glucose (74-99) mg/dL POC Glucose (mg/dL) (75-99) mg/dL Calcium 8.1 L (8.4-10.2) mg/dL Phosphorus 6.0 H (2.5-4.5) mg/dL Magnesium 3.1 H (1.6-2.3) mg/dL ALT 15 L (21-72) U/L Creatine Kinase (55-170) U/L Total Creatine Kinase 38 L (55-170) U/L Total Protein 5.6 L (6.3-8.2) g/dL Albumin 3.0 L (3.5-5.0) g/dL Procalcitonin (0.02-0.09) ng/mL Urine Protein (Negative) Urine Blood (Negative) Ur Leukocyte Esterase (Negative) Urine RBC (0-5) /hpf Urine WBC (0-5) /hpf Urine WBC Clumps (None) /hpf Urine Yeast (Budding) (None) /hpf HSV I IgG Interpret (NEGATIVE) 04/30/19 04/30/19 05/01/19 Range/Units 22:01 22:37 03:15 RBC (4.30-5.90) m/uL Hgb (13.0-17.5) gm/dL Hct (39.0-53.0) % MCHC (31.0-37.0) g/dL Plt Count (150-450) k/uL Lymphocytes # (1.0-4.8) k/uL Lymphocytes # (Manual) (1.0-4.8) k/uL D-Dimer (<0.60) mg/L FEU ABG pH 7.27 L (7.35-7.45) ABG pCO2 50 H (35-45) mmHg ABG pO2 158 H (83-108) mmHg ABG HCO3 (21-25) mmol/L ABG Total CO2 (19-24) mmol/L ABG O2 Saturation 97.9 H (94-97) % Sodium (137-145) mmol/L Chloride (98-107) mmol/L Carbon Dioxide (22-30) mmol/L BUN (9-20) mg/dL Creatinine (0.66-1.25) mg/dL Glucose (74-99) mg/dL POC Glucose (mg/dL) 107 H (75-99) mg/dL Calcium (8.4-10.2) mg/dL Phosphorus (2.5-4.5) mg/dL Magnesium (1.6-2.3) mg/dL ALT (21-72) U/L Creatine Kinase (55-170) U/L Total Creatine Kinase (55-170) U/L Total Protein (6.3-8.2) g/dL Albumin (3.5-5.0) g/dL Procalcitonin (0.02-0.09) ng/mL Urine Protein 1+ H (Negative) Urine Blood Large H (Negative) Ur Leukocyte Esterase Large H (Negative) Urine RBC >182 H (0-5) /hpf Urine WBC 52 H (0-5) /hpf Urine WBC Clumps Moderate H (None) /hpf Urine Yeast (Budding) Rare H (None) /hpf HSV I IgG Interpret (NEGATIVE) 05/01/19 05/01/19 05/01/19 Range/Units 05:06 05:06 07:22 RBC 3.94 L (4.30-5.90) m/uL Hgb 11.9 L (13.0-17.5) gm/dL Hct 37.0 L (39.0-53.0) % MCHC (31.0-37.0) g/dL Plt Count 136 L (150-450) k/uL Lymphocytes # (1.0-4.8) k/uL Lymphocytes # (Manual) 0.35 L (1.0-4.8) k/uL D-Dimer (<0.60) mg/L FEU ABG pH 7.31 L (7.35-7.45) ABG pCO2 (35-45) mmHg ABG pO2 (83-108) mmHg ABG HCO3 20 L (21-25) mmol/L ABG Total CO2 (19-24) mmol/L ABG O2 Saturation (94-97) % Sodium (137-145) mmol/L Chloride 114 H (98-107) mmol/L Carbon Dioxide 19 L (22-30) mmol/L BUN 64 H (9-20) mg/dL Creatinine 3.64 H (0.66-1.25) mg/dL Glucose (74-99) mg/dL POC Glucose (mg/dL) (75-99) mg/dL Calcium 8.2 L (8.4-10.2) mg/dL Phosphorus 6.8 H (2.5-4.5) mg/dL Magnesium 3.0 H (1.6-2.3) mg/dL ALT 20 L (21-72) U/L Creatine Kinase (55-170) U/L Total Creatine Kinase (55-170) U/L Total Protein 5.6 L (6.3-8.2) g/dL Albumin 3.0 L (3.5-5.0) g/dL Procalcitonin (0.02-0.09) ng/mL Urine Protein (Negative) Urine Blood (Negative) Ur Leukocyte Esterase (Negative) Urine RBC (0-5) /hpf Urine WBC (0-5) /hpf Urine WBC Clumps (None) /hpf Urine Yeast (Budding) (None) /hpf HSV I IgG Interpret (NEGATIVE) Microbiology - Last 24 Hours (Table) 04/30/19 23:13 Gram Stain - Preliminary Sputum Sputum Culture - Preliminary 04/25/19 18:38 Blood Culture - Preliminary Blood No Growth after 120 hours 04/25/19 17:50 Blood Culture - Preliminary Blood No Growth after 120 hours Assessment and Plan Plan: Assessment: 1. Acute kidney injury secondary to ATN secondary to infection and hypotension. UA is quite benign. Creatinine peaked at 3.84 this admission - 3.64 today. No evidence of hydronephrosis noted on CAT scan. 2. Urinary retention status post Huerta catheter placement. 3. Encephalopathy. Concern for encephalitis. Infectious disease following. 4. Chronic kidney disease stage III with baseline creatinine in the range of 2- 2.3. Etiology is nephrosclerosis. 5. Hypertension with chronic kidney disease. Blood pressure currently low. On Levophed. 6. Metabolic acidosis secondary to JENIFER and IVFs. Plan: Maintain normal saline at 125 mL an hour. Wean vasopressors. Maintain Huerta catheter. Continue to monitor renal function and urine output. Dose of acyclovir to be adjusted for renal function. Monitor bicarb.
[2019-05-01] MEDS ORDERED: SODIUM CHLORIDE 0.9% 500 ML 500 ML IV ONE (11:28)
--- NOTE | 2019-05-01 12:39 | P.PN ---
Subjective Progress Note Date: 05/01/19 Principal diagnosis: Mental status change, exact etiology is not clear. 68-year-old -[place] male patient, was hospitalized because of shortness of breath and chest pain. Currently confused and unable to provide any history. Reviewed the records. My consultation is mainly to comment on the pulmonary nodules that were seen in the CAT scan of the chest. I reviewed the records. The patient has previous history of MGUS. He also has multiple medical problems and comorbidities. He has had previous history of CVA, hypertension, migraine, peripheral neuropathy, TIA, obstructive sleep apnea that improved following her bariatric surgery, chronic stage III kidney disease and the patient has undergone previous one Y gastric bypass surgery for morbid obesity. He also has previous history of smoking in addition to previous history of substance abuse including cocaine and heroin and marijuana. During this current admission, injection was positive for opiates. Chest x-ray was negative. There was cardiomegaly. CAT scan of the brain showed no acute abnormalities. CAT scan of the chest abdomen and pelvis showed only nodules along the pleural surface that has progressed in size and for that reason a pulmonary consultation was requested. Noted the patient also has cardiomyopathy with an ejection fraction of 25-30%. Currently he is delirious. 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 The lung show subpleural nodularity in the left which has progressed and interval. No pleural effusion. There is no other lesion along the left cardiac border that was seen on the previous PET scan. In fact, a PET scan was done regarding the pulmonary nodules back in 02/23/2019 and this was ordered by his primary care physician, Dr. Brian Gallegos, and the PET scan showed a soft tissue density present in the posterior left heart border associated with a SUV of 3.9 and this was somewhat difficult to differentiate as its immediately adjacent to the hypermetabolic hearts. The pleural lesion did not show any activity. On 04/29/2019 patient seen in follow-up on medical surgical floor. He is sedated, he had received some Ativan apparently earlier this morning he was agitated, delirious, attempting to get up out of bed unassisted. He is suspected to be actively withdrawing from alcohol, and he is on CIWA protocol. Remainder pulse ox is 98%, patient is afebrile, hemodynamically patient is stable, blood and urine cultures have shown no growth, today's labs have been reviewed, showing white blood cell count of 6.2, hemoglobin of 11.6, electrolytes were within normal limits, BUN of 61 creatinine is 3.84. Urinalysis was negative, ID service is following, and patient is on Zosyn for there can antibiotic coverage. In view of his delirious state, and altered mentation anesthesia was consulted for lumbar puncture, which is supposed to take place sometime today. Afebrile, product safety associate is at the bedside, hemodynamically patient is stable. Hematology is following. No difficulty breathing, maintain aspiration precautions. Lung sounds reveal some scattered rhonchi Patient was reevaluated today on 05/01/2019, he is now in the ICU on mechanical ventilation. We were actually seeing the patient for subpleural pulmonary nodules, and we felt that these should be addressed on an outpatient basis once his mental status clears. Patient continues to have issues with his mental status and confusion, and he was having intermittent episodes of agitations. Could not have lumbar puncture done by anesthesia, and apparently last night his condition deteriorated, patient went into hypoxic and hypercapnic respiratory failure requiring intubation and mechanical ventilation. He was also noted to be hypotensive requiring norepinephrine presently at 0.14 mcg/kg/m and he is on propofol at 75 mcg/kg/m. His ventilator settings are assist control rate of 18 tidal volume of 500 FiO2 of 55% and PEEP is 5. ABG showed a pO2 of 92 pCO2 of 40 0 pH of 7.31. CBC is relatively normal. Basic metabolic profile is relatively normal. Renal functioning is abnormal with a BUN of 64 creatinine of 3.64, being followed by nephrology. His ABG yesterday post intubation showed a pO2 of 158 pCO2 of 50 pH of 7.27 which clearly indicates that the patient dev eloped possibly a combined picture of hypoxic and hypercapnic respiratory failure. His chest x-ray is showing significant airspace disease involving the right lung consistent with most likely aspiration pneumonia. Patient remains on Zosyn. And he is being followed by infectious disease. Urinalysis is suggestive of urinary tract infection. Blood cultures have been negative since admission. Urine cultures have been negative so far. Sputum cultures are pending but the Gram stain is showing many gram-positive cocci and rare gram- negative bacilli. Antibiotics diaz, patient was placed on Zosyn and he is also on acyclovir empirically since the lumbar puncture could not be performed yesterday. Seen by neurology on consultation, and seems to be concerned about possible watershed ischemic infarcts due to hypotensive episodes or encephalitis. In the meantime they seem to be agreeable with acyclovir and antibiotics as per infectious disease. The pulmonary nodules noted on the CT of the chest are to be addressed on an outpatient basis or once his mental status issue improves. Objective - Vital Signs Vital signs: Vital Signs Temp 98.8 F 05/01/19 12:00 Pulse 64 05/01/19 12:00 Resp 18 05/01/19 12:00 BP 120/73 05/01/19 12:00 Pulse Ox 95 05/01/19 12:00 Intake & Output 04/30/19 05/01/19 05/01/19 18:59 06:59 18:59 Intake Total 50 2393.241 1071.410 Output Total 550 335 275 Balance -500 2058.241 796.410 Weight 82.6 kg Intake: IV 50 2130 600 Acyclovir Sodium 1,000 mg 250 In Sodium Chloride 0.9% 250 ml @ 270 mls/hr IVPB Q24HR [facility] Rx#:[id number] Piperacillin-Tazobactam 3 100 .375 gm In Sodium Chloride 0.9% 100 ml @ 25 mls/hr IVPB Q8H [facility] Rx#: [id number] Sodium Chloride 0.9% 1, 2130 250 000 ml @ 125 mls/hr IV . Q8H [facility] Rx#:[id number] Intake, IV Titration 263.241 351.410 Amount Norepinephrine 4 mg In 156.303 261.418 Sodium Chloride 0.9% 250 ml @ 0.05 MCG/KG/MIN 15. 735 mls/hr IV .Q16H9M [facility] Rx#:[id number] Piperacillin-Tazobactam 3 100 .375 gm In Sodium Chloride 0.9% 100 ml @ 25 mls/hr IVPB Q8H [facility] Rx#: [id number] Propofol 1,000 mg In 6.938 89.992 Empty Bag 1 bag @ Titrate IV .Q0M [facility] Rx#: [id number] Other 120 Output: Urine 550 335 275 Other: Voiding Method Incontinent Indwelling Catheter # Voids 0 # Bowel Movements 0 ABP, PAP, CO, CI - Last Documented Arterial Blood Pressure 107/53 - Exam Physical Exam: Revealed a 68-year-old male on mechanical ventilation, sedated, on propofol. Head: Atraumatic, normocephalic. HEENT:[Neck is supple.] [No neck masses.] [No thyromegaly.] [No JVD.] Endot deborah tube is intact. Chest: [Crackles and rhonchi noted on the right side, left side is relatively clear. Symmetrical chest expansion noted.] Cardiac Exam: [Normal S1 and S2, no S3 gallop, no murmur.] Abdomen: [Soft, nontender, no megaly, no rebound, no guarding, normal bowel sounds.] Extremities: [No clubbing, no edema, no cyanosis.] Good pulses bilaterally. Neurological Exam: Cannot be assessed, patient is on propofol, sedated, Psychiatric: Could not be assessed. Skin: No rashes. - Labs CBC & Chem 7: 05/01/19 05:06 05/01/19 05:06 Labs: Abnormal Lab Results - Last 24 Hours (Table) 04/29/19 04/30/19 04/30/19 Range/Units 22:53 10:58 10:58 RBC 3.74 L (4.30-5.90) m/uL Hgb 11.2 L (13.0-17.5) gm/dL Hct 35.5 L (39.0-53.0) % MCHC (31.0-37.0) g/dL Plt Count 120 L (150-450) k/uL Lymphocytes # (1.0-4.8) k/uL Lymphocytes # (Manual) (1.0-4.8) k/uL D-Dimer (<0.60) mg/L FEU ABG pH (7.35-7.45) ABG pCO2 (35-45) mmHg ABG pO2 (83-108) mmHg ABG HCO3 (21-25) mmol/L ABG Total CO2 (19-24) mmol/L ABG O2 Saturation (94-97) % Sodium (137-145) mmol/L Chloride 110 H (98-107) mmol/L Carbon Dioxide 20 L (22-30) mmol/L BUN 63 H (9-20) mg/dL Creatinine 3.42 H (0.66-1.25) mg/dL Glucose 107 H (74-99) mg/dL POC Glucose (mg/dL) (75-99) mg/dL Calcium (8.4-10.2) mg/dL Phosphorus (2.5-4.5) mg/dL Magnesium (1.6-2.3) mg/dL ALT 17 L (21-72) U/L Creatine Kinase 51 L (55-170) U/L Total Creatine Kinase (55-170) U/L Total Protein 6.1 L (6.3-8.2) g/dL Albumin 3.4 L (3.5-5.0) g/dL Urine Protein (Negative) Urine Blood (Negative) Ur Leukocyte Esterase (Negative) Urine RBC (0-5) /hpf Urine WBC (0-5) /hpf Urine WBC Clumps (None) /hpf Urine Yeast (Budding) (None) /hpf HSV I IgG Interpret POSITIVE H (NEGATIVE) 04/30/19 04/30/19 04/30/19 Range/Units 13:36 21:34 21:34 RBC 3.84 L (4.30-5.90) m/uL Hgb 11.4 L (13.0-17.5) gm/dL Hct 37.0 L (39.0-53.0) % MCHC 30.7 L (31.0-37.0) g/dL Plt Count 107 L (150-450) k/uL Lymphocytes # 0.3 L (1.0-4.8) k/uL Lymphocytes # (Manual) (1.0-4.8) k/uL D-Dimer (<0.60) mg/L FEU ABG pH 7.30 L (7.35-7.45) ABG pCO2 48 H (35-45) mmHg ABG pO2 70 L (83-108) mmHg ABG HCO3 (21-25) mmol/L ABG Total CO2 25 H (19-24) mmol/L ABG O2 Saturation 92.0 L (94-97) % Sodium 146 H (137-145) mmol/L Chloride 112 H (98-107) mmol/L Carbon Dioxide (22-30) mmol/L BUN 67 H (9-20) mg/dL Creatinine 3.53 H (0.66-1.25) mg/dL Glucose (74-99) mg/dL POC Glucose (mg/dL) (75-99) mg/dL Calcium 8.1 L (8.4-10.2) mg/dL Phosphorus 6.0 H (2.5-4.5) mg/dL Magnesium 3.1 H (1.6-2.3) mg/dL ALT 15 L (21-72) U/L Creatine Kinase (55-170) U/L Total Creatine Kinase (55-170) U/L Total Protein 5.6 L (6.3-8.2) g/dL Albumin 3.0 L (3.5-5.0) g/dL Urine Protein (Negative) Urine Blood (Negative) Ur Leukocyte Esterase (Negative) Urine RBC (0-5) /hpf Urine WBC (0-5) /hpf Urine WBC Clumps (None) /hpf Urine Yeast (Budding) (None) /hpf HSV I IgG Interpret (NEGATIVE) 04/30/19 04/30/19 04/30/19 Range/Units 21:34 21:34 22:01 RBC (4.30-5.90) m/uL Hgb (13.0-17.5) gm/dL Hct (39.0-53.0) % MCHC (31.0-37.0) g/dL Plt Count (150-450) k/uL Lymphocytes # (1.0-4.8) k/uL Lymphocytes # (Manual) (1.0-4.8) k/uL D-Dimer 1.30 H (<0.60) mg/L FEU ABG pH (7.35-7.45) ABG pCO2 (35-45) mmHg ABG pO2 (83-108) mmHg ABG HCO3 (21-25) mmol/L ABG Total CO2 (19-24) mmol/L ABG O2 Saturation (94-97) % Sodium (137-145) mmol/L Chloride (98-107) mmol/L Carbon Dioxide (22-30) mmol/L BUN (9-20) mg/dL Creatinine (0.66-1.25) mg/dL Glucose (74-99) mg/dL POC Glucose (mg/dL) 107 H (75-99) mg/dL Calcium (8.4-10.2) mg/dL Phosphorus (2.5-4.5) mg/dL Magnesium (1.6-2.3) mg/dL ALT (21-72) U/L Creatine Kinase (55-170) U/L Total Creatine Kinase 38 L (55-170) U/L Total Protein (6.3-8.2) g/dL Albumin (3.5-5.0) g/dL Urine Protein (Negative) Urine Blood (Negative) Ur Leukocyte Esterase (Negative) Urine RBC (0-5) /hpf Urine WBC (0-5) /hpf Urine WBC Clumps (None) /hpf Urine Yeast (Budding) (None) /hpf HSV I IgG Interpret (NEGATIVE) 04/30/19 05/01/19 05/01/19 Range/Units 22:37 03:15 05:06 RBC 3.94 L (4.30-5.90) m/uL Hgb 11.9 L (13.0-17.5) gm/dL Hct 37.0 L (39.0-53.0) % MCHC (31.0-37.0) g/dL Plt Count 136 L (150-450) k/uL Lymphocytes # (1.0-4.8) k/uL Lymphocytes # (Manual) 0.35 L (1.0-4.8) k/uL D-Dimer (<0.60) mg/L FEU ABG pH 7.27 L (7.35-7.45) ABG pCO2 50 H (35-45) mmHg ABG pO2 158 H (83-108) mmHg ABG HCO3 (21-25) mmol/L ABG Total CO2 (19-24) mmol/L ABG O2 Saturation 97.9 H (94-97) % Sodium (137-145) mmol/L Chloride (98-107) mmol/L Carbon Dioxide (22-30) mmol/L BUN (9-20) mg/dL Creatinine (0.66-1.25) mg/dL Glucose (74-99) mg/dL POC Glucose (mg/dL) (75-99) mg/dL Calcium (8.4-10.2) mg/dL Phosphorus (2.5-4.5) mg/dL Magnesium (1.6-2.3) mg/dL ALT (21-72) U/L Creatine Kinase (55-170) U/L Total Creatine Kinase (55-170) U/L Total Protein (6.3-8.2) g/dL Albumin (3.5-5.0) g/dL Urine Protein 1+ H (Negative) Urine Blood Large H (Negative) Ur Leukocyte Esterase Large H (Negative) Urine RBC >182 H (0-5) /hpf Urine WBC 52 H (0-5) /hpf Urine WBC Clumps Moderate H (None) /hpf Urine Yeast (Budding) Rare H (None) /hpf HSV I IgG Interpret (NEGATIVE) 05/01/19 05/01/19 Range/Units 05:06 07:22 RBC (4.30-5.90) m/uL Hgb (13.0-17.5) gm/dL Hct (39.0-53.0) % MCHC (31.0-37.0) g/dL Plt Count (150-450) k/uL Lymphocytes # (1.0-4.8) k/uL Lymphocytes # (Manual) (1.0-4.8) k/uL D-Dimer (<0.60) mg/L FEU ABG pH 7.31 L (7.35-7.45) ABG pCO2 (35-45) mmHg ABG pO2 (83-108) mmHg ABG HCO3 20 L (21-25) mmol/L ABG Total CO2 (19-24) mmol/L ABG O2 Saturation (94-97) % Sodium (137-145) mmol/L Chloride 114 H (98-107) mmol/L Carbon Dioxide 19 L (22-30) mmol/L BUN 64 H (9-20) mg/dL Creatinine 3.64 H (0.66-1.25) mg/dL Glucose (74-99) mg/dL POC Glucose (mg/dL) (75-99) mg/dL Calcium 8.2 L (8.4-10.2) mg/dL Phosphorus 6.8 H (2.5-4.5) mg/dL Magnesium 3.0 H (1.6-2.3) mg/dL ALT 20 L (21-72) U/L Creatine Kinase (55-170) U/L Total Creatine Kinase (55-170) U/L Total Protein 5.6 L (6.3-8.2) g/dL Albumin 3.0 L (3.5-5.0) g/dL Urine Protein (Negative) Urine Blood (Negative) Ur Leukocyte Esterase (Negative) Urine RBC (0-5) /hpf Urine WBC (0-5) /hpf Urine WBC Clumps (None) /hpf Urine Yeast (Budding) (None) /hpf HSV I IgG Interpret (NEGATIVE) Microbiology - Last 24 Hours (Table) 05/01/19 03:15 Urine Culture - Preliminary Urine,Voided 04/30/19 23:13 Gram Stain - Preliminary Sputum Sputum Culture - Preliminary 04/25/19 18:38 Blood Culture - Preliminary Blood No Growth after 120 hours 04/25/19 17:50 Blood Culture - Preliminary Blood No Growth after 120 hours Assessment and Plan Assessment: 1 acute hypoxic and hypercapnic respiratory failure secondary to extensive right sided pneumonia, strongly suspect aspiration pneumonia. Patient will remain on Zosyn. And will remain on mechanical ventilation. His hypoventilation and hypercapnia could be related to his underlying mental status and related to sedatives. 2 altered mentation currently under investigation. 3 chest pain, skeletal in nature 4 severe cardiomyopathy with an ejection fraction of 25-30% 5 history of TIA 6 peripheral neuropathy 7 morbidly obesity with a previous Dorian-en-Y gastric bypass surgery 8 obstructive sleep apnea improved with weight loss 9 history of urinary retention requiring straight cathed 10 chronic back pain 11 history of MGUS 12 history of chronic migraine headaches 13 history of stage III chronic kidney disease 14 history of substance abuse including cocaine and heroin and marijuana 15 history of tobacco smoking 16 history of rotator cuff tear 17 acute on chronic kidney injury secondary to ATN secondary to hypotension secondary to septic shock 18 encephalopathy, possible encephalitis, being addressed by infectious disease on the case , also being addressed by neurology on the case. Recommendation: Continue ventilatory support, antibiotics, nutritional support patient is to be started on enteral feeding, GI and DVT prophylaxis, continue empirically Zovirax, lumbar puncture is to be done tomorrow by anesthesia, will adjust antibiotics based on the final culture from the sputum, may even consider bronchoscopy and lavage of the right lung if no specific organism noted from the sputum culture. Critical care time is 40 minutes. Time with Patient: Greater than 30
--- NOTE | 2019-05-01 13:09 | PN ---
PROGRESS NOTE DATE OF SERVICE: 05/01/2019 REASON FOR FOLLOWUP: 1. Possible aspiration pneumonia. 2. Possible encephalitis. INTERVAL HISTORY: The patient did have a significant change in his clinical condition last night. The patient was noticed to be lethargic, hypoxemic. The patient has been resuscitated and intubated and transferred to the ICU, on a low-dose pressor. He was slightly hypothermic last night though he above this morning. FiO2 is currently at 50%. No significant desaturations per the RN. PHYSICAL EXAMINATION: Blood pressure 107/53 with a pulse of 64, temperature 98.8. He is 95% on 50% FiO2. General description is an elderly male lying in bed in no distress. HEENT: Examination show slight pallor, no scleral icterus. Patient orally intubated. LUNGS: Unlabored breathing. Coarse breath sounds at the base bilaterally. HEART: S1, S2. Regular rate and rhythm. ABDOMEN: Soft, no tenderness. EXTREMITIES: No edema of the feet. LABS: Hemoglobin is 11.1, white count 5.8 with a BUN of 64, creatinine 3.64. Urine has been positive. Sputum culture currently pending. Chest x-ray mostly right-sided infiltrates. IMPRESSION AND PLAN: 1. Patient with acute respiratory failure, possible for aspiration pneumonia. Sputum has been obtained. Patient is currently on Zosyn and DuoNeb, adjusted further based on the culture report. Blood cultures will be ordered. 2. Patient with encephalopathy/encephalitis, could not be completed yesterday. Currently on empiric acyclovir as the patient is intubated and sedated, attempted for definite diagnosis. Continue supportive care. MMODL / IJN: [id number] /
--- NOTE | 2019-05-01 15:03 | P.PN ---
Subjective Progress Note Date: 05/01/19 This is a 68-year-old -Tong[place] male patient of Dr. Gallegos with a past medical history of hypertension, migraine headaches, lower extremity neuropathy, TIA in 2008, obstructive sleep apnea resolved after bariatric surgery, gastroesophageal reflux disease, chronic kidney disease stage III, morbid obe sity status post Doiran-en-Y, tobacco use and dependence, remote history of drug use with cocaine, heroin and marijuana. Patient complains of chest pain as well as bilateral shoulder pain that been going on for 4-5 days. He does give history of having Route rotator cuff tears. He complains of chronic low back pain. He states his blood pressure at the office is usually between 120 and 130. Patient presented to [facility] emergency center for evaluation. Temperature 100.8, heart rate 88, blood pressure 178/128. Patient was given nitro bid ointment and Catapres. Blood pressure did drop to 62/42. CBC within normal range, sodium 134, potassium 5.1, chloride 103, CO2 23, BUN 27 creatinine 2.29. Baseline creatinine is in the twos. Blood sugar 129. Troponins of been 0.030, 0.037, 0.022. Urinalysis was negative. Urine drug screen positive for opiates. Chest x-ray shows no acute cardiopulmonary process. Cardiomegaly. Aortic aneurysm. CAT scan of the brain showed no acute abnormality. CT of the chest abdomen and pelvis reveals interval progression of pleural nodules may be due to metastatic disease. Aortic aneurysm. Cardiomegaly. Noncontrast exam. Postop changes. Correlate for possible enteritis. This morning blood pressure is 157/98, pulse ox 95% on room air, afebrile, heart rate 79. Patient has been seen by Dr. Crane and chest pain is noncardiac and has been cleared for discharge. They can do an outpatient stress test. Echo has been obtained and report is pending. 04/26: Patient ran temps up to 102.5 through the night and was started on cef triaxone. The patient states that he did take some pain medicine for back and abdominal pain. Patient is noted to have some left lower quadrant pain. He denies any recent intake of nuts or seeds. No diarrhea. He denies any headache. We will change antibiotics to Zosyn. Blood pressure today is 146/90 which is improved. Cardiology has signed off. Patient will be transferred to [facility] floor without telemetry. Anticipate possible discharge home tomorrow. Echocardiogram reveals EF of 25-30%, mild aortic valve sclerosis, no aortic stenosis, trace mitral regurgitation, mild tricuspid regurgitation, no pulmonary hypertension, trivial pericardial effusion. Patient last followed up with Dr. Rowan in October 2015. At that time, he had a known ejection fraction of 45%. 04/27: Patient's discharge was held today, secondary to his confusion, and fidgetiness, patient's symptom be alert and oriented to situation, per family he lives in a prison house, last alcohol intake was November 23, denies any other social drug uses, Imitrex and posterior on opiates for which he is on hydrocodone, creatinine is elevated currently at 3.39, from a previous number of 2.23, creatinine 56, patient had urinary retention of 700 mL, cath was inserted, thereafter he is fidgetiness and last night was improved, ciwa protocol was initiated, nursing staff has noticed him to be weaker with balance issues, no tremors noted, patient can move all 4 extremities, on examination, no dysarthria noted, no facial droop, no aspirate the events blood pressure of 122/78, heart rate of 57, patient has a temp of 99.8 from a previous PA CAT scan was reviewed, there is interval progression of pleural nodules, may be due to metastatic disease, aortic aneurysm, cardiomegaly, noncontrast exam, postop changes correl ate for possible enteritis patient does not have any diarrhea, CT of the brain shows no hydrocephalus, orbits are stable, inflammatory changes within the maxillary sinuses, IV antibiotics started, consults were made with Dr. Alexander secondary to recurrent fevers, no primary source identified, might need LP, with viral cultureshsv 04/28, patient remains in the room without any safety sees , he seems to be more alert today however he requires Ativan for impulsiveness and agitation, he seems to be oriented to time and place and person, however he gets crepitation off his behaviors from aggressive to being sleepy, nursing staff has held the gabapentin, we will decrease Madison to 7.53-5. LP is planned for the morning, to evaluate encephalitis no change in antibiotic from Dr. Alexander patient has been seen by oncology, and an panel ordered, pulmonary also was consulted, no plans for bronchoscopy as it is not amenable or accessible, no immediate need for CT guided biopsy, as per their recommendation based on a PET/CT done outpatient January 2019 with the posterior left heart border SUV off 3.9 that was difficult to differentiate as it is immediately adjacent to the hyper metabolic cardiac muscl e 04/29: Patient continues to have mental status changes and has a sitter at the bedside. Patient was very confused and trying to get out of bed this morning. He does complain of some headache. Patient is refusing to eat today. Blood pressure is on the lower side for which hydralazine will be discontinued. He is scheduled for LP today. Patient has been followed by Dr. Alexander, pulmonary medicine and oncology. Pulmonary medicine is planning for CT guided needle aspirate biopsy of the subpleural lesion on the left by interventional radiology once patient's mental status has been cleared. I'll repeat lab work reveals white count of 6.2, hemoglobin 11.6, platelet count 128. BUN 61 creatinine 3.84, blood sugar 117. Liver function tests and electrolytes unremarkable. 04/30: Patient has been hypothermic during the night with a rectal temperature of 93.6. Currently heart rate is 57, blood pressure 103/61, pulse ox 98% on room air. TSH 0.871. IgG a IgG IgM within normal limits, SUJATA screen negative. Free [place] 13.2, free lambda 6.57 are both elevated. Albumin PEEP is low at 3.55. Alpha-1 globulins and alpha-2 globulins within normal limits, beta globulins within normal limits, gamma globulins normal limits. No monoclonal paraprotein identified. Patient continues to have significant confusion and LP was attempted this morning but unsuccessful due to patient being uncooperative. We have ordered a CAT scan of the brain that showed a related changes of atrophy and chronic small vessel ischemia. Due to worsening renal function, consult added for nephrology for acute kidney injury. He has started the patient on normal saline at 75 mL per hour. Due to patient's blood pressure being low. We have discontinued amlodipine and when necessary hydralazine and Madison has also been discontinued. A cortisol level ordered for 4 PM. CIWA protocol changed to Ativan half milligram every 4 hours as needed for anxiety/agitation. 05/01: Last evening, A-Team was called as patient was found to have pulse ox of 65% on room air and hypotensive and not responding to sternal rub. Patient was initially placed on a nonrebreather and transferred to the intensive care unit where he has subsequently been intubated and placed on mechanical ventilation. Patient has required norepinephrine. He is currently sedated. Huerta catheter was placed. Patient has been seen by neurology with recommendations for EEG which is being done today. Chest x-ray from yesterday reveals diffuse airspace opacities throughout the right lung which may be inflammatory or infectious. Dr. Alexander has added acyclovir. Repeat lab work reveals white count of 5.8, hemoglobin 11.9, platelet count 136. Sodium 144, potassium 4.4, chloride 114, CO2 19, BUN 64 and creatinine 3.64. Calcium is 8.2, phosphorus 6.8, magnesium 3.0. 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 Urinalysis is cloudy, leukoesterase large, RBCs greater than 182, WBCs 52, WBC clumps moderate, rare yeast. Cortisol level at 10:58 AM was 22 and at 2347. Temperature this morning is normalized to 98.9, pulse 70, blood pressure 101/54. Patient remains intubated and on mechanical ventilation with tidal volume 500, FiO2 55, PEEP 5. Urine output has been 50 mL per hour. He remains on vasopressors. He has not been tried on a sedation holiday today. We will reorder a diagnostic LP to be done tomorrow 24 hours after Lovenox. Objective - Vital Signs Vital signs: Vital Signs Temp 98.2 F 05/01/19 04:00 Pulse 74 05/01/19 07:00 Resp 18 05/01/19 07:00 BP 87/58 05/01/19 06:00 Pulse Ox 95 05/01/19 07:00 Intake & Output 04/30/19 05/01/19 05/01/19 18:59 06:59 18:59 Intake Total 50 2393.241 86.86 Output Total 550 335 Balance -500 2058.241 86.86 Intake: IV 50 2130 Sodium Chloride 0.9% 1, 2130 000 ml @ 125 mls/hr IV . Q8H [facility] Rx#:[id number] Intake, IV Titration 263.241 86.86 Amount Norepinephrine 4 mg In 156.303 86.86 Sodium Chloride 0.9% 250 ml @ 0.05 MCG/KG/MIN 15. 735 mls/hr IV .Q16H9M [facility] Rx#:[id number] Piperacillin-Tazobactam 3 100 .375 gm In Sodium Chloride 0.9% 100 ml @ 25 mls/hr IVPB Q8H [facility] Rx#: [id number] Propofol 1,000 mg In 6.938 Empty Bag 1 bag @ Titrate IV .Q0M [facility] Rx#: [id number] Output: Urine 550 335 Other: Voiding Method Incontinent Indwelling Catheter # Voids 0 # Bowel Movements 0 ABP, PAP, CO, CI - Last Documented Arterial Blood Pressure 98/54 - Exam Review of Systems--unable to obtain due to intubation. - Constitutional General appearance: Present: In ICU bed, intubated and on mechanical ventilation, no acute distress - EENT Eyes: Present: anicteric sclerae, EOMI, dentition normal ENT: Present: NA/AT, normal oropharynx - Neck Neck: Present: normal ROM - Respiratory Respiratory: bilateral: Crackles and rhonchi on the right side negative: diminished, dullness - Cardiovascular Rhythm: regular Heart sounds: normal: S1, S2 Abnormal Heart Sounds: Absent: systolic murmur, diastolic murmur, rub, S3 Gallop, S4 Gallop, click, other - Gastrointestinal General gastrointestinal: Present: normal bowel sounds - Integumentary Integumentary: Present: decreased turgor, normal, no rashes, no wounds - Neurologic Neurologic: Sedated - Musculoskeletal Musculoskeletal: Sedated - Psychiatric Psychiatric: Sedated. - Labs CBC & Chem 7: 05/01/19 05:06 05/01/19 05:06 Labs: Abnormal Lab Results - Last 24 Hours (Table) 04/29/19 04/29/19 04/30/19 Range/Units 22:53 22:53 10:58 RBC (4.30-5.90) m/uL Hgb (13.0-17.5) gm/dL Hct (39.0-53.0) % MCHC (31.0-37.0) g/dL Plt Count (150-450) k/uL Lymphocytes # (1.0-4.8) k/uL Lymphocytes # (Manual) (1.0-4.8) k/uL D-Dimer (<0.60) mg/L FEU ABG pH (7.35-7.45) ABG pCO2 (35-45) mmHg ABG pO2 (83-108) mmHg ABG HCO3 (21-25) mmol/L ABG Total CO2 (19-24) mmol/L ABG O2 Saturation (94-97) % Sodium (137-145) mmol/L Chloride 110 H (98-107) mmol/L Carbon Dioxide 20 L (22-30) mmol/L BUN 63 H (9-20) mg/dL Creatinine 3.42 H (0.66-1.25) mg/dL Glucose 107 H (74-99) mg/dL POC Glucose (mg/dL) (75-99) mg/dL Calcium (8.4-10.2) mg/dL Phosphorus (2.5-4.5) mg/dL Magnesium (1.6-2.3) mg/dL ALT 17 L (21-72) U/L Creatine Kinase 51 L (55-170) U/L Total Creatine Kinase (55-170) U/L Total Protein 6.1 L (6.3-8.2) g/dL Albumin 3.4 L (3.5-5.0) g/dL Procalcitonin 0.29 H (0.02-0.09) ng/mL Urine Protein (Negative) Urine Blood (Negative) Ur Leukocyte Esterase (Negative) Urine RBC (0-5) /hpf Urine WBC (0-5) /hpf Urine WBC Clumps (None) /hpf Urine Yeast (Budding) (None) /hpf HSV I IgG Interpret POSITIVE H (NEGATIVE) 04/30/19 04/30/19 04/30/19 Range/Units 10:58 13:36 21:34 RBC 3.74 L 3.84 L (4.30-5.90) m/uL Hgb 11.2 L 11.4 L (13.0-17.5) gm/dL Hct 35.5 L 37.0 L (39.0-53.0) % MCHC 30.7 L (31.0-37.0) g/dL Plt Count 120 L 107 L (150-450) k/uL Lymphocytes # 0.3 L (1.0-4.8) k/uL Lymphocytes # (Manual) (1.0-4.8) k/uL D-Dimer (<0.60) mg/L FEU ABG pH 7.30 L (7.35-7.45) ABG pCO2 48 H (35-45) mmHg ABG pO2 70 L (83-108) mmHg ABG HCO3 (21-25) mmol/L ABG Total CO2 25 H (19-24) mmol/L ABG O2 Saturation 92.0 L (94-97) % Sodium (137-145) mmol/L Chloride (98-107) mmol/L Carbon Dioxide (22-30) mmol/L BUN (9-20) mg/dL Creatinine (0.66-1.25) mg/dL Glucose (74-99) mg/dL POC Glucose (mg/dL) (75-99) mg/dL Calcium (8.4-10.2) mg/dL Phosphorus (2.5-4.5) mg/dL Magnesium (1.6-2.3) mg/dL ALT (21-72) U/L Creatine Kinase (55-170) U/L Total Creatine Kinase (55-170) U/L Total Protein (6.3-8.2) g/dL Albumin (3.5-5.0) g/dL Procalcitonin (0.02-0.09) ng/mL Urine Protein (Negative) Urine Blood (Negative) Ur Leukocyte Esterase (Negative) Urine RBC (0-5) /hpf Urine WBC (0-5) /hpf Urine WBC Clumps (None) /hpf Urine Yeast (Budding) (None) /hpf HSV I IgG Interpret (NEGATIVE) 04/30/19 04/30/19 04/30/19 Range/Units 21:34 21:34 21:34 RBC (4.30-5.90) m/uL Hgb (13.0-17.5) gm/dL Hct (39.0-53.0) % MCHC (31.0-37.0) g/dL Plt Count (150-450) k/uL Lymphocytes # (1.0-4.8) k/uL Lymphocytes # (Manual) (1.0-4.8) k/uL D-Dimer 1.30 H (<0.60) mg/L FEU ABG pH (7.35-7.45) ABG pCO2 (35-45) mmHg ABG pO2 (83-108) mmHg ABG HCO3 (21-25) mmol/L ABG Total CO2 (19-24) mmol/L ABG O2 Saturation (94-97) % Sodium 146 H (137-145) mmol/L Chloride 112 H (98-107) mmol/L Carbon Dioxide (22-30) mmol/L BUN 67 H (9-20) mg/dL Creatinine 3.53 H (0.66-1.25) mg/dL Glucose (74-99) mg/dL POC Glucose (mg/dL) (75-99) mg/dL Calcium 8.1 L (8.4-10.2) mg/dL Phosphorus 6.0 H (2.5-4.5) mg/dL Magnesium 3.1 H (1.6-2.3) mg/dL ALT 15 L (21-72) U/L Creatine Kinase (55-170) U/L Total Creatine Kinase 38 L (55-170) U/L Total Protein 5.6 L (6.3-8.2) g/dL Albumin 3.0 L (3.5-5.0) g/dL Procalcitonin (0.02-0.09) ng/mL Urine Protein (Negative) Urine Blood (Negative) Ur Leukocyte Esterase (Negative) Urine RBC (0-5) /hpf Urine WBC (0-5) /hpf Urine WBC Clumps (None) /hpf Urine Yeast (Budding) (None) /hpf HSV I IgG Interpret (NEGATIVE) 04/30/19 04/30/19 05/01/19 Range/Units 22:01 22:37 03:15 RBC (4.30-5.90) m/uL Hgb (13.0-17.5) gm/dL Hct (39.0-53.0) % MCHC (31.0-37.0) g/dL Plt Count (150-450) k/uL Lymphocytes # (1.0-4.8) k/uL Lymphocytes # (Manual) (1.0-4.8) k/uL D-Dimer (<0.60) mg/L FEU ABG pH 7.27 L (7.35-7.45) ABG pCO2 50 H (35-45) mmHg ABG pO2 158 H (83-108) mmHg ABG HCO3 (21-25) mmol/L ABG Total CO2 (19-24) mmol/L ABG O2 Saturation 97.9 H (94-97) % Sodium (137-145) mmol/L Chloride (98-107) mmol/L Carbon Dioxide (22-30) mmol/L BUN (9-20) mg/dL Creatinine (0.66-1.25) mg/dL Glucose (74-99) mg/dL POC Glucose (mg/dL) 107 H (75-99) mg/dL Calcium (8.4-10.2) mg/dL Phosphorus (2.5-4.5) mg/dL Magnesium (1.6-2.3) mg/dL ALT (21-72) U/L Creatine Kinase (55-170) U/L Total Creatine Kinase (55-170) U/L Total Protein (6.3-8.2) g/dL Albumin (3.5-5.0) g/dL Procalcitonin (0.02-0.09) ng/mL Urine Protein 1+ H (Negative) Urine Blood Large H (Negative) Ur Leukocyte Esterase Large H (Negative) Urine RBC >182 H (0-5) /hpf Urine WBC 52 H (0-5) /hpf Urine WBC Clumps Moderate H (None) /hpf Urine Yeast (Budding) Rare H (None) /hpf HSV I IgG Interpret (NEGATIVE) 05/01/19 05/01/19 05/01/19 Range/Units 05:06 05:06 07:22 RBC 3.94 L (4.30-5.90) m/uL Hgb 11.9 L (13.0-17.5) gm/dL Hct 37.0 L (39.0-53.0) % MCHC (31.0-37.0) g/dL Plt Count 136 L (150-450) k/uL Lymphocytes # (1.0-4.8) k/uL Lymphocytes # (Manual) 0.35 L (1.0-4.8) k/uL D-Dimer (<0.60) mg/L FEU ABG pH 7.31 L (7.35-7.45) ABG pCO2 (35-45) mmHg ABG pO2 (83-108) mmHg ABG HCO3 20 L (21-25) mmol/L ABG Total CO2 (19-24) mmol/L ABG O2 Saturation (94-97) % Sodium (137-145) mmol/L Chloride 114 H (98-107) mmol/L Carbon Dioxide 19 L (22-30) mmol/L BUN 64 H (9-20) mg/dL Creatinine 3.64 H (0.66-1.25) mg/dL Glucose (74-99) mg/dL POC Glucose (mg/dL) (75-99) mg/dL Calcium 8.2 L (8.4-10.2) mg/dL Phosphorus 6.8 H (2.5-4.5) mg/dL Magnesium 3.0 H (1.6-2.3) mg/dL ALT 20 L (21-72) U/L Creatine Kinase (55-170) U/L Total Creatine Kinase (55-170) U/L Total Protein 5.6 L (6.3-8.2) g/dL Albumin 3.0 L (3.5-5.0) g/dL Procalcitonin (0.02-0.09) ng/mL Urine Protein (Negative) Urine Blood (Negative) Ur Leukocyte Esterase (Negative) Urine RBC (0-5) /hpf Urine WBC (0-5) /hpf Urine WBC Clumps (None) /hpf Urine Yeast (Budding) (None) /hpf HSV I IgG Interpret (NEGATIVE) Microbiology - Last 24 Hours (Table) 04/30/19 23:13 Sputum Culture - Preliminary Sputum 04/25/19 18:38 Blood Culture - Preliminary Blood No Growth after 120 hours 04/25/19 17:50 Blood Culture - Preliminary Blood No Growth after 120 hours Assessment and Plan Plan: 1. Chest pain, most likely musculoskeletal or related to bilateral rotator cuff injuries. Cardiology consult appreciated. Echocardiogram as above. 2. Hypertensive emergency. Patient on Coreg 25 mg twice daily. Patient is now hypotensive and hydralazine oral, amlodipine and IV hydralazine as needed discontinued. 3. Acute enteritis ruled out. 4. Acute metabolic encephalopathy with fever secondary to possible viral encephalitis, LP reordered to be attempted tomorrow, consult Dr. Alexander appreciated. Continue Zosyn and acyclovir. Consult with neurology appreciated. Acute stroke is not been ruled out. 5. Abnormal imaging studies in CT, increasing pleural nodules, possible hypermetabolic lesion posterior to the cardiac border, pulmonary and oncology follow him closely. Pulmonary medicine is planning for CAT scan guided biopsy o iae mental status is clear. 6. Severe cardiomyopathy with EF of 25-30%. Patient previously seen by Dr. Rowan with no follow-up since 2016. At that time known EF of 45. 7. Urinary retention requiring straight cath, 8. Acute kidney injury. Consult with Dr. Burgos added. He has initiated IV fluids 0.9 normal saline. 9. Postobstructive uropathy with renal failure, no hydronephrosis on CT. Patient has been started on Flomax. 10. Acute respiratory failure secondary to acute respiratory arrest requiring intubation and mechanical ventilation. Patient is managed by Dr. Pizarro 11. Acute septic shock secondary to probable viral encephalitis and extensive right-sided pneumonia, possible aspiration pneumonia. Patient has required vasopressors. 12. Possible acute catheter associated urinary tract infection. Continue Zosyn. 13. History of TIA, stable. 14. Gastroesophageal reflux disease. Pepcid. 15. Neuropathy bilateral lower extremities. Gabapentin decreased to 100 mg 3 times daily. 16. History of morbid obesity status post Dorian-en-Y with resolution of sleep apnea with weight loss. 17. Tobacco use and dependence. 18. Chronic back pain, discontinue Madison. 19. GI prophylaxis. Pepcid. 20. DVT prophylaxis. Lovenox. Discharge plan: To be determined. Impression and plan of care have been directed as dictated by the signing physician. Gladys Loyd nurse practitioner acting as scribe for signing physician.
--- NOTE | 2019-05-01 15:24 | EEG ---
ELECTROENCEPHALOGRAM REPORT DATE OF TESTIN05/01/2019. CLINICAL PROBLEM: Altered mental status. Respiratory arrest. EEG was requested to rule out epileptiform activity. TYPE OF RECORDING: Bedside tracing using the 10-20 international electrode placement system. Patient is sedated on propofol at the time of the recording. FINDINGS: The background of this tracing is seen primarily with a delta and occasionally polymorphic theta slowing. Photic stimulation does not elicit a driving response. Hyperventilation is not performed in this recording. There is no sleep architecture seen. There is no background asymmetry, ictal or interictal patterns appreciated. IMPRESSION: This is an abnormal electrographic encephalogram with excessive background slowing suggestive of cerebral dysfunction of any cause. There is no background asymmetry or epileptiform discharges. Clinical correlation is advised. MMODL / IJN: [id number] / MTDD
[2019-05-01 15:51] LABS: Glucose,Whole Blood 95 mg/dL (75-99)
[2019-05-02] MEDS: PIPERACILLIN-TAZOBACTAM 3.375 GM in SODIUM CHLORIDE 0.9% 100 ML IVPB SCH ×4 (00:17→23:53)
[2019-05-02] MEDS: PROPOFOL 1,000 MG in EMPTY BAG 1 BAG IV SCH ×3 (03:25→17:08)
[2019-05-02] MEDS: NOREPINEPHRINE 4 MG in SODIUM CHLORIDE 0.9% 250 ML IV SCH (03:29)
[2019-05-02] MEDS: SODIUM CHLORIDE 0.9% 1,000 ML IV SCH ×3 (04:49→17:08)
[2019-05-02 05:09] LABS: Basophils % (A) 0 %; Eosinophils # (A) 0.1 k/uL (0-0.7); Eosinophils % (A) 2 %; HCT 31.7 % (39.0-53.0); HGB 10.3 gm/dL (13.0-17.5); Lymphocytes # (A) 0.8 k/uL (1.0-4.8); Lymphocytes % (A) 9 %; MCH 29.6 pg (25.0-35.0); MCHC 32.6 g/dL (31.0-37.0); MCV 90.7 fL (80.0-100.0); Mean Platelet Volume 10.7; Monocytes # (A) 0.5 k/uL (0-1.0); Monocytes % (A) 5 %; Neutrophils # (A) 7.3 k/uL (1.3-7.7); Neutrophils % (A) 83 %; Platelet Count 116 k/uL (150-450); RDW 14.3 % (11.5-15.5); WBC 8.8 k/uL (3.8-10.6)
[2019-05-02 05:23] LABS: Calcium 8.3 mg/dL (8.4-10.2); Phosphorus 5.3 mg/dL (2.5-4.5)
[2019-05-02 07:06] LABS: ABG Base Excess -6.2 mmol/L; ABG HCO3 19 mmol/L (21-25); ABG PCO2 35 mmHg (35-45); ABG PH 7.35 (7.35-7.45); ABG PO2 119 mmHg (83-108); ABG TCO2 20 mmol/L (19-24); Allen Test Performed? Yes
--- NOTE | 2019-05-02 08:08 | XR ---
EXAMINATION TYPE: XR chest 1V DATE OF EXAM: 05/02/2019 COMPARISON: 05/01/2019 HISTORY: Shortness of breath TECHNIQUE: Single frontal view of the chest is obtained. FINDINGS: ET tube is satisfactory. NG tube courses below the diaphragm. Curvature at the thoracolumb ar junction may be positional or due to scoliosis. Thoracic aorta appears aneurysmal. Heart mildly en larged. Patchy airspace opacity throughout the right lung slightly increased. IMPRESSION: 1. Findings are suggestive of a thoracic aortic aneurysm which has been reported by recent CT scan. 2. Bilateral infiltrate and pleural effusion greater on the left stable. Correlate for pneumonia vers us CHF.
[2019-05-02] MEDS: GABAPENTIN 100 MG CAP PO SCH ×3 (08:42→21:15)
[2019-05-02] MEDS: ALLOPURINOL 100 MG TAB PO SCH (08:42)
[2019-05-02] MEDS: CHLORHEXIDINE GLUCONATE 15 ML CUP MUCOUS MEM SCH ×2 (08:42→21:15)
[2019-05-02] MEDS: THIAMINE 100 MG TAB PO SCH (08:42)
[2019-05-02] MEDS: ASCORBIC ACID 500 MG TAB PO SCH (08:43)
[2019-05-02] MEDS: FAMOTIDINE 20 MG/2 ML VIAL IV SCH (08:43)
[2019-05-02] MEDS: ISOSORBIDE MONONITRATE ER 30 MG TAB.ER.24H PO SCH (08:43)
[2019-05-02] MEDS: TAMSULOSIN 0.4 MG CAP.ER.24H PO SCH (08:43)
[2019-05-02] MEDS: ACYCLOVIR SODIUM 1,000 MG in SODIUM CHLORIDE 0.9% 250 ML IVPB SCH (08:47)
[2019-05-02] MEDS: VITAMIN A 10,000 UNIT CAPSULE PO SCH (08:47)
[2019-05-02] MEDS: ZINC SULFATE 220 MG CAP PO SCH (08:47)
[2019-05-02] MEDS: DULoxetine HCL 60 MG CAPSULE.DR PO SCH (08:48)
[2019-05-02] MEDS: CARVEDILOL 12.5 MG TAB PO SCH ×2 (08:49→17:12)
--- NOTE | 2019-05-02 10:12 | P.PN ---
Subjective Patient is seen in follow-up for acute kidney injury on chronic kidney disease. Patient has chronic kidney disease stage III with baseline creatinine in the range of 2-2.3 secondary to nephrosclerosis. Creatinine peaked at 3.84 this admission and is 3.61 today. On April 30, the patient was noted to be unresponsive. He was subsequently intubated and transferred to the intensive care unit. He is currently on Levophed. He is nonoliguric. Currently intubated and sedated. Tube feeding has been started. Vital signs are stable. General: The patient appeared well nourished and normally developed. HEENT: Head exam is unremarkable. Neck is without jugular venous distension. Intubated. LUNGS: Lungs are clear to auscultation and percussion. Breath sounds decreased. HEART: Rate and Rhythm are regular. First and second heart sounds normal. No murmurs, rubs or gallops. ABDOMEN: Abdominal exam reveals normal bowel sounds. Non-tender and non- distended. EXTREMITITES: No clubbing, cyanosis, or edema. Objective - Vital Signs Vital signs: Vital Signs Temp 97.3 F L 05/02/19 04:00 Pulse 46 L 05/02/19 07:00 Resp 18 05/02/19 07:00 BP 140/81 05/02/19 07:00 Pulse Ox 98 05/02/19 07:00 Intake & Output 05/01/19 05/02/19 05/02/19 18:59 06:59 18:59 Intake Total 2326.149 2296.980 Output Total 575 1045 Balance 3300.108 0609.980 Weight 82.6 kg 77.3 kg Intake: IV 1450 1352 Acyclovir Sodium 1,000 mg 250 In Sodium Chloride 0.9% 250 ml @ 270 mls/hr IVPB Q24HR [facility] Rx#:[id number] Piperacillin-Tazobactam 3 175 25 .375 gm In Sodium Chloride 0.9% 100 ml @ 25 mls/hr IVPB Q8H [facility] Rx#: [id number] Sodium Chloride 0.9% 1, 1025 1300 000 ml @ 125 mls/hr IV . Q8H [facility] Rx#:[id number] pressure bag 27 Intake, IV Titration 586.149 704.980 Amount Norepinephrine 4 mg In 416.778 472.407 Sodium Chloride 0.9% 250 ml @ 0.05 MCG/KG/MIN 15. 735 mls/hr IV .Q16H9M [facility] Rx#:[id number] Piperacillin-Tazobactam 3 100 .375 gm In Sodium Chloride 0.9% 100 ml @ 25 mls/hr IVPB Q8H [facility] Rx#: [id number] Propofol 1,000 mg In 169.371 132.573 Empty Bag 1 bag @ Titrate IV .Q0M [facility] Rx#: [id number] Tube Feeding 60 240 Other 230 Output: Urine 575 1045 Other: Voiding Method Indwelling Catheter Indwelling Catheter ABP, PAP, CO, CI - Last Documented Arterial Blood Pressure 144/71 - Labs CBC & Chem 7: 05/02/19 04:55 05/02/19 04:55 Labs: Abnormal Lab Results - Last 24 Hours (Table) 05/02/19 05/02/19 05/02/19 Range/Units 04:55 04:55 06:59 RBC 3.50 L (4.30-5.90) m/uL Hgb 10.3 L (13.0-17.5) gm/dL Hct 31.7 L (39.0-53.0) % Plt Count 116 L (150-450) k/uL Lymphocytes # 0.8 L (1.0-4.8) k/uL ABG pO2 119 H (83-108) mmHg ABG HCO3 19 L (21-25) mmol/L ABG O2 Saturation 98.0 H (94-97) % Sodium 147 H (137-145) mmol/L Chloride 119 H (98-107) mmol/L Carbon Dioxide 18 L (22-30) mmol/L BUN 55 H (9-20) mg/dL Creatinine 3.61 H (0.66-1.25) mg/dL Glucose 112 H (74-99) mg/dL Calcium 8.3 L (8.4-10.2) mg/dL Phosphorus 5.3 H (2.5-4.5) mg/dL Magnesium 3.0 H (1.6-2.3) mg/dL Microbiology - Last 24 Hours (Table) 04/25/19 18:38 Blood Culture - Final Blood No Growth after 144 hours 04/25/19 17:50 Blood Culture - Final Blood No Growth after 144 hours 05/01/19 03:15 Urine Culture - Preliminary Urine,Voided 04/30/19 23:13 Gram Stain - Preliminary Sputum Sputum Culture - Preliminary Assessment and Plan Plan: Assessment: 1. Acute kidney injury secondary to ATN secondary to infection and hypotension. UA is quite benign. Creatinine peaked at 3.84 this admission - 3.61 today. No evidence of hydronephrosis noted on CAT scan. 2. Urinary retention status post Huerta catheter placement. 3. Encephalopathy. Concern for encephalitis. Infectious disease following. Lumbar puncture to be again attempted today. 4. Chronic kidney disease stage III with baseline creatinine in the range of 2- 2.3. Etiology is nephrosclerosis. 5. Hypertension with chronic kidney disease. Blood pressure currently stable. On Levophed. 6. Metabolic acidosis secondary to JENIFRE and IVFs. Plan: Decrease rate of normal saline to 50 mL an hour. Start free water flushes at a rate of 200 mL every 4 hours. Wean vasopressors. Maintain Huerta catheter. Continue to monitor renal function and urine output. Dose of acyclovir to be adjusted for renal function. Add oral bicarbonate.
--- NOTE | 2019-05-02 10:37 | P.PN ---
Subjective Progress Note Date: 05/02/19 Principal diagnosis: AMS Remains intubated and sedated in ICU. AMS etiology unclear. Awaiting LP under fluoro. Patient non-communicative. No other neuro c/o Objective - Vital Signs Vital signs: Vital Signs Temp 97.3 F L 05/02/19 04:00 Pulse 46 L 05/02/19 07:00 Resp 18 05/02/19 07:00 BP 140/81 05/02/19 07:00 Pulse Ox 98 05/02/19 07:00 Intake & Output 05/01/19 05/02/19 05/02/19 18:59 06:59 18:59 Intake Total 2326.149 2296.980 790 Output Total 575 1045 350 Balance 4842.105 1511.980 440 Weight 82.6 kg 77.3 kg Intake: IV 1450 1352 570 Acyclovir Sodium 1,000 mg 250 270 In Sodium Chloride 0.9% 250 ml @ 270 mls/hr IVPB Q24HR [facility] Rx#:[id number] Piperacillin-Tazobactam 3 175 25 .375 gm In Sodium Chloride 0.9% 100 ml @ 25 mls/hr IVPB Q8H [facility] Rx#: [id number] Sodium Chloride 0.9% 1, 1025 1300 300 000 ml @ 50 mls/hr IV . Q20H [facility] Rx#:[id number] pressure bag 27 Intake, IV Titration 586.149 704.980 Amount Norepinephrine 4 mg In 416.778 472.407 Sodium Chloride 0.9% 250 ml @ 0.05 MCG/KG/MIN 15. 735 mls/hr IV .Q16H9M [facility] Rx#:[id number] Piperacillin-Tazobactam 3 100 .375 gm In Sodium Chloride 0.9% 100 ml @ 25 mls/hr IVPB Q8H [facility] Rx#: [id number] Propofol 1,000 mg In 169.371 132.573 Empty Bag 1 bag @ Titrate IV .Q0M [facility] Rx#: [id number] Oral 160 Tube Feeding 60 240 60 Other 230 Output: Urine 575 1045 350 Other: Voiding Method Indwelling Catheter Indwelling Catheter ABP, PAP, CO, CI - Last Documented Arterial Blood Pressure 144/71 - Exam Gen NAD Intubated Propofol just turned off MS GCS 3 CN PERRL -Doll's +Corneal's +Grimace +Cough Motor Normal bulk/tone No tremors or other adventitious movements No spontaneous motor movements Sens No motor response to nailbed stim x4 but does have pupillary dilatation Coord Unable to test DTRs 1+/4 sym throughout Toes mute bilaterally no ankle clonus Gait Cannot test due to intubation/sedation - Labs CBC & Chem 7: 05/02/19 04:55 05/02/19 04:55 Labs: Abnormal Lab Results - Last 24 Hours (Table) 05/02/19 05/02/19 05/02/19 Range/Units 04:55 04:55 06:59 RBC 3.50 L (4.30-5.90) m/uL Hgb 10.3 L (13.0-17.5) gm/dL Hct 31.7 L (39.0-53.0) % Plt Count 116 L (150-450) k/uL Lymphocytes # 0.8 L (1.0-4.8) k/uL ABG pO2 119 H (83-108) mmHg ABG HCO3 19 L (21-25) mmol/L ABG O2 Saturation 98.0 H (94-97) % Sodium 147 H (137-145) mmol/L Chloride 119 H (98-107) mmol/L Carbon Dioxide 18 L (22-30) mmol/L BUN 55 H (9-20) mg/dL Creatinine 3.61 H (0.66-1.25) mg/dL Glucose 112 H (74-99) mg/dL Calcium 8.3 L (8.4-10.2) mg/dL Phosphorus 5.3 H (2.5-4.5) mg/dL Magnesium 3.0 H (1.6-2.3) mg/dL Microbiology - Last 24 Hours (Table) 04/25/19 18:38 Blood Culture - Final Blood No Growth after 144 hours 04/25/19 17:50 Blood Culture - Final Blood No Growth after 144 hours 05/01/19 03:15 Urine Culture - Preliminary Urine,Voided 04/30/19 23:13 Gram Stain - Preliminary Sputum Sputum Culture - Preliminary Assessment and Plan Assessment: Altered mental status, likely multifactorial. Cannot r/o watershed ischemic infarcts due to hypotensive episodes or encephalitis. 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 Pulmonology following. -Acute on chronic renal failure. Nephrology following. -d/w ICU staff. All questions answered. Thank you again for this consultation. Please call with ?. Time with Patient: Less than 30 (Time spent in direct patient care/coordination of care: 25 minutes)
--- NOTE | 2019-05-02 11:22 | P.PN ---
Subjective Progress Note Date: 05/02/19 Principal diagnosis: Mental status change, exact etiology is not clear. 68-year-old -[place] male patient, was hospitalized because of shortness of breath and chest pain. Currently confused and unable to provide any history. Reviewed the records. My consultation is mainly to comment on the pulmonary nodules that were seen in the CAT scan of the chest. I reviewed the records. The patient has previous history of MGUS. He also has multiple medical problems and comorbidities. He has had previous history of CVA, hypertension, migraine, peripheral neuropathy, TIA, obstructive sleep apnea that improved following her bariatric surgery, chronic stage III kidney disease and the patient has undergone previous one Y gastric bypass surgery for morbid obesity. He also has previous history of smoking in addition to previous history of substance abuse including cocaine and heroin and marijuana. During this current admission, injection was positive for opiates. Chest x-ray was negative. There was cardiomegaly. CAT scan of the brain showed no acute abnormalities. CAT scan of the chest abdomen and pelvis showed only nodules along the pleural surface that has progressed in size and for that reason a pulmonary consultation was requested. Noted the patient also has cardiomyopathy with an ejection fraction of 25-30%. Currently he is delirious. 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 The lung show subpleural nodularity in the left which has progressed and interval. No pleural effusion. There is no other lesion along the left cardiac border that was seen on the previous PET scan. In fact, a PET scan was done regarding the pulmonary nodules back in 02/23/2019 and this was ordered by his primary care physician, Dr. Brian Gallegos, and the PET scan showed a soft tissue density present in the posterior left heart border associated with a SUV of 3.9 and this was somewhat difficult to differentiate as its immediately adjacent to the hypermetabolic hearts. The pleural lesion did not show any activity. On 04/29/2019 patient seen in follow-up on medical surgical floor. He is sedated, he had received some Ativan apparently earlier this morning he was agitated, delirious, attempting to get up out of bed unassisted. He is suspected to be actively withdrawing from alcohol, and he is on CIWA protocol. Remainder pulse ox is 98%, patient is afebrile, hemodynamically patient is stable, blood and urine cultures have shown no growth, today's labs have been reviewed, showing white blood cell count of 6.2, hemoglobin of 11.6, electrolytes were within normal limits, BUN of 61 creatinine is 3.84. Urinalysis was negative, ID service is following, and patient is on Zosyn for there can antibiotic coverage. In view of his delirious state, and altered mentation anesthesia was consulted for lumbar puncture, which is supposed to take place sometime today. Afebrile, security public safety officer is at the bedside, hemodynamically patient is stable. Hematology is following. No difficulty breathing, maintain aspiration precautions. Lung sounds reveal some scattered rhonchi Patient was reevaluated today on 05/01/2019, he is now in the ICU on mechanical ventilation. We were actually seeing the patient for subpleural pulmonary nodules, and we felt that these should be addressed on an outpatient basis once his mental status clears. Patient continues to have issues with his mental status and confusion, and he was having intermittent episodes of agitations. Could not have lumbar puncture done by anesthesia, and apparently last night his condition deteriorated, patient went into hypoxic and hypercapnic respiratory failure requiring intubation and mechanical ventilation. He was also noted to be hypotensive requiring norepinephrine presently at 0.14 mcg/kg/m and he is on propofol at 75 mcg/kg/m. His ventilator settings are assist control rate of 18 tidal volume of 500 FiO2 of 55% and PEEP is 5. ABG showed a pO2 of 92 pCO2 of 40 0 pH of 7.31. CBC is relatively normal. Basic metabolic profile is relatively normal. Renal functioning is abnormal with a BUN of 64 creatinine of 3.64, being followed by nephrology. His ABG yesterday post intubation showed a pO2 of 158 pCO2 of 50 pH of 7.27 which clearly indicates that the patient dev eloped possibly a combined picture of hypoxic and hypercapnic respiratory failure. His chest x-ray is showing significant airspace disease involving the right lung consistent with most likely aspiration pneumonia. Patient remains on Zosyn. And he is being followed by infectious disease. Urinalysis is suggestive of urinary tract infection. Blood cultures have been negative since admission. Urine cultures have been negative so far. Sputum cultures are pending but the Gram stain is showing many gram-positive cocci and rare gram- negative bacilli. Antibiotics diaz, patient was placed on Zosyn and he is also on acyclovir empirically since the lumbar puncture could not be performed yesterday. Seen by neurology on consultation, and seems to be concerned about possible watershed ischemic infarcts due to hypotensive episodes or encephalitis. In the meantime they seem to be agreeable with acyclovir and antibiotics as per infectious disease. The pulmonary nodules noted on the CT of the chest are to be addressed on an outpatient basis or once his mental status issue improves. Reevaluated today on 05/02/2019, remains in the ICU, intubated, scheduled to have lumbar puncture today by anesthesia. His ventilator settings are assist control rate of 18 tidal volume of 500 FiO2 40% PEEP of 5. Chest x-ray showed significant improvement in hisdisease involving the right lung, remains on a ntibiotics for presumptive aspiration pneumonia. ABG showed a pO2 of 119 pCO2 of 35 pH of 7.35 bicarb remains a bit low at 18. And that's because of his renal functioning. The intensity 5 creatinine 3.61. Patient was given a sedation interruption trial, and his mental status remains extremely poor, did not have any purposeful movements, did not follow any instructions. Objective - Vital Signs Vital signs: Vital Signs Temp 97.8 F 05/02/19 08:00 Pulse 55 L 05/02/19 11:00 Resp 18 05/02/19 11:00 BP 116/74 05/02/19 11:00 Pulse Ox 95 05/02/19 11:00 Intake & Output 05/01/19 05/02/19 05/02/19 18:59 06:59 18:59 Intake Total 2326.149 2296.980 870 Output Total 575 1045 475 Balance 4732.149 9917.980 395 Weight 82.6 kg 77.3 kg Intake: IV 1450 1352 620 Acyclovir Sodium 1,000 mg 250 270 In Sodium Chloride 0.9% 250 ml @ 270 mls/hr IVPB Q24HR [facility] Rx#:[id number] Piperacillin-Tazobactam 3 175 25 .375 gm In Sodium Chloride 0.9% 100 ml @ 25 mls/hr IVPB Q8H [facility] Rx#: [id number] Sodium Chloride 0.9% 1, 1025 1300 350 000 ml @ 50 mls/hr IV . Q20H [facility] Rx#:[id number] pressure bag 27 Intake, IV Titration 586.149 704.980 Amount Norepinephrine 4 mg In 416.778 472.407 Sodium Chloride 0.9% 250 ml @ 0.05 MCG/KG/MIN 15. 735 mls/hr IV .Q16H9M [facility] Rx#:[id number] Piperacillin-Tazobactam 3 100 .375 gm In Sodium Chloride 0.9% 100 ml @ 25 mls/hr IVPB Q8H [facility] Rx#: [id number] Propofol 1,000 mg In 169.371 132.573 Empty Bag 1 bag @ Titrate IV .Q0M [facility] Rx#: [id number] Oral 160 Tube Feeding 60 240 90 Other 230 Output: Urine 575 1045 475 Other: Voiding Method Indwelling Catheter Indwelling Catheter ABP, PAP, CO, CI - Last Documented Arterial Blood Pressure 118/62 - Exam Physical Exam: Revealed a 68-year-old male on mechanical ventilation, Head: Atraumatic, normocephalic. HEENT:[Neck is supple.] [No neck masses.] [No thyromegaly.] [No JVD.] Endotracheal tube is intact. Chest: [Crackles and rhonchi noted on the right side, left side is relatively clear. Symmetrical chest expansion noted.] Cardiac Exam: [Normal S1 and S2, no S3 gallop, no murmur.] Abdomen: [Soft, nontender, no megaly, no rebound, no guarding, normal bowel sounds.] Extremities: [No clubbing, no edema, no cyanosis.] Good pulses bilaterally. Neurological Exam: Cannot be assessed, patient is on propofol, sedated, however off propofol, patient was not following any instructions, and did not have any purposeful movements. Psychiatric: Could not be assessed. Skin: No rashes. - Labs CBC & Chem 7: 05/02/19 04:55 05/02/19 04:55 Labs: Abnormal Lab Results - Last 24 Hours (Table) 05/02/19 05/02/19 05/02/19 Range/Units 04:55 04:55 06:59 RBC 3.50 L (4.30-5.90) m/uL Hgb 10.3 L (13.0-17.5) gm/dL Hct 31.7 L (39.0-53.0) % Plt Count 116 L (150-450) k/uL Lymphocytes # 0.8 L (1.0-4.8) k/uL ABG pO2 119 H (83-108) mmHg ABG HCO3 19 L (21-25) mmol/L ABG O2 Saturation 98.0 H (94-97) % Sodium 147 H (137-145) mmol/L Chloride 119 H (98-107) mmol/L Carbon Dioxide 18 L (22-30) mmol/L BUN 55 H (9-20) mg/dL Creatinine 3.61 H (0.66-1.25) mg/dL Glucose 112 H (74-99) mg/dL Calcium 8.3 L (8.4-10.2) mg/dL Phosphorus 5.3 H (2.5-4.5) mg/dL Magnesium 3.0 H (1.6-2.3) mg/dL Microbiology - Last 24 Hours (Table) 04/25/19 18:38 Blood Culture - Final Blood No Growth after 144 hours 04/25/19 17:50 Blood Culture - Final Blood No Growth after 144 hours 05/01/19 03:15 Urine Culture - Preliminary Urine,Voided 04/30/19 23:13 Gram Stain - Preliminary Sputum Sputum Culture - Preliminary Assessment and Plan Assessment: 1 acute hypoxic and hypercapnic respiratory failure secondary to extensive right sided pneumonia, strongly suspect aspiration pneumonia. Continue Zosyn. 2 altered mentation currently under investigation. Scheduled to have a lumbar puncture today. 3 chest pain, skeletal in nature 4 severe cardiomyopathy with an ejection fraction of 25-30% 5 history of TIA 6 peripheral neuropathy 7 morbidly obesity with a previous Dorian-en-Y gastric bypass surgery 8 obstructive sleep apnea improved with weight loss 9 history of urinary retention requiring straight cathed 10 chronic back pain 11 history of MGUS 12 history of chronic migraine headaches 13 history of stage III chronic kidney disease 14 history of substance abuse including cocaine and heroin and marijuana 15 history of tobacco smoking 16 history of rotator cuff tear 17 acute on chronic kidney injury secondary to ATN secondary to hypotension secondary to septic shock 18 encephalopathy, possible encephalitis, being addressed by infectious disease on the case , remains on acyclovir empirically, lumbar puncture is pending. Recommendation: Continue ventilatory support, antibiotics for aspiration pneumonia, nutritional support/enteral feeding, GI and DVT prophylaxis, agree with lumbar puncture to be done today, patient is clearly not ready for any weaning trials, he was given a sedation interruption, mental status remains extremely poor, and will likely fail if extubated. Final report on the sputum culture is pending. Blood cultures remain negative. Prognosis remains extremely poor and guarded, we will continue to follow. Critical care time is 34 minutes. Time with Patient: Greater than 30
[2019-05-02] MEDS: SODIUM BICARBONATE TAB 650 MG TAB PO SCH ×2 (11:31→21:15)
--- NOTE | 2019-05-02 12:42 | PN ---
PROGRESS NOTE Kevin is a 68-year-old gentleman who is in the ICU, intubated on vent. He is off sedation, but not much spontaneous activities noted this morning. The primary concern with him is that his heart rate is slow. He is still on Levophed for hypotension. The patient is on Coreg which he did not receive yesterday or today. I am going to stop it. Rhythm strip shows that he is in sinus rhythm. Heart rate is in the 50s. Blood pressure 116/74, respiratory rate is 18. Chest exam reveals good air entry bilaterally. Heart exam reveals first and second heart sounds. Systolic murmur at the left lower sternal border. Abdomen is soft. Examination of the extremities reveals trace edema. Peripheral pulses are felt. LABS: Labs today show a hemoglobin of 10.3 potassium is 4. BUN is 55, creatinine is 3.6. ASSESSMENT: 1. Acute hypoxic respiratory failure secondary to pneumonia with possible aspiration. 2. Altered mental status, etiology is unclear. Workup in progress. 3. Cardiomyopathy, needs workup. However, initial plan was to do it as outpatient. 4. History of substance abuse. 5. Chronic renal failure. 6. Bradycardia. PLAN: We will hold the beta blockers at this time. Continue rest of his medications. Prognosis is guarded. MMODL / IJN: [id number] /
--- NOTE | 2019-05-02 13:11 | P.PN ---
Subjective Progress Note Date: 05/02/19 This is a 68-year-old -L[place] male patient of Dr. Gallegos with a past medical history of hypertension, migraine headaches, lower extremity neuropathy, TIA in 2008, obstructive sleep apnea resolved after bariatric surgery, gastroesophageal reflux disease, chronic kidney disease stage III, morbid obe sity status post Dorian-en-Y, tobacco use and dependence, remote history of drug use with cocaine, heroin and marijuana. Patient complains of chest pain as well as bilateral shoulder pain that been going on for 4-5 days. He does give history of having Route rotator cuff tears. He complains of chronic low back pain. He states his blood pressure at the office is usually between 120 and 130. Patient presented to [facility] emergency center for evaluation. Temperature 100.8, heart rate 88, blood pressure 178/128. Patient was given nitro bid ointment and Catapres. Blood pressure did drop to 62/42. CBC within normal range, sodium 134, potassium 5.1, chloride 103, CO2 23, BUN 27 creatinine 2.29. Baseline creatinine is in the twos. Blood sugar 129. Troponins of been 0.030, 0.037, 0.022. Urinalysis was negative. Urine drug screen positive for opiates. Chest x-ray shows no acute cardiopulmonary process. Cardiomegaly. Aortic aneurysm. CAT scan of the brain showed no acute abnormality. CT of the chest abdomen and pelvis reveals interval progression of pleural nodules may be due to metastatic disease. Aortic aneurysm. Cardiomegaly. Noncontrast exam. Postop changes. Correlate for possible enteritis. This morning blood pressure is 157/98, pulse ox 95% on room air, afebrile, heart rate 79. Patient has been seen by Dr. Crane and chest pain is noncardiac and has been cleared for discharge. They can do an outpatient stress test. Echo has been obtained and report is pending. 04/26: Patient ran temps up to 102.5 through the night and was started on cef triaxone. The patient states that he did take some pain medicine for back and abdominal pain. Patient is noted to have some left lower quadrant pain. He denies any recent intake of nuts or seeds. No diarrhea. He denies any headache. We will change antibiotics to Zosyn. Blood pressure today is 146/90 which is improved. Cardiology has signed off. Patient [facility] floor without telemetry. Anticipate possible discharge home tomorrow. Echocardiogram reveals EF of 25-30%, mild aortic valve sclerosis, no aortic stenosis, trace mitral regurgitation, mild tricuspid regurgitation, no pulmonary hypertension, trivial pericardial effusion. Patient last followed up with Dr. Rowan in October 2015. At that time, he had a known ejection fraction of 45%. 04/27: Patient's discharge was held today, secondary to his confusion, and fidgetiness, patient's symptom be alert and oriented to situation, per family he lives in a half-way house, last alcohol intake was November 23, denies any other social drug uses, Imitrex and posterior on opiates for which he is on hydrocodone, creatinine is elevated currently at 3.39, from a previous number of 2.23, creatinine 56, patient had urinary retention of 700 mL, cath was inserted, thereafter he is fidgetiness and last night was improved, ciwa protocol was initiated, nursing staff has noticed him to be weaker with balance issues, no tremors noted, patient can move all 4 extremities, on examination, no dysarthria noted, no facial droop, no aspirate the events blood pressure of 122/78, heart rate of 57, patient has a temp of 99.8 from a previous PA CAT scan was reviewed, there is interval progression of pleural nodules, may be due to metastatic disease, aortic aneurysm, cardiomegaly, noncontrast exam, postop changes correl ate for possible enteritis patient does not have any diarrhea, CT of the brain shows no hydrocephalus, orbits are stable, inflammatory changes within the maxillary sinuses, IV antibiotics started, consults were made with Dr. Alexander secondary to recurrent fevers, no primary source identified, might need LP, with viral cultureshsv 04/28, patient remains in the room without any safety sees , he seems to be more alert today however he requires Ativan for impulsiveness and agitation, he seems to be oriented to time and place and person, however he gets crepitation off his behaviors from aggressive to being sleepy, nursing staff has held the gabapentin, we will decrease Denver to 7.53-5. LP is planned for the morning, to evaluate encephalitis no change in antibiotic from Dr. Alexander patient has been seen by oncology, and an panel ordered, pulmonary also was consulted, no plans for bronchoscopy as it is not amenable or accessible, no immediate need for CT guided biopsy, as per their recommendation based on a PET/CT done outpatient January 2019 with the posterior left heart border SUV off 3.9 that was difficult to differentiate as it is immediately adjacent to the hyper metabolic cardiac muscl e 04/29: Patient continues to have mental status changes and has a sitter at the bedside. Patient was very confused and trying to get out of bed this morning. He does complain of some headache. Patient is refusing to eat today. Blood pressure is on the lower side for which hydralazine will be discontinued. He is scheduled for LP today. Patient has been followed by Dr. Alexander, pulmonary medicine and oncology. Pulmonary medicine is planning for CT guided needle aspirate biopsy of the subpleural lesion on the left by interventional radiology once patient's mental status has been cleared. I'll repeat lab work reveals white count of 6.2, hemoglobin 11.6, platelet count 128. BUN 61 creatinine 3.84, blood sugar 117. Liver function tests and electrolytes unremarkable. 04/30: Patient has been hypothermic during the night with a rectal temperature of 93.6. Currently heart rate is 57, blood pressure 103/61, pulse ox 98% on room air. TSH 0.871. IgG a IgG IgM within normal limits, SUJATA screen negative. Free [place] 13.2, free lambda 6.57 are both elevated. Albumin PEEP is low at 3.55. Alpha-1 globulins and alpha-2 globulins within normal limits, beta globulins within normal limits, gamma globulins normal limits. No monoclonal paraprotein identified. Patient continues to have significant confusion and LP was attempted this morning but unsuccessful due to patient being uncooperative. We have ordered a CAT scan of the brain that showed a related changes of atrophy and chronic small vessel ischemia. Due to worsening renal function, consult added for nephrology for acute kidney injury. He has started the patient on normal saline at 75 mL per hour. Due to patient's blood pressure being low. We have discontinued amlodipine and when necessary hydralazine and [place] has also been discontinued. A cortisol level ordered for 4 PM. CIWA protocol changed to Ativan half milligram every 4 hours as needed for anxiety/agitation. 05/01: Last evening, A-Team was called as patient was found to have pulse ox of 65% on room air and hypotensive and not responding to sternal rub. Patient was initially placed on a nonrebreather and transferred to the intensive care unit where he has subsequently been intubated and placed on mechanical ventilation. Patient has required norepinephrine. He is currently sedated. Huerta catheter was placed. Patient has been seen by neurology with recommendations for EEG which is being done today. Chest x-ray from yesterday reveals diffuse airspace opacities throughout the right lung which may be inflammatory or infectious. Dr. Alexander has added acyclovir. Repeat lab work reveals white count of 5.8, hemoglobin 11.9, platelet count 136. Sodium 144, potassium 4.4, chloride 114, CO2 19, BUN 64 and creatinine 3.64. Calcium is 8.2, phosphorus 6.8, magnesium 3.0. 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 Urinalysis is cloudy, leukoesterase large, RBCs greater than 182, WBCs 52, WBC clumps moderate, rare yeast. Cortisol level at 10:58 AM was 22 and at 2347. Temperature this morning is normalized to 98.9, pulse 70, blood pressure 101/54. Patient remains intubated and on mechanical ventilation with tidal volume 500, FiO2 55, PEEP 5. Urine output has been 50 mL per hour. He remains on vasopressors. He has not been tried on a sedation holiday today. We will reorder a diagnostic LP to be done tomorrow 24 hours after Lovenox. 05/02: Patient remains intubated and on mechanical ventilation with tidal volume 500, FiO2 40, PEEP of 5. He still on low-dose norepinephrine and on sedation. He has been started on tube feedings at 30 miles per hour. Patient is scheduled for LP to be completed today. A repeat chest x-ray in the shows some improvement of his disease in the right lung. The patient is on Zosyn as well as acyclovir and followed by Dr. Alexander. Patient was seen by Dr. Crane with plan to hold beta blockers and continue the rest of his medications. Sodium bicarb oral has been unit by Dr. Burgos. Temperature is currently stable witho ut fever or hypothermia. Heart rate is 55, blood pressure 118/62 and to be weaned off vasopressor. WBC 8.8 hemoglobin 10.3, platelet count 116. Sodium 147, potassium 4.0, chloride 119, CO2 18, BUN 55 and creatinine 3.61. Objective - Vital Signs Vital signs: Vital Signs Temp 97.8 F 05/02/19 08:00 Pulse 55 L 05/02/19 11:00 Resp 18 05/02/19 11:00 BP 116/74 05/02/19 11:00 Pulse Ox 95 05/02/19 11:00 Intake & Output 05/01/19 05/02/19 05/02/19 18:59 06:59 18:59 Intake Total 2326.149 2296.980 870 Output Total 575 1045 475 Balance 3362.341 9252.980 395 Weight 82.6 kg 77.3 kg Intake: IV 1450 1352 620 Acyclovir Sodium 1,000 mg 250 270 In Sodium Chloride 0.9% 250 ml @ 270 mls/hr IVPB Q24HR [facility] Rx#:[id number] Piperacillin-Tazobactam 3 175 25 .375 gm In Sodium Chloride 0.9% 100 ml @ 25 mls/hr IVPB Q8H [facility] Rx#: [id number] Sodium Chloride 0.9% 1, 1025 1300 350 000 ml @ 50 mls/hr IV . Q20H [facility] Rx#:[id number] pressure bag 27 Intake, IV Titration 586.149 704.980 Amount Norepinephrine 4 mg In 416.778 472.407 Sodium Chloride 0.9% 250 ml @ 0.05 MCG/KG/MIN 15. 735 mls/hr IV .Q16H9M [facility] Rx#:[id number] Piperacillin-Tazobactam 3 100 .375 gm In Sodium Chloride 0.9% 100 ml @ 25 mls/hr IVPB Q8H [facility] Rx#: [id number] Propofol 1,000 mg In 169.371 132.573 Empty Bag 1 bag @ Titrate IV .Q0M [facility] Rx#: [id number] Oral 160 Tube Feeding 60 240 90 Other 230 Output: Urine 575 1045 475 Other: Voiding Method Indwelling Catheter Indwelling Catheter ABP, PAP, CO, CI - Last Documented Arterial Blood Pressure 118/62 - Exam Review of Systems--unable to obtain due to intubation. - Constitutional General appearance: Present: In ICU bed, intubated and on mechanical [place] tilation, no acute distress - EENT Eyes: Present: anicteric sclerae, EOMI, dentition normal ENT: Present: NA/AT, normal oropharynx - Neck Neck: Present: normal ROM - Respiratory Respiratory: bilateral: Crackles and rhonchi - Cardiovascular Rhythm: regular Heart sounds: normal: S1, S2 Abnormal Heart Sounds: Absent: systolic murmur, diastolic murmur, rub, S3 Gallop, S4 Gallop, click, other - Gastrointestinal General gastrointestinal: Present: normal bowel sounds - Integumentary Integumentary: Present: decreased turgor, normal, no rashes, no wounds - Neurologic Neurologic: Sedated - Musculoskeletal Musculoskeletal: Sedated - Psychiatric Psychiatric: Sedated. - Labs CBC & Chem 7: 05/02/19 04:55 05/02/19 04:55 Labs: Abnormal Lab Results - Last 24 Hours (Table) 05/02/19 05/02/19 05/02/19 Range/Units 04:55 04:55 06:59 RBC 3.50 L (4.30-5.90) m/uL Hgb 10.3 L (13.0-17.5) gm/dL Hct 31.7 L (39.0-53.0) % Plt Count 116 L (150-450) k/uL Lymphocytes # 0.8 L (1.0-4.8) k/uL ABG pO2 119 H (83-108) mmHg ABG HCO3 19 L (21-25) mmol/L ABG O2 Saturation 98.0 H (94-97) % Sodium 147 H (137-145) mmol/L Chloride 119 H (98-107) mmol/L Carbon Dioxide 18 L (22-30) mmol/L BUN 55 H (9-20) mg/dL Creatinine 3.61 H (0.66-1.25) mg/dL Glucose 112 H (74-99) mg/dL Calcium 8.3 L (8.4-10.2) mg/dL Phosphorus 5.3 H (2.5-4.5) mg/dL Magnesium 3.0 H (1.6-2.3) mg/dL Microbiology - Last 24 Hours (Table) 05/01/19 09:43 Blood Culture - Preliminary Blood No Growth after 24 hours 04/25/19 18:38 Blood Culture - Final Blood No Growth after 144 hours 04/25/19 17:50 Blood Culture - Final Blood No Growth after 144 hours 05/01/19 03:15 Urine Culture - Preliminary Urine,Voided 04/30/19 23:13 Gram Stain - Preliminary Sputum Sputum Culture - Preliminary Assessment and Plan Plan: 1. Chest pain, most likely musculoskeletal or related to bilateral rotator cuff injuries. Cardiology consult appreciated. Echocardiogram as above. 2. Hypertensive emergency. Patient is now hypotensive and hydralazine oral, amlodipine, Coreg and IV hydralazine discontinued. 3. Acute enteritis ruled out or less likely. 4. Acute metabolic encephalopathy with fever secondary to possible viral encephalitis, LP reordered to be attempted today, consult Dr. Alexander appreciated. Continue Zosyn and acyclovir. Consult with neurology appreciated. Acute stroke has not been ruled out. 5. Abnormal imaging studies in CT, increasing pleural nodules, possible hypermetabolic lesion posterior to the cardiac border, pulmonary and oncology follow him closely. Pulmonary medicine is planning for CAT scan guided biopsy once mental status is clear. 6. Severe cardiomyopathy with EF of 25-30%. Patient previously seen by Dr. Rowan with no follow-up since 2016. At that time known EF of 45. 7. Urinary retention requiring straight cath, 8. Acute kidney injury. Consult with Dr. Burgos added. He has initiated IV fluids 0.9 normal saline. 9. Postobstructive uropathy with renal failure, no hydronephrosis on CT. Patient has been started on Flomax. 10. Acute respiratory failure secondary to acute respiratory arrest requiring intubation and mechanical ventilation. Patient is managed by Dr. Pizarro 11. Acute septic shock secondary to probable viral encephalitis and extensive right-sided pneumonia, possible aspiration pneumonia. Patient has required vasopressors to be weaned off. 12. Possible acute catheter associated urinary tract infection. Continue Zosyn. 13. History of TIA, stable. 14. Gastroesophageal reflux disease. Pepcid. 15. Neuropathy bilateral lower extremities. Gabapentin decreased to 100 mg 3 times daily. 16. History of morbid obesity status post Dorian-en-Y with resolution of sleep apnea with weight loss. 17. Tobacco use and dependence. 18. Chronic back pain, discontinue Denver. 19. GI prophylaxis. Pepcid. 20. DVT prophylaxis. Lovenox. Prognosis guarded Discharge plan: To be determined. Impression and plan of care have been directed as dictated by the signing physician. Gladys Loyd nurse practitioner acting as scribe for signing physician.
[2019-05-02 15:40] LABS: Glucose,CSF 60 mg/dL (40-70); Total Protein,CSF 105 mg/dL (12-60)
[2019-05-02 15:56] LABS: Appearance,CSF Clear; CSF Tube Number 4
[2019-05-02 16:23] LABS: Red Blood Cell,CSF 0 u/L (0-10)
[2019-05-02 16:25] LABS: Nucleated Cells, CSF 11 u/L (0-5)
[2019-05-02 16:28] LABS: Diff, Total Cells Cnt, CSF 100; Mononuclear WBC,CSF 99 %; Polynuclear WBC,CSF 1 %
--- NOTE | 2019-05-02 18:36 | PN ---
PROGRESS NOTE DATE OF SERVICE: 05/02/2019. REASON FOR FOLLOWUP: 1. Mental status changes; question of herpes encephalitis. 2. Possible aspiration pneumonia. INTERVAL HISTORY: The patient is currently afebrile. The patient is hemodynamically stable, though still required low dose of pressor support to support his blood pressure. The patient's FiO2 is currently stable at 50%. Has been tolerating his tube feeds and no diarrhea has been reported. PHYSICAL EXAMINATION: Blood pressure 132/83 with a pulse of 42, temperature 98. He is 94% on 50% FiO2. General description is an elderly male lying in bed in no distress. RESPIRATORY SYSTEM: Unlabored breathing with decreased breath sounds at the base. No wheeze. HEART: S1, S2. Regular rate and rhythm. ABDOMEN: Soft. No tenderness. EXTREMITIES: No edema of the feet. LABS: Hemoglobin is 10.3, white count 8.8. BUN of 55, creatinine 3.61. The patient did have LP completed that shows mildly elevated protein of 105 with a white count of 11, glucose normal at 60. DIAGNOSTIC IMPRESSION AND PLAN: 1. Patient with acute respiratory failure which is likely multifactorial, possible component of right-sided aspiration pneumonia. Sputum culture currently pending. To continue with Zosyn. 2. Patient with encephalopathy/encephalitis with a question of possible herpetic. LP has been completed today. Patient is on empiric acyclovir. To continue. Will wait for the HSV DNA by PCR to be completed. Continue with supportive care. MMODL / IJN: [id number] /
[2019-05-02] MEDS: MELATONIN 3 MG TABLET PO SCH (20:23)
[2019-05-03] MEDS: NOREPINEPHRINE 4 MG in SODIUM CHLORIDE 0.9% 250 ML IV SCH (04:07)
[2019-05-03 05:10] LABS: Calcium 8.5 mg/dL (8.4-10.2); Potassium 3.9 mmol/L (3.5-5.1)
[2019-05-03 05:17] LABS: Basophils % (A) 0 %; Eosinophils # (A) 0.2 k/uL (0-0.7); Eosinophils % (A) 3 %; HCT 31.9 % (39.0-53.0); HGB 10.2 gm/dL (13.0-17.5); Lymphocytes # (A) 0.4 k/uL (1.0-4.8); Lymphocytes % (A) 6 %; MCH 29.6 pg (25.0-35.0); MCHC 32.1 g/dL (31.0-37.0); MCV 92.4 fL (80.0-100.0); Mean Platelet Volume 10.1; Monocytes # (A) 0.3 k/uL (0-1.0); Monocytes % (A) 5 %; Neutrophils # (A) 5.7 k/uL (1.3-7.7); Neutrophils % (A) 85 %; Platelet Count 128 k/uL (150-450); RBC 3.46 m/uL (4.30-5.90); RDW 14.6 % (11.5-15.5); WBC 6.7 k/uL (3.8-10.6)
[2019-05-03] MEDS: CARVEDILOL 12.5 MG TAB PO SCH (05:19)
[2019-05-03 07:06] VITALS: RESP 18
[2019-05-03 07:29] LABS: ABG Base Excess -6.7 mmol/L; ABG HCO3 19 mmol/L (21-25); ABG Oxygen Saturation 94.6 % (94-97); ABG PCO2 35 mmHg (35-45); ABG PH 7.34 (7.35-7.45); ABG PO2 79 mmHg (83-108); ABG TCO2 20 mmol/L (19-24); Allen Test Performed? Yes
--- NOTE | 2019-05-03 08:26 | P.PN ---
Subjective Progress Note Date: 05/03/19 Principal diagnosis: AMS Remains intubated and sedated in ICU. AMS etiology unclear. LP prelim shows only 11 nucleated cells, normal glucose 60 and protein 105. Awaiting HSV PCR. 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 Patient non-communicative. No other neuro c/o. Objective - Vital Signs Vital signs: Vital Signs Temp 94.8 F L 05/03/19 07:00 Pulse 59 L 05/03/19 07:00 Resp 18 05/03/19 07:00 BP 135/85 05/03/19 07:00 Pulse Ox 95 05/03/19 07:00 Intake & Output 05/02/19 05/03/19 05/03/19 18:59 06:59 18:59 Intake Total 2198.744 1476.43 123.764 Output Total 950 410 Balance 771.256 1053.43 123.764 Weight 80.4 kg Intake: IV 1005 665 53 Acyclovir Sodium 1,000 mg 270 In Sodium Chloride 0.9% 250 ml @ 270 mls/hr IVPB Q24HR [facility] Rx#:[id number] Sodium Chloride 0.9% 1, 735 635 50 000 ml @ 50 mls/hr IV . Q20H [facility] Rx#:[id number] pressure bag 30 3 Intake, IV Titration 122.019 190.43 37.764 Amount Norepinephrine 4 mg In 190.43 37.764 Sodium Chloride 0.9% 250 ml @ 0.05 MCG/KG/MIN 15. 735 mls/hr IV .Q16H9M [facility] Rx#:[id number] Propofol 1,000 mg In 122.019 Empty Bag 1 bag @ Titrate IV .Q0M [facility] Rx#: [id number] Oral 160 Tube Feeding 303 429 33 Other 400 Output: Urine 950 410 Stool 0 Other: Voiding Method Indwelling Catheter Indwelling Catheter # Voids 0 30 # Bowel Movements 0 ABP, PAP, CO, CI - Last Documented Arterial Blood Pressure 129/65 - Exam Gen NAD Intubated Propofol just turned off MS GCS 3 CN PERRL -Doll's +Corneal's +Grimace +Cough Motor Normal bulk/tone No tremors or other adventitious movements No spontaneous motor movements Sens No motor response to nailbed stim x4 but does have pupillary dilatation Coord Unable to test DTRs 1+/4 sym throughout Toes mute bilaterally no ankle clonus Gait Cannot test due to intubation/sedation - Labs CBC & Chem 7: 05/03/19 04:30 05/03/19 04:30 Labs: Abnormal Lab Results - Last 24 Hours (Table) 05/02/19 05/03/19 05/03/19 Range/Units 15:08 04:30 04:30 RBC 3.46 L (4.30-5.90) m/uL Hgb 10.2 L (13.0-17.5) gm/dL Hct 31.9 L (39.0-53.0) % Plt Count 128 L (150-450) k/uL Lymphocytes # 0.4 L (1.0-4.8) k/uL ABG pH (7.35-7.45) ABG pO2 (83-108) mmHg ABG HCO3 (21-25) mmol/L Sodium 147 H (137-145) mmol/L Chloride 120 H (98-107) mmol/L Carbon Dioxide 18 L (22-30) mmol/L BUN 50 H (9-20) mg/dL Creatinine 3.03 H (0.66-1.25) mg/dL Glucose 101 H (74-99) mg/dL CSF Tot Nucleated Cells 11 H* (0-5) u/L CSF Total Protein 105 H (12-60) mg/dL 05/03/19 Range/Units 07:24 RBC (4.30-5.90) m/uL Hgb (13.0-17.5) gm/dL Hct (39.0-53.0) % Plt Count (150-450) k/uL Lymphocytes # (1.0-4.8) k/uL ABG pH 7.34 L (7.35-7.45) ABG pO2 79 L (83-108) mmHg ABG HCO3 19 L (21-25) mmol/L Sodium (137-145) mmol/L Chloride (98-107) mmol/L Carbon Dioxide (22-30) mmol/L BUN (9-20) mg/dL Creatinine (0.66-1.25) mg/dL Glucose (74-99) mg/dL CSF Tot Nucleated Cells (0-5) u/L CSF Total Protein (12-60) mg/dL Microbiology - Last 24 Hours (Table) 05/02/19 15:08 CSF Gram Stain - Preliminary Cerebral Spinal Fluid 05/01/19 03:15 Urine Culture - Final Urine,Voided 05/01/19 10:15 Blood Culture - Preliminary Blood No Growth after 24 hours 05/01/19 09:43 Blood Culture - Preliminary Blood No Growth after 24 hours Assessment and Plan Assessment: Altered mental status, likely multifactorial. Cannot r/o watershed ischemic infarcts due to hypotensive episodes or encephalitis. CSF prelim numbers borderline, need HSV PCR confirmation. Plan: -EEG shows diffuse slowing c/w metabolic encephalopathy. -On acyclovir and ABX per ID who is following. HSV PCR pending. -MRI Brain wo louisa r/o watershed CVA given h/o hypotension. -Also concerns about metastatic disease. Pulmonology following. -Acute on chronic renal failure. Nephrology following. -d/w ICU staff. All questions answered. Thank you again for this consultation. Please call with ?. Time with Patient: Less than 30 (Time spent in direct patient care, greater than 50% of which was spent in [id number] counseling and coordination of care: 70 minutes)
[2019-05-03] MEDS ORDERED: ENOXAPARIN 30 MG/0.3 ML SYRINGE SQ SCH (09:00)
[2019-05-03] MEDS: PIPERACILLIN-TAZOBACTAM 3.375 GM in SODIUM CHLORIDE 0.9% 100 ML IVPB SCH (09:10)
[2019-05-03] MEDS: TAMSULOSIN 0.4 MG CAP.ER.24H PO SCH (09:11)
[2019-05-03] MEDS: THIAMINE 100 MG TAB PO SCH (09:11)
[2019-05-03] MEDS: ACYCLOVIR SODIUM 1,000 MG in SODIUM CHLORIDE 0.9% 250 ML IVPB SCH (09:11)
[2019-05-03] MEDS: ZINC SULFATE 220 MG CAP PO SCH (09:12)
[2019-05-03] MEDS: SODIUM BICARBONATE TAB 650 MG TAB PO SCH (09:12)
[2019-05-03] MEDS: ISOSORBIDE MONONITRATE ER 30 MG TAB.ER.24H PO SCH (09:12)
[2019-05-03] MEDS: GABAPENTIN 100 MG CAP PO SCH (09:12)
[2019-05-03] MEDS: FAMOTIDINE 20 MG/2 ML VIAL IV SCH (09:12)
[2019-05-03] MEDS: CHLORHEXIDINE GLUCONATE 15 ML CUP MUCOUS MEM SCH (09:12)
[2019-05-03] MEDS: DULoxetine HCL 60 MG CAPSULE.DR PO SCH ×3 (09:12→09:34)
[2019-05-03] MEDS: ALLOPURINOL 100 MG TAB PO SCH (09:12)
[2019-05-03] MEDS: ASCORBIC ACID 500 MG TAB PO SCH (09:12)
[2019-05-03] MEDS: VITAMIN A 10,000 UNIT CAPSULE PO SCH (09:34)
--- NOTE | 2019-05-03 09:57 | XR ---
EXAMINATION TYPE: XR chest 1V DATE OF EXAM: 05/03/2019 COMPARISON: Prior chest x-ray 05/02/2019 HISTORY: Intubated TECHNIQUE: Single frontal view of the chest is obtained. FINDINGS: Endotracheal tube and orogastric tube are overlying appropriate positions. Patient is rota jean. There are overlying cardiac leads. No evident pneumothorax. Basilar increased density is present , the right hemidiaphragm is partially obscured. Aorta appears ectatic. Heart size is likely stable. IMPRESSION: Rotated exam. Correlate for pneumonia, atelectasis. There is aortic aneurysm.
[2019-05-03] MEDS ORDERED: SODIUM CHLORIDE 0.45% 1,000 ML IV SCH (11:30)
--- NOTE | 2019-05-03 12:01 | P.PN ---
Subjective Progress Note Date: 05/03/19 Principal diagnosis: Mental status change, exact etiology is not clear. 68-year-old -[place] male patient, was hospitalized because of shortness of breath and chest pain. Currently confused and unable to provide any history. Reviewed the records. My consultation is mainly to comment on the pulmonary nodules that were seen in the CAT scan of the chest. I reviewed the records. The patient has previous history of MGUS. He also has multiple medical problems and comorbidities. He has had previous history of CVA, hypertension, migraine, peripheral neuropathy, TIA, obstructive sleep apnea that improved following her bariatric surgery, chronic stage III kidney disease and the patient has undergone previous one Y gastric bypass surgery for morbid obesity. He also has previous history of smoking in addition to previous history of substance abuse including cocaine and heroin and marijuana. During this current admission, injection was positive for opiates. Chest x-ray was negative. There was cardiomegaly. CAT scan of the brain showed no acute abnormalities. CAT scan of the chest abdomen and pelvis showed only nodules along the pleural surface that has progressed in size and for that reason a pulmonary consultation was requested. Noted the patient also has cardiomyopathy with an ejection fraction of 25-30%. Currently he is delirious. 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 The lung show subpleural nodularity in the left which has progressed and interval. No pleural effusion. There is no other lesion along the left cardiac border that was seen on the previous PET scan. In fact, a PET scan was done regarding the pulmonary nodules back in 02/23/2019 and this was ordered by his primary care physician, Dr. Brian Gallegos, and the PET scan showed a soft tissue density present in the posterior left heart border associated with a SUV of 3.9 and this was somewhat difficult to differentiate as its immediately adjacent to the hypermetabolic hearts. The pleural lesion did not show any activity. On 04/29/2019 patient seen in follow-up on medical surgical floor. He is sedated, he had received some Ativan apparently earlier this morning he was agitated, delirious, attempting to get up out of bed unassisted. He is suspected to be actively withdrawing from alcohol, and he is on CIWA protocol. Remainder pulse ox is 98%, patient is afebrile, hemodynamically patient is stable, blood and urine cultures have shown no growth, today's labs have been reviewed, showing white blood cell count of 6.2, hemoglobin of 11.6, electrolytes were within normal limits, BUN of 61 creatinine is 3.84. Urinalysis was negative, ID service is following, and patient is on Zosyn for there can antibiotic coverage. In view of his delirious state, and altered mentation anesthesia was consulted for lumbar puncture, which is supposed to take place sometime today. Afebrile, construction safety consultant is at the bedside, hemodynamically patient is stable. Hematology is following. No difficulty breathing, maintain aspiration precautions. Lung sounds reveal some scattered rhonchi Patient was reevaluated today on 05/01/2019, he is now in the ICU on mechanical ventilation. We were actually seeing the patient for subpleural pulmonary nodules, and we felt that these should be addressed on an outpatient basis once his mental status clears. Patient continues to have issues with his mental status and confusion, and he was having intermittent episodes of agitations. Could not have lumbar puncture done by anesthesia, and apparently last night his condition deteriorated, patient went into hypoxic and hypercapnic respiratory failure requiring intubation and mechanical ventilation. He was also noted to be hypotensive requiring norepinephrine presently at 0.14 mcg/kg/m and he is on propofol at 75 mcg/kg/m. His ventilator settings are assist control rate of 18 tidal volume of 500 FiO2 of 55% and PEEP is 5. ABG showed a pO2 of 92 pCO2 of 40 0 pH of 7.31. CBC is relatively normal. Basic metabolic profile is relatively normal. Renal functioning is abnormal with a BUN of 64 creatinine of 3.64, being followed by nephrology. His ABG yesterday post intubation showed a pO2 of 158 pCO2 of 50 pH of 7.27 which clearly indicates that the patient dev eloped possibly a combined picture of hypoxic and hypercapnic respiratory failure. His chest x-ray is showing significant airspace disease involving the right lung consistent with most likely aspiration pneumonia. Patient remains on Zosyn. And he is being followed by infectious disease. Urinalysis is suggestive of urinary tract infection. Blood cultures have been negative since admission. Urine cultures have been negative so far. Sputum cultures are pending but the Gram stain is showing many gram-positive cocci and rare gram- negative bacilli. Antibiotics diaz, patient was placed on Zosyn and he is also on acyclovir empirically since the lumbar puncture could not be performed yesterday. Seen by neurology on consultation, and seems to be concerned about possible watershed ischemic infarcts due to hypotensive episodes or encephalitis. In the meantime they seem to be agreeable with acyclovir and antibiotics as per infectious disease. The pulmonary nodules noted on the CT of the chest are to be addressed on an outpatient basis or once his mental status issue improves. Reevaluated today on 05/02/2019, remains in the ICU, intubated, scheduled to have lumbar puncture today by anesthesia. His ventilator settings are assist control rate of 18 tidal volume of 500 FiO2 40% PEEP of 5. Chest x-ray showed significant improvement in hisdisease involving the right lung, remains on a ntibiotics for presumptive aspiration pneumonia. ABG showed a pO2 of 119 pCO2 of 35 pH of 7.35 bicarb remains a bit low at 18. And that's because of his renal functioning. The intensity 5 creatinine 3.61. Patient was given a sedation interruption trial, and his mental status remains extremely poor, did not have any purposeful movements, did not follow any instructions. Reevaluated today on 05/03/2019, patient remains in the ICU, mechanically ventilated. 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 Patient underwent lumbar puncture which came back basically nondiagnostic and nonspecific. Awaiting PCR for herpes simplex virus. And that is pending. Patient was seen by neurology today, and he is recommending MRI or possibly transferred to a tertiary care center. The protein on the spinal fluid was on 05, glucose was 60. And there was 11 nucleated cells. Ventilator settings are tidal volume of 500 assist control rate of 18 FiO2 is 40% PEEP of 5. Patient is on propofol at 20 mcg/kg/m. Norepinephrine is minimal at 0.032 mcg/kg/m. ABG showed a pO2 of 79 pCO2 of 35 pH of 7.34. CBC is relatively unremarkable WBC count 6.7 hemoglobin is 10.2. Electrolytes are normal except for elevated sodium of 147 chloride is 120. Renal functioning is about the same with BUN of 50 creatinine 3.03. HSV PCR on spinal fluid is pending. Off propofol, patient was awakened, however he is not responding to any stimuli, opens eyes, and they seem to deviate upwards and to the right. Patient does not seem to comprehend any verbal stimuli. And has no purposeful movement whatsoever. Objective - Vital Signs Vital signs: Vital Signs Temp 94.8 F L 05/03/19 07:00 Pulse 59 L 05/03/19 07:00 Resp 18 05/03/19 07:00 BP 135/85 05/03/19 07:00 Pulse Ox 95 05/03/19 07:00 Intake & Output 05/02/19 05/03/19 05/03/19 18:59 06:59 18:59 Intake Total 1068.695 0476.43 123.764 Output Total 950 410 Balance 804.641 9523.43 123.764 Weight 80.4 kg Intake: IV 1005 665 53 Acyclovir Sodium 1,000 mg 270 In Sodium Chloride 0.9% 250 ml @ 270 mls/hr IVPB Q24HR [facility] Rx#:[id number] Sodium Chloride 0.9% 1, 735 635 50 000 ml @ 50 mls/hr IV . Q20H [facility] Rx#:[id number] pressure bag 30 3 Intake, IV Titration 122.019 190.43 37.764 Amount Norepinephrine 4 mg In 190.43 37.764 Sodium Chloride 0.9% 250 ml @ 0.05 MCG/KG/MIN 15. 735 mls/hr IV .Q16H9M [facility] Rx#:[id number] Propofol 1,000 mg In 122.019 Empty Bag 1 bag @ Titrate IV .Q0M [facility] Rx#: [id number] Oral 160 Tube Feeding 303 429 33 Other 400 Output: Urine 950 410 Stool 0 Other: Voiding Method Indwelling Catheter Indwelling Catheter # Voids 0 30 # Bowel Movements 0 ABP, PAP, CO, CI - Last Documented Arterial Blood Pressure 129/65 - Exam Physical Exam: Revealed a 68-year-old male on mechanical ventilation, Head: Atraumatic, normocephalic. HEENT:[Neck is supple.] [No neck masses.] [No thyromegaly.] [No JVD.] Endotracheal tube is intact. Orogastric tube is intact. Moist mucous membranes. Chest: [Crackles and rhonchi noted on the right side, left side is relatively clear. Symmetrical chest expansion noted.] Cardiac Exam: [Normal S1 and S2, no S3 gallop, no murmur.] Abdomen: [Soft, nontender, no megaly, no rebound, no guarding, normal bowel sounds.] Extremities: [No clubbing, no edema, no cyanosis.] Good pulses bilaterally. Neurological Exam: Off propofol, patient opens eyes, deviated upward and to the right, does not follow any instructions, has no purposeful movement whatsoever. Positive corneals, grimaces, positive cough. Psychiatric: Cannot be assessed. Skin: No rashes. Lymphatics: No lymphadenopathy. - Labs CBC & Chem 7: 05/03/19 04:30 05/03/19 04:30 Labs: Abnormal Lab Results - Last 24 Hours (Table) 05/02/19 05/03/19 05/03/19 Range/Units 15:08 04:30 04:30 RBC 3.46 L (4.30-5.90) m/uL Hgb 10.2 L (13.0-17.5) gm/dL Hct 31.9 L (39.0-53.0) % Plt Count 128 L (150-450) k/uL Lymphocytes # 0.4 L (1.0-4.8) k/uL ABG pH (7.35-7.45) ABG pO2 (83-108) mmHg ABG HCO3 (21-25) mmol/L Sodium 147 H (137-145) mmol/L Chloride 120 H (98-107) mmol/L Carbon Dioxide 18 L (22-30) mmol/L BUN 50 H (9-20) mg/dL Creatinine 3.03 H (0.66-1.25) mg/dL Glucose 101 H (74-99) mg/dL CSF Tot Nucleated Cells 11 H* (0-5) u/L CSF Total Protein 105 H (12-60) mg/dL 05/03/19 Range/Units 07:24 RBC (4.30-5.90) m/uL Hgb (13.0-17.5) gm/dL Hct (39.0-53.0) % Plt Count (150-450) k/uL Lymphocytes # (1.0-4.8) k/uL ABG pH 7.34 L (7.35-7.45) ABG pO2 79 L (83-108) mmHg ABG HCO3 19 L (21-25) mmol/L Sodium (137-145) mmol/L Chloride (98-107) mmol/L Carbon Dioxide (22-30) mmol/L BUN (9-20) mg/dL Creatinine (0.66-1.25) mg/dL Glucose (74-99) mg/dL CSF Tot Nucleated Cells (0-5) u/L CSF Total Protein (12-60) mg/dL Microbiology - Last 24 Hours (Table) 04/30/19 23:13 Gram Stain - Final Sputum Sputum Culture - Final 05/02/19 15:08 CSF Gram Stain - Preliminary Cerebral Spinal Fluid CSF Culture - Preliminary 05/01/19 03:15 Urine Culture - Final Urine,Voided 05/01/19 10:15 Blood Culture - Preliminary Blood No Growth after 24 hours 05/01/19 09:43 Blood Culture - Preliminary Blood No Growth after 24 hours Assessment and Plan Assessment: 1 acute hypoxic and hypercapnic respiratory failure secondary to extensive right sided pneumonia, strongly suspect aspiration pneumonia. Continue Zosyn. 2 altered mentation currently under investigation. Spinal fluid is nondiagno stic. However did show elevated protein. PCR for HSV is pending. 3 severe cardiomyopathy with an ejection fraction of 25-30% 4 history of monoclonal gammopathy 5 acute on chronic kidney injury secondary to hypotension, and septic shock. 6 suspect septic shock secondary to pneumonia, requiring small dose of norepinephrine, and remains on antibiotics. 7 encephalopathy and possible encephalitis, 8 history of substance abuse including cocaine and heroin as well as marijuana 9 history of chronic kidney disease stage III 10 multiple subpleural pulmonary nodules will eventually need further investigation once his neurological status improves. Recommendation: At this point in time, and considering the patient is not making much of any improvement, I would definitely recommend considering referring the patient to a tertiary care center, the urologist on the case is recommending the same. Also infectious disease specialist is recommending the same. I think we will let the primary care physician on the case aware of the recommendations of the different specialists, and sending the patient to a tertiary care center where in he could have an MRI would be of significant value at this point. Patient remains critically ill. No plans to wean or extubated at this point, his mental status is extremely poor and he will not tolerate extubation. We will continue to follow. Critical care time is 40 minutes. Time with Patient: Greater than 30
[2019-05-03 12:22] LABS: Glucose,Whole Blood 104 mg/dL (75-99)
--- NOTE | 2019-05-03 12:51 | P.DS ---
Providers Date of admission: 04/24/19 21:57 Expected date of discharge: 05/03/19 Attending physician: Janice Lowe Consults: 04/24/19 21:58 Consult Physician Routine Consulting Provider: Tanner Tate Consult Reason/Comments: chest pain Do you want consulting provider notified?: Yes 04/27/19 21:57 Consult Physician Routine Consulting Provider: Maribel Alexander Consult Reason/Comments: persistent fevers Do you want consulting provider notified?: Yes 04/27/19 21:58 Consult Physician Routine Consulting Provider: Dave Nguyen Consult Reason/Comments: POSS METASTATIC LESION CT CHEST Do you want consulting provider notified?: Yes 04/28/19 11:28 Consult Physician Routine Consulting Provider: Bernardino Lino Consult Reason/Comments: pulm nodules Do you want consulting provider notified?: Yes 04/28/19 13:48 Consult to Anesthesia Stat Consulting Provider: Anesthesia,Services Consult Reason/Comments: LP/CSF 04/29/19 12:31 Consult Physician Routine Consulting Provider: Benitez Burgos Consult Reason/Comments: Zhao Do you want consulting provider notified?: Yes 04/30/19 13:00 Consult Physician Routine Consulting Provider: Lulu Mc Consult Reason/Comments: mental status change, hypothermia Do you want consulting provider notified?: Yes 05/01/19 08:00 Consult Physician Routine Consulting Provider: Jered rCane Consult Reason/Comments: Chest pain Do you want consulting provider notified?: Already Contacted Primary care physician: Brian Weiss Course: This is a 68-year-old -Citizen Of [place] male patient of Dr. Gallegos with a past medical history of hypertension, migraine headaches, lower extremity neuropathy, TIA in 2008, obstructive sleep apnea resolved after bariatric surgery, gastroesophageal reflux disease, chronic kidney disease stage III, morbid obesity status post Dorian-en-Y, tobacco use and dependence, remote history of drug use with cocaine, heroin and marijuana. Patient complains of chest pain as well as bilateral shoulder pain that been going on for 4-5 days. He does give history of having Route rotator cuff tears. He complains of chronic low back pain. He states his blood pressure at the office is usually between 120 and 130. Patient presented to [facility] emergency center for evaluation. Temperature 100.8, heart rate 88, blood pressure 178/128. Patient was given nitro bid ointment and Catapres. Blood pressure did drop to 62/42. CBC within normal range, sodium 134, potassium 5.1, chloride 103, CO2 23, BUN 27 creatinine 2.29. Baseline creatinine is in the twos. Blood sugar 129. Troponins of been 0.030, 0.037, 0.022. Urinalysis was negative. Urine drug screen positive for opiates. Chest x-ray shows no acute cardiopulmonary process. Cardiomegaly. Aortic aneurysm. CAT scan of the brain showed no acute abnormality. CT of the chest abdomen and pelvis reveals interval progression of pleural nodules may be due to metastatic disease. Aortic aneurysm. Cardiomegaly. Noncontrast exam. Postop changes. Correlate for possible enteritis. This morning blood pressure is 157/98, pulse ox 95% on room air, afebrile, heart rate 79. Patient has been seen by Dr. Crane and chest pain is noncardiac and has been cleared for discharge. They can do an outpatient stress test. Echo has been obtained and report is pending. 04/26: Patient ran temps up to 102.5 through the night and was started on ceftriaxone. The patient states that he did take some pain medicine for back and abdominal pain. Patient is noted to have some left lower quadrant pain. He denies any recent intake of nuts or seeds. No diarrhea. He denies any headache. We will change antibiotics to Zosyn. Blood pressure today is 146/90 which is improved. Cardiology has signed off. Patient will be transferred [facility] floor without telemetry. Anticipate possible discharge home tomorrow. Echocardiogram reveals EF of 25-30%, mild aortic valve sclerosis, no aortic stenosis, trace mitral regurgitation, mild tricuspid regurgitation, no pulmonary hypertension, trivial pericardial effusion. Patient last followed up with Dr. Rowan in October 2015. At that time, he had a known ejection fraction of 45%. 04/27: Patient's discharge was held today, secondary to his confusion, and fidgetiness, patient's symptom be alert and oriented to situation, per family he lives in a custodial house, last alcohol intake was November 23, denies any other social drug uses, Imitrex and posterior on opiates for which he is on hydrocodone, creatinine is elevated currently at 3.39, from a previous number of 2.23, creatinine 56, patient had urinary retention of 700 mL, cath was inserted, thereafter he is fidgetiness and last night was improved, ciwa protocol was initiated, nursing staff has noticed him to be weaker with balance issues, no tremors noted, patient can move all 4 extremities, on examination, no dysarthria noted, no facial droop, no aspirate the events blood pressure of 122/78, heart rate of 57, patient has a temp of 99.8 from a previous PA CAT scan was reviewed, there is interval progression of pleural nodules, may be due to metastatic disease, aortic aneurysm, cardiomegaly, noncontrast exam, postop changes correlate for possible enteritis patient does not have any diarrhea, CT of the brain shows no hydrocephalus, orbits are stable, inflammatory changes within the maxillary sinuses, IV antibiotics started, consults were made with Dr. Alexander secondary to recurrent fevers, no primary source identified, might need LP, with viral cultureshsv 04/28, patient remains in the room without any safety sees , he seems to be more alert today however he requires Ativan for impulsiveness and agitation, he seems to be oriented to time and place and person, however he gets crepitation off his behaviors from aggressive to being sleepy, nursing staff has held the gabapentin, we will decrease Birdsnest to 7.53-5. LP is planned for the morning, to evaluate encephalitis no change in antibiotic from Dr. Alexander patient has been seen by oncology, and an panel ordered, pulmonary also was consulted, no plans for bronchoscopy as it is not amenable or accessible, no immediate need for CT guided biopsy, as per their recommendation based on a PET/CT done outpatient January 2019 with the posterior left heart border SUV off 3.9 that was difficult to differentiate as it is immediately adjacent to the hyper metabolic cardiac muscle 04/29: Patient continues to have mental status changes and has a sitter at the bedside. Patient was very confused and trying to get out of bed this morning. He does complain of some headache. Patient is refusing to eat today. Blood pressure is on the lower side for which hydralazine will be discontinued. He is scheduled for LP today. Patient has been followed by Dr. Alexander, pulmonary medicine and oncology. Pulmonary medicine is planning for CT guided needle aspirate biopsy of the subpleural lesion on the left by interventional radiology once patient's mental status has been cleared. I'll repeat lab work reveals white count of 6.2, hemoglobin 11.6, platelet count 128. BUN 61 creatinine 3.84, blood sugar 117. Liver function tests and electrolytes unremarkable. 04/30: Patient has been hypothermic during the night with a rectal temperature of 93.6. Currently heart rate is 57, blood pressure 103/61, pulse ox 98% on room air. TSH 0.871. IgG a IgG IgM within normal limits, SUJATA screen negative. Free [place] 13.2, free lambda 6.57 are both elevated. Albumin PEEP is low at 3.55. Alpha-1 globulins and alpha-2 globulins within normal limits, beta globulins within normal limits, gamma globulins normal limits. No monoclonal paraprotein identified. Patient continues to have significant confusion and LP was attempted this morning but unsuccessful due to patient being uncooperative. We have ordered a CAT scan of the brain that showed a related changes of atrophy and chronic small vessel ischemia. Due to worsening renal function, consult added for nephrology for acute kidney injury. He has started the patient on normal saline at 75 mL per hour. Due to patient's blood pressure being low. We have discontinued amlodipine and when necessary hydralazine and Birdsnest has also been discontinued. A cortisol level ordered for 4 PM. CIWA protocol changed to Ativan half milligram every 4 hours as needed for anxiety/agitation. 05/01: Last evening, A-Team was called as patient was found to have pulse ox of 65% on room air and hypotensive and not responding to sternal rub. Patient was initially placed on a nonrebreather and transferred to the intensive care unit where he has subsequently been intubated and placed on mechanical ventilation. Patient has required norepinephrine. He is currently sedated. Melendez catheter was placed. Patient has been seen by neurology with recommendations for EEG which is being done today. Chest x-ray from yesterday reveals diffuse airspace opacities throughout the right lung which may be inflammatory or infectious. Dr. Alexander has added acyclovir. Repeat lab work reveals white count of 5.8, hemoglobin 11.9, platelet count 136. Sodium 144, potassium 4.4, chloride 114, CO2 19, BUN 64 and creatinine 3.64. Calcium is 8.2, phosphorus 6.8, magnesium 3.0. 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 Urinalysis is cloudy, leukoesterase large, RBCs greater than 182, WBCs 52, WBC clumps moderate, rare yeast. Cortisol level at 10:58 AM was 22 and at 2347. Temperature this morning is normalized to 98.9, pulse 70, blood pressure 101/54. Patient remains intubated and on mechanical ventilation with tidal volume 500, FiO2 55, PEEP 5. Urine output has been 50 mL per hour. He remains on vasopressors. He has not been tried on a sedation holiday today. We will reorder a diagnostic LP to be done tomorrow 24 hours after Lovenox. 05/02: Patient remains intubated and on mechanical ventilation with tidal volume 500, FiO2 40, PEEP of 5. He still on low-dose norepinephrine and on sedation. He has been started on tube feedings at 30 miles per hour. Patient is scheduled for LP to be completed today. A repeat chest x-ray in the shows some improvement of his disease in the right lung. The patient is on Zosyn as well as acyclovir and followed by Dr. Alexander. Patient was seen by Dr. Crane with plan to hold beta blockers and continue the rest of his medications. Sodium bicarb oral has been unit by Dr. Burgso. Temperature is currently stable without fever or hypothermia. Heart rate is 55, blood pressure 118/62 and to be weaned off vasopressor. WBC 8.8 hemoglobin 10.3, platelet count 116. Sodium 147, potassium 4.0, chloride 119, CO2 18, BUN 55 and creatinine 3.61. 05/03: Patient remains in the intensive care unit. Cor temperature 94.8, heart rate 59, blood pressure 135/85, blood pressure 129/65. Patient remains in tubated and on mechanical ventilation with tidal 500, FiO2 40 and PEEP of 5. This morning, patient was noted to have gaze deviated to the left and neurology has recommended transfer to tertiary care. White count is 6.7, hemoglobin 10.2, platelet count 128. Sodium 137, potassium 3.9, chloride 120, CO2 18, BUN 15 creatinine 3.03. Diagnostic lumbar puncture was completed yesterday. Cerebrospinal fluid was clear, nucleated cells 11, RBCs 0 mononuclear 99 and probably nuclear 1, glucose 60 and total protein 105. HSV by DNA PCR is not detected. Repeat chest x-ray correlate for pneumonia, atelectasis. There is aortic aneurysm. All blood cultures and urine cultures obtained are showing no growth. Serial spinal fluid culture in preliminary. Direct physician to physician report has been given and patient accepted at [facility]. Patient be transferred once all arrangements are completed. Discharge diagnoses: 1. Chest pain, most likely musculoskeletal or related to bilateral rotator cuff injuries. Cardiology consult appreciated. Echocardiogram as above. 2. Hypertensive emergency. Patient is now hypotensive and hydralazine oral, amlodipine, Coreg and IV hydralazine discontinued. Continue vasopressor. 3. Acute enteritis ruled out or less likely. 4. Acute metabolic encephalopathy with fever secondary to possible viral encephalitis but less likely based on findings from LP. Metastatic brain disease not ruled out. 5. Abnormal imaging studies in CT, increasing pleural nodules, possible hypermetabolic lesion posterior to the cardiac border. 6. Severe cardiomyopathy with EF of 25-30%. Patient previously seen by Dr. Rowan with no follow-up since 2016. At that time known EF of 45. 7. Urinary retention requiring straight cath/melendez. 8. Acute kidney injury. 9. Postobstructive uropathy with renal failure, no hydronephrosis on CT. 10. Acute respiratory failure secondary to acute respiratory arrest requiring intubation and mechanical ventilation. 11. Acute septic shock secondary to probable viral encephalitis and extensive right-sided pneumonia, possible aspiration pneumonia. 12. Possible acute catheter associated urinary tract infection. 13. History of TIA, stable. 14. Gastroesophageal reflux disease. 15. Neuropathy bilateral lower extremities. 16. History of morbid obesity status post Dorian-en-Y with resolution of sleep apnea with weight loss. 17. Tobacco use and dependence. 18. Chronic back pain, discontinue Birdsnest. 19. GI prophylaxis. Pepcid. 20. DVT prophylaxis. Lovenox. Prognosis guarded Impression and plan of care have been directed as dictated by the signing physician. Gladys Loyd nurse practitioner acting as scribe for signing physician. Patient Condition at Discharge: Stable Plan - Discharge Summary Discharge Rx Participant: No New Discharge Prescriptions: No Action Carvedilol [Coreg] 25 mg PO BID Calcium Carbonate [Calcium] 600 mg PO BID #60 tablet Vitamin A 8,000 unit PO DAILY #30 capsule Glucosamine/Chondr Lopez A Sod [Osteo Bi-Flex Caplet] 1 tab PO BID Zinc 50 mg PO DAILY DULoxetine HCL [Cymbalta] 60 mg PO DAILY Allopurinol [Zyloprim] 100 mg PO DAILY Ginseng 100 mg PO DAILY Ascorbic Acid [Vitamin C] 1,000 mg PO DAILY Thiamine [Vitamin B-1] 50 mg PO DAILY Cyanocobalamin (Vitamin B-12) [Vitamin B12] 2,500 mcg PO DAILY Gabapentin [Neurontin] 300 mg PO TID Magnesium Oxide 400 mg PO BID Ergocalciferol [Vitamin D2] 50,000 unit PO Q14D HYDROcodone/APAP 10-325MG [Birdsnest 10-325] 1 tab PO TID Calcitriol [Rocaltrol] 0.25 mcg PO Q14D Discharge Medication List Carvedilol [Coreg] 25 mg PO BID 10/23/14 [History] Calcium Carbonate [Calcium] 600 mg PO BID #60 tablet 10/14/15 [Rx] Vitamin A 8,000 unit PO DAILY #30 capsule 10/14/15 [Rx] Glucosamine/Chondr Lopez A Sod [Osteo Bi-Flex Caplet] 1 tab PO BID 01/28/16 [History] Zinc 50 mg PO DAILY 12/16/16 [History] DULoxetine HCL [Cymbalta] 60 mg PO DAILY 06/14/17 [History] Allopurinol [Zyloprim] 100 mg PO DAILY 06/06/18 [History] Ascorbic Acid [Vitamin C] 1,000 mg PO DAILY 06/06/18 [History] Cyanocobalamin (Vitamin B-12) [Vitamin B12] 2,500 mcg PO DAILY 06/06/18 [History] Ginseng 100 mg PO DAILY 06/06/18 [History] Thiamine [Vitamin B-1] 50 mg PO DAILY 06/06/18 [History] Gabapentin [Neurontin] 300 mg PO TID 12/19/18 [History] Magnesium Oxide 400 mg PO BID 12/19/18 [History] Ergocalciferol [Vitamin D2] 50,000 unit PO Q14D 03/26/19 [History] Calcitriol [Rocaltrol] 0.25 mcg PO Q14D 04/24/19 [History] HYDROcodone/APAP 10-325MG [Birdsnest 10-325] 1 tab PO TID 04/24/19 [History] Follow up Appointment(s)/Referral(s): Brian Gallegos MD [Primary Care Provider] - 1-2 days (Office is closed on Monday's. Please call to schedule appointment) Jered Crane MD [STAFF PHYSICIAN] - 05/08/19 2:45 pm (Monday) Patient Instructions/Handouts: Chest Pain (DC)
[2019-05-03 12:59] VITALS: BMI 23.3
[2019-05-03 13:02] VITALS: BP 129/81; TEMP 93.9
--- NOTE | 2019-05-03 13:37 | PN ---
PROGRESS NOTE Patient is seen for followup for acute kidney injury. His renal function is improving. Patient has had good urine output. He remains on a small dose of Levophed. IV fluids were decreased to 50 mL an hour yesterday. The FiO2 is at 40%. The patient was following commands on sedation holiday yesterday. PHYSICAL EXAMINATION: On examination this morning, blood pressure was 135/85, heart rate 59 per minute. He is afebrile. EXAMINATION OF THE HEART: S1, S2. EXAMINATION OF THE LUNGS: Bilateral breath sounds are heard. Abdomen is soft, nontender. Examination of the lower extremities shows no significant edema. [employer] ORIGINATOR ASSISTANT exam cannot be performed as patient is sedated. LABS: Labs show sodium 147, potassium 3.9, BUN 50, serum creatinine 3.0. Hemoglobin 10.2 g/dL. ASSESSMENT: 1. Acute kidney injury, acute tubular necrosis, currently nonoliguric and improving. Continue gentle IV hydration. Repeat labs in a.m. Avoid nephrotoxic agents. 2. Metabolic acidosis. Maintained on oral sodium bicarb. 3. Encephalopathy, possibly herpetic encephalitis, maintained on acyclovir. 4. Vent dependent respiratory failure. 5. Hypernatremia. Sodium is the same as yesterday at 147. Patient is receiving free water down the feeding tube. I will change his normal saline to half-normal saline. PLAN: Change saline to half-normal saline. Continue at 50 mL an hour. Continue free water down the feeding tube. Repeat labs in a.m. Continue to avoid nephrotoxic agents. MMODL / IJN: [id number] /
[2019-05-03 13:47] VITALS: PULSE 6
[2019-05-03] MEDS ORDERED: ACYCLOVIR SODIUM 1,000 MG in SODIUM CHLORIDE 0.9% 250 ML IVPB SCH (21:00)
== END 2019-05-03 14:22 | disposition short-term general hospital (02) | DRG 304 ==
LOC: EC 16:37 → 3SCARD 21:57 → 4MS4W 04-26 23:08 → 2SICU 04-30 21:53
PROVIDERS: ADMIT Internal Medicine; ATTEND Internal Medicine
PROC: 5A1945Z Respiratory Ventilation, 24-96 Consecutive Hours (ICD-10-PCS; principal; 2019-04-30)
PROC: 0BH17EZ Insertion of Endotracheal Airway into Trachea, Via Natural or Artificial Opening (ICD-10-PCS; 2019-04-30)
DX: I16.1 Hypertensive emergency (principal); G93.41 Metabolic encephalopathy; A41.9 Sepsis, unspecified organism; R65.21 Severe sepsis with septic shock; N17.0 Acute kidney failure with tubular necrosis; J69.0 Pneumonitis due to inhalation of food and vomit; J96.01 Acute respiratory failure with hypoxia; J96.02 Acute respiratory failure with hypercapnia; I42.9 Cardiomyopathy, unspecified; A86 Unspecified viral encephalitis; E87.0 Hyperosmolality and hypernatremia; E87.2 Acidosis; Z99.11 Dependence on respirator [ventilator] status; R07.2 Precordial pain; N18.3 Chronic kidney disease, stage 3 (moderate); K21.9 Gastro-esophageal reflux disease without esophagitis; M54.5 Low back pain; I13.10 Hypertensive heart and chronic kidney disease without heart failure, with stage 1 through stage 4 chronic kidney disease, or unspecified chronic kidney disease; G62.9 Polyneuropathy, unspecified; E66.01 Morbid (severe) obesity due to excess calories; F17.200 Nicotine dependence, unspecified, uncomplicated; F32.9 Major depressive disorder, single episode, unspecified; D47.2 Monoclonal gammopathy; G40.909 Epilepsy, unspecified, not intractable, without status epilepticus; M19.90 Unspecified osteoarthritis, unspecified site; S43.422A Sprain of left rotator cuff capsule, initial encounter; S43.421A Sprain of right rotator cuff capsule, initial encounter; I95.9 Hypotension, unspecified; I71.9 Aortic aneurysm of unspecified site, without rupture; G89.29 Other chronic pain; R10.32 Left lower quadrant pain; I08.3 Combined rheumatic disorders of mitral, aortic and tricuspid valves; G43.909 Migraine, unspecified, not intractable, without status migrainosus; I44.7 Left bundle-branch block, unspecified; N13.9 Obstructive and reflux uropathy, unspecified; W19.XXXA Unspecified fall, initial encounter; Z96.652 Presence of left artificial knee joint; Z86.73 Personal history of transient ischemic attack (TIA), and cerebral infarction without residual deficits; Z98.84 Bariatric surgery status; Z79.899 Other long term (current) drug therapy; Z53.09 Procedure and treatment not carried out because of other contraindication; R33.9 Retention of urine, unspecified; Z80.0 Family history of malignant neoplasm of digestive organs; Z82.49 Family history of ischemic heart disease and other diseases of the circulatory system; Z83.3 Family history of diabetes mellitus; Z87.01 Personal history of pneumonia (recurrent); Z86.718 Personal history of other venous thrombosis and embolism; Z68.23 Body mass index [BMI] 23.0-23.9, adult; Z86.61 Personal history of infections of the central nervous system
CPT/HCPCS: 36415; 36600; 70450; 71045; 71046; 71250; 74176; 80048; 80053; 80076; 80306; 81001; 81003; 82140; 82533; 82550; 82553; 82784; 82805; 82945; 83605; 83615; 83690; 83735; 83880; 83883; 84100; 84145; 84153; 84154; 84157; 84165; 84443; 84484; 85025; 85027; 85379; 85610; 85652; 85730; 86038; 86140; 86334; 86695; 86696; 86850; 86900; 86901; 87040; 87070; 87086; 87205; 87449; 87529; 89050; 93005; 93306; 94002; 94003; 95816; 99285